=== PATIENT | female | born 1975 | race Caucasian/White ===

== ENCOUNTER → 2020-06-25 14:45 | Outpatient (BNVA) | payer MEDICARE, MEDICAID, SELFPAY | PROVIDERS: PCP Internal Medicine; Visit Provider Surgery Vascular Surgery | DX: I83.12 Varicose veins of left lower extremity with inflammation (principal) | CPT/HCPCS: 99203 ==

== ENCOUNTER 2020-07-19 03:40 | Emergency (ER) | payer MEDICARE, MEDICAID, SELFPAY ==
--- NOTE | 2020-07-19 03:43 | ED_ITS ---
HPI - Psych General Chief Complaint: Anxiety Stated Complaint: anxiety Time Seen by Provider: 07/19/20 03:42 Source: patient and EMS Mode of arrival: EMS Limitations: no limitations History of Present Illness MD complaint: anxiety Onset (ago): hour(s) (few) Duration: constant History of same: Yes Relieving factors: none Exacerbating factors: none Context: significant life stressor Associated psychiatric symptoms: none Associated symptoms: insomnia Treatments prior to arrival: other (took her venlafaxine) Related Data Home Medications Medication Instructions Recorded Confirmed buspirone 15 mg tablet mg PO 06/25/20 diclofenac sodium 75 mg mg PO 06/25/20 tablet,delayed release divalproex 500 mg tablet,delayed mg PO 06/25/20 release Allergies Allergy/AdvReac Type Severity Reaction Status Date / Time aspirin [Aspirin] Allergy Severe RASH Verified 07/19/20 03:48 codeine [CODEINE] Allergy Severe ANAPHYLAXIS Verified 07/19/20 03:48 mayonnaise [MAYONNAISE] Allergy Mild UPSET Verified 07/19/20 03:48 STOMACH, RASH morphine [Morphine] Allergy Mild AGITATION/A Verified 07/19/20 03:48 NXIETY Penicillins Allergy Mild RASH Verified 07/19/20 03:48 cheese Allergy Unknown RASH Verified 07/19/20 03:48 latex [LATEX] Allergy Unknown RASH Verified 07/19/20 03:48 acetaminophen [From Tylenol] AdvReac Mild HEADACHES Verified 07/19/20 03:48 BUTTER FLAVOR Allergy Mild RASH, Uncoded 06/06/20 14:58 UPSET STOMACH Chocolate Allergy Mild UPSET Uncoded 06/06/20 14:58 STOMACH, RASH SPICY FOOD Allergy Mild UPSET Uncoded 06/06/20 14:58 STOMACH, RASH Review of Systems Review of Systems: Constitutional : No Fever, No Chills ENT/Mouth : No Ear Pain, No Nasal Congestion, No sore throat Eyes: No Eye Pain, No Swelling, No Redness Cardiovascular : No Chest Pain, No SOB Respiratory : No Cough, No Sputum, No Dyspnea Gastrointestinal : No Nausea, No Vomiting, No Diarrhea, No Hematochezia, No Melena Genitourinary : No Dysuria, No Urinary Frequency, No Hematuria Musculoskeletal : No Myalgias Skin : No Skin Lesions, No rash Neuro : No Weakness, No Numbness, No Paresthesias, No Dizziness, No Headache Psych : positive Anxiety, positive Depression, no SI/HI Heme/Lymph: No Lymphadenopathy All other systems reviewed and are negative [facility] Past Medical History Medical History Anxiety Asthma Chronic migraine Depression Epilepsy Family History Family History Father Hypertension Stroke CVD (cardiovascular disease) Mother CVD (cardiovascular disease) Hypertension Brother No problems noted. Sister No problems noted. Son No problems noted. Daughter No problems noted. Daughter No problems noted. Social History Social History Smoking Status: Never smoker Physical Exam Vital Signs: Vital Signs: Vital Signs Temp Pulse Resp BP Pulse Ox 07/19/20 03:45 98.4 F 107 H 18 148/74 H 97 Body Mass Index 24.0 Appearance: Alert. Oriented X3. Anxious, mild acute distress. Eyes: Pupils equal, round and reactive to light. ENT: Pharynx normal. Neck: Normal inspection. Neck supple. CVS: Normal heart rate and rhythm. Pulses normal. Respiratory: No respiratory distress. Breath sounds normal. Abdomen: Soft and nontender. Skin: Skin warm and dry. Normal skin color. Normal skin turgor. Extremities: No lower extremity edema. No calf ttp Neuro: Oriented X 3. No motor deficit. No sensory deficit. Intermittent shaking both legs Course Course Course Narrative: patient feels better after IV medications stable for DC MDM - Psych MDM Narrative Medical decision making narrative: 45 yo female with hx of anxiety and seizures (compliant with depakote) comes in with panic attack at this time for anxiety will give IV ativan and observe, no other complaints, dispo per improvement Restraints Face to Face Assessment: Face to Face Assessment: Current Situation: After assessment of the patient, a review of the pertinent medical record and a discussion with nursing staff, I feel the patient requires a restrain intervention. Reaction To: [] Medical Condition: [] Behavioral State: [] Continued Need: [] Discharge Plan Discharge Clinical Impression: Anxiety Patient Disposition: Home, Self-Care Instructions: Anxiety (ED) Additional Instructions: return to ED for any worsening symptoms or concerns, please follow up with your doctor if not better Stand Alone Forms: Work/School Release
[2020-07-19 03:45] VITALS: BP 140/90; BP 148/74; PULSE 107; PULSE 150; RESP 18; TEMP 36.9; O2SAT 97; O2SAT 98; BMI 24.0
[2020-07-19] MEDS: LORazepam 2 MG/ML VIAL 1 MG IVPUSH (03:52)
--- NOTE | 2020-07-19 04:58 | PC.NURSE ---
pt very anxious when she arrived. pt has multiple dental extractions 5 days ago. after receiving 1 mg ativan, pt was able to fall asleep. no witnessed seizure activity.
[2020-07-19 05:38] VITALS: BP 101/66; PULSE 88; RESP 19; O2SAT 100
== END 2020-07-19 07:06 | disposition home or self-care (01) ==
LOC: HO.ED 04:08
PROVIDERS: Emergency Provider Emergency Medicine; PCP Internal Medicine
DX: F41.1 Generalized anxiety disorder (principal); F43.0 Acute stress reaction; G47.00 Insomnia, unspecified; Z79.899 Other long term (current) drug therapy
CPT/HCPCS: 96374; 99283; 99284; J2060

== ENCOUNTER 2020-07-29 01:36 | Emergency (ER) | payer MEDICARE, MEDICAID, SELFPAY ==
[2020-07-29 01:48] VITALS: BP 139/83; PULSE 104; RESP 20; TEMP 37.1; O2SAT 100; BMI 24.5
[2020-07-29 02:14] VITALS: BP 139/83; PULSE 107; RESP 20; TEMP 36.9; O2SAT 100
--- NOTE | 2020-07-29 02:25 | ED_ITS ---
HPI - Psych General Chief Complaint: Psychiatric Symptoms Stated Complaint: ANXIETY Time Seen by Provider: 07/29/20 02:16 Source: patient Mode of arrival: EMS Limitations: no limitations History of Present Illness HPI Narrative: Patient states she has seizures secondary to anxiety. EMS states that she had a panic attack. Patient has been a week without her buspar. Patient denies suicidal or homicidal ideations MD complaint: anxiety Onset (ago): week(s) Duration: constant Related Data Home Medications Medication Instructions Recorded Confirmed buspirone 15 mg tablet 15 mg PO DAILY 06/25/20 07/29/20 diclofenac sodium 75 mg 75 mg PO DAILY 06/25/20 07/29/20 tablet,delayed release divalproex 500 mg tablet,delayed 500 mg PO BID 06/25/20 07/29/20 release Allergies Allergy/AdvReac Type Severity Reaction Status Date / Time aspirin [Aspirin] Allergy Severe RASH Verified 07/19/20 03:48 codeine [CODEINE] Allergy Severe ANAPHYLAXIS Verified 07/19/20 03:48 mayonnaise [MAYONNAISE] Allergy Mild UPSET Verified 07/19/20 03:48 STOMACH, RASH morphine [Morphine] Allergy Mild AGITATION/A Verified 07/19/20 03:48 NXIETY Penicillins Allergy Mild RASH Verified 07/19/20 03:48 cheese Allergy Unknown RASH Verified 07/19/20 03:48 latex [LATEX] Allergy Unknown RASH Verified 07/19/20 03:48 acetaminophen [From Tylenol] AdvReac Mild HEADACHES Verified 07/19/20 03:48 BUTTER FLAVOR Allergy Mild RASH, Uncoded 06/06/20 14:58 UPSET STOMACH Chocolate Allergy Mild UPSET Uncoded 06/06/20 14:58 STOMACH, RASH SPICY FOOD Allergy Mild UPSET Uncoded 06/06/20 14:58 STOMACH, RASH Review of Systems Constitutional: Constitutional: Reports no additional constitutional complaints Eyes: Eyes: Reports no additional eye complaints ENT: Denies dizziness Cardiovascular: Cardiovascular: Reports no additional cardiovascular complaints Respiratory: Respiratory: Reports as per HPI Gastrointestinal: Gastrointestinal: Reports no additional gastrointestinal complaints Genitourinary: Genitourinary: Reports no additional female genitourinary complaints Musculoskeletal: Musculoskeletal: Reports no additional musculoskeletal complaints Integumentary/Breasts: Skin/Breast: Denies rash Neurologic: Reports system reviewed and no additional complaints, except as documented, Denies dizziness and Denies Sensory deficit (Neuro) Psychiatric: Psychiatric: Denies anxiety [facility] Past Medical History Medical History Anxiety Asthma Chronic migraine Depression Epilepsy Family History Family History Father Hypertension Stroke CVD (cardiovascular disease) Mother CVD (cardiovascular disease) Hypertension Brother No problems noted. Sister No problems noted. Son No problems noted. Daughter No problems noted. Daughter No problems noted. Social History Social History Smoking Status: Never smoker Advance Directives: No Advance Directives Information Provided: Yes Physical Exam Vital Signs: Vital Signs: Last Vital Signs Temp 98.4 F 07/29/20 02:14 Pulse 107 H 07/29/20 02:14 Resp 20 07/29/20 02:14 BP 139/83 07/29/20 02:14 Pulse Ox 100 07/29/20 02:14 Body Mass Index 24.5 Const: Other: tearful General: healthy appearing Nutritional Appearance: average body habitus Orientation/consciousness: oriented to person and patien t oriented x3 Limitations: no limitations HENMT: Head: Yes normal to inspection Ears: external ears normal General nose exam: Normal external nose present Mouth: Normal oral and palatal mucosa present and oropharynx normal Throat: Yes posterior oropharynx normal Eyes: General: appearance normal, both eyes and all related structures Neck: Other: supple Neck: Yes normal visual inspection Chest: Chest palpation & inspection: normal inspection of the chest Resp: Auscultation: clear to auscultation bilaterally Cardio: Jugular venous distension: no JVD Rate: regular rate Rhythm: regular rhythm Heart sounds: S1 normal heart sound present and S2 normal heart sound present GI: Inspection: Yes normal to inspection Palpation (GI): Soft to palpation, nontender and No hepatosplenomegaly present Auscultation: normal bowel sounds : General: Yes no CVA tenderness Back/Spine/Pelvis: Back: no CVA tenderness Skin: General skin exam: no rashes or lesions noted Neuro: General: oriented to person and patient oriented x3 Cranial nerves: Yes CN's II-XII intact bilaterally Motor exam (neuro): 5/5 motor strength present throughout Sensory Exam: No Sensory deficit (Neuro) Extrem: General: Yes normal to inspection Psych: Appearance: grossly normal Course Course Course Narrative: resting comfortably will dc home MDM - Psych MDM Narrative Medical decision making narrative: Patient having panic attack and benzodiazepine withdrawal, will dc home Restraints Face to Face Assessment: Face to Face Assessment: Current Situation: After assessment of the patient, a review of the pertinent medical record and a discussion with nursing staff, I feel the patient requires a restrain intervention. Reaction To: [] Medical Condition: [] Behavioral State: [] Continued Need: [] Lab Data Result diagrams: 07/29/20 02:39 07/29/20 02:39 Labs: Lab Results 07/29/20 07/29/20 07/29/20 Range/Units 02:39 02:39 02:39 WBC 10.6 (4.8-10.8) X10*3/uL RBC 5.12 (4.20-5.50) X10*6/uL Hgb 14.1 (12.0-16.0) g/dl Hct 44.3 (37-47) % MCV 86.5 (80-98) fL MCH 27.5 (27.0-33.0) pg MCHC 31.8 (31.0-35.0) g/dl RDW 13.6 (11.0-16.0) % Plt Count 168 (160-400) X10*3/uL MPV 13.9 H (9.4-12.3) fL Absolute Nucleated RBC 0.000 (0.0-0.012) X10*3/uL Nucleated RBC % (auto) 0.0 (0.0-0.2) /100WBC Sodium (135-145) mmol/L Potassium (3.3-5.1) mmol/l Chloride (96-108) mmol/L Carbon Dioxide (22-29) mmol/L Anion Gap (12-20) BUN (9-16) mg/dL Creatinine (0.5-1.4) mg/dL Estim Creat Clear Calc Estimated GFR Random Glucose (60-115) mg/dL Calcium (8.4-10.2) mg/dL Urine Opiates Screen Not Detected (Not Detect) Ur Barbiturates Screen Not Detected (Not Detect) Valproic Acid < 2.0 L (50.0-100.0) mcg/mL Ur Phencyclidine Scrn Not Detected (Not Detect) Ur Amphetamines Screen Not Detected (Not Detect) U Benzodiazepines Scrn Not Detected (Not Detect) Urine Cocaine Screen Not Detected (Not Detect) U Marijuana (THC) Screen Not Detected (Not Detect) 07/29/20 Range/Units 02:39 WBC (4.8-10.8) X10*3/uL RBC (4.20-5.50) X10*6/uL Hgb (12.0-16.0) g/dl Hct (37-47) % MCV (80-98) fL MCH (27.0-33.0) pg MCHC (31.0-35.0) g/dl RDW (11.0-16.0) % Plt Count (160-400) X10*3/uL MPV (9.4-12.3) fL Absolute Nucleated RBC (0.0-0.012) X10*3/uL Nucleated RBC % (auto) (0.0-0.2) /100WBC Sodium 140 (135-145) mmol/L Potassium 4.0 (3.3-5.1) mmol/l Chloride 108 (96-108) mmol/L Carbon Dioxide 24 (22-29) mmol/L Anion Gap 12 (12-20) BUN 6 L (9-16) mg/dL Creatinine 0.87 (0.5-1.4) mg/dL Estim Creat Clear Calc 68.1 Estimated GFR > 60 Random Glucose 97 (60-115) mg/dL Calcium 9.3 (8.4-10.2) mg/dL Urine Opiates Screen (Not Detect) Ur Barbiturates Screen (Not Detect) Valproic Acid (50.0-100.0) mcg/mL Ur Phencyclidine Scrn (Not Detect) Ur Amphetamines Screen (Not Detect) U Benzodiazepines Scrn (Not Detect) Urine Cocaine Screen (Not Detect) U Marijuana (THC) Screen (Not Detect) Discharge Plan Discharge Clinical Impression: Acute anxiety Patient Disposition: Home, Self-Care Instructions: Anxiety (ED) Referrals: Physician,Unknown [Primary Care Provider] - 2 days (Call your doctor in 2 days)
[2020-07-29] MEDS: LORazepam 1 MG TABLET 2 MG PO (02:29)
[2020-07-29] MEDS: busPIRone HCl 10 MG TABLET PO (02:34)
[2020-07-29] MEDS: busPIRone HCl 5 MG TABLET PO (02:34)
--- NOTE | 2020-07-29 02:38 | PC.NURSE ---
Patient anxious received Ativan 2 mg as ordered, provider saw the patient also ordered Buspar 15 mg/administered as ordered, patient compliant with lab draw, no crises order, plan to d/c patient in the morning. Will continue to monitor.
[2020-07-29 02:48] LABS: Hemoglobin 14.1 g/dl (12.0-16.0); PLT ABN DIST 1; WBC ABN SCTR FOR CBC 1
[2020-07-29 02:50] LABS: Hematocrit 44.3 % (37-47); Mean Corpuscular HGB Conc 31.8 g/dl (31.0-35.0); Mean Corpuscular Hemoglobin 27.5 pg (27.0-33.0); Mean Corpuscular Volume 86.5 fL (80-98); Mean Platelet Volume 13.9 fL (9.4-12.3); Platelet Count 168 X10*3/uL (160-400); Red Blood Count 5.12 X10*6/uL (4.20-5.50); Red Cell Distribution Width 13.6 % (11.0-16.0)
[2020-07-29 02:54] LABS: White Blood Count 10.6 X10*3/uL (4.8-10.8)
[2020-07-29 03:02] LABS: Amphetamine Screen Urine Not Detected (Not Detect); Barbiturates, Urine Not Detected (Not Detect); Benzodiazepines Screen Urine Not Detected (Not Detect); Cannabinoid Screen Urine Not Detected (Not Detect); Cocaine Screen Urine Not Detected (Not Detect); Opiate Screen Urine Not Detected (Not Detect); Phencyclidine Screen Urine Not Detected (Not Detect)
[2020-07-29 03:11] LABS: Anion Gap 12 (12-20); Blood Urea Nitrogen 6 mg/dL (9-16); Calcium 9.3 mg/dL (8.4-10.2); Carbon Dioxide 24 mmol/L (22-29); Chloride 108 mmol/L (96-108); Creatinine Clr Calc Pharmacy 68.1; Estimated Glomerular Filt Rate > 60; Glucose Random 97 mg/dL (60-115); Sodium 140 mmol/L (135-145)
[2020-07-29 03:42] LABS: Valproate < 2.0 mcg/mL (50.0-100.0)
--- NOTE | 2020-07-29 04:54 | PC.NURSE ---
Patient in bed appears sleeping comfortably, no distress observed/reported, respiration +/=/non-labored bilaterally, will continue to monitor.
--- NOTE | 2020-07-29 04:59 | PC.NURSE ---
At the time admission patient reported she is compliant with depokote, patient depakote level is 2, provider notified/no new order.
[2020-07-29 06:21] VITALS: RESP 17
[2020-07-29 06:36] VITALS: BP 117/65; PULSE 95; RESP 17; TEMP 36.3; O2SAT 100
== END 2020-07-29 06:40 | disposition home or self-care (01) ==
PROVIDERS: Physician Assistant; Emergency Provider Emergency Medicine
DX: F41.1 Generalized anxiety disorder (principal); F43.0 Acute stress reaction; Z79.899 Other long term (current) drug therapy
CPT/HCPCS: 36415; 80048; 80164; 80307; 85027; 99283

== ENCOUNTER 2020-07-30 22:01 | Emergency (ER) | payer MEDICARE, MEDICAID, SELFPAY ==
[2020-07-30 22:09] VITALS: BP 135/86; BP 148/86; PULSE 105; PULSE 109; RESP 16; TEMP 36.9; O2SAT 97; O2SAT 99; BMI 25.3
--- NOTE | 2020-07-30 23:06 | ED.SEIZURE ---
HPI - Seizure General Chief Complaint: Seizure Stated Complaint: SEIZURE Time Seen by Provider: 07/30/20 22:52 Source: patient Mode of arrival: ambulatory Limitations: no limitations History of Present Illness HPI Narrative: patient comes to the emergency room complaining of a seizure. Patient states she was walking down the stairs and she had a seizure. 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 Patient is not sure what happened today. Patient states for the last 2 weeks she has been having increased anxiety after a dental surgery were all her upper teeth were taken out. It is unclear if patient had postictal state, states she was confused for a few minutes and then she was back to baseline feeling very anxious MD complaint: other ( seizure versus pseudo-seizure) Seizure History: Yes Place: Home Related Data Home Medications Medication Instructions Recorded Confirmed diclofenac sodium 75 mg 75 mg PO DAILY 06/25/20 07/29/20 tablet,delayed release divalproex 500 mg tablet,delayed 500 mg PO BID 06/25/20 07/29/20 release Previous Rx's Medication Instructions Recorded buspirone 15 mg tablet 15 mg PO DAILY 30 Days #30 tab 07/30/20 venlafaxine 75 mg capsule,extended 75 mg PO DAILY 30 Days #30 cap 07/30/20 release 24 hr Allergies Allergy/AdvReac Type Severity Reaction Status Date / Time aspirin [Aspirin] Allergy Severe RASH Verified 07/19/20 03:48 codeine [CODEINE] Allergy Severe ANAPHYLAXIS Verified 07/19/20 03:48 mayonnaise [MAYONNAISE] Allergy Mild UPSET Verified 07/19/20 03:48 STOMACH, RASH morphine [Morphine] Allergy Mild AGITATION/A Verified 07/19/20 03:48 NXIETY Penicillins Allergy Mild RASH Verified 07/19/20 03:48 cheese Allergy Unknown RASH Verified 07/19/20 03:48 latex [LATEX] Allergy Unknown RASH Verified 07/19/20 03:48 acetaminophen [From Tylenol] AdvReac Mild HEADACHES Verified 07/19/20 03:48 BUTTER FLAVOR Allergy Mild RASH, Uncoded 06/06/20 14:58 UPSET STOMACH Chocolate Allergy Mild UPSET Uncoded 06/06/20 14:58 STOMACH, RASH SPICY FOOD Allergy Mild UPSET Uncoded 06/06/20 14:58 STOMACH, RASH Review of Systems Review of Systems: Constitutional : No Weight loss, No Fever, No Chills, No Night Sweats, No Fatigue, No Malaise ENT/Mouth : No Hearing loss, No Ear Pain, No Nasal Congestion, No Sinus Pain, No Hoarseness, No sore throat, No Rhinorrhea, No Swallowing Difficulty, complaining of gum pain Eyes: No Eye Pain, No Swelling, No Redness, No Foreign Body, No Discharge, No Vision Changes Cardiovascular : No Chest Pain, No SOB, No Dyspnea on Exertion, No Orthopnea, No Edema, No Palpitations Respiratory : No Cough, No Sputum, No Wheezing, No Smoke Exposure, No Dyspnea Gastrointestinal : No Nausea, No Vomiting, No Diarrhea, No Constipation, No abdominal Pain, No Hematochezia, No Melena Genitourinary : no irregular bleeding, No Dysuria, No Urinary Frequency, No Hematuria, No Urinary Incontinence, No Urgency, No Flank Pain, No Urinary Flow Changes, No Hesitancy Musculoskeletal : No joint pain, No Myalgias, No Joint Swelling Skin : No Skin Lesions, No rash Neuro : No Weakness, No Numbness, No Paresthesias, No Loss of Consciousness, No Dizziness, No Headache, complaining of seizure versus pseudo-seizure Psych : complaining of anxiety, No Depression, No SI/HI/AH/VH, No Social Issues, Heme/Lymph: No Bruising, No Bleeding,No Lymphadenopathy Endocrine : No Polyuria, No Polydipsia, No Temperature Intolerance PMFSH Past Medical History Medical History Anxiety Asthma Chronic migraine Depression Epilepsy Family History Family History Father Hypertension Stroke CVD (cardiovascular disease) Mother CVD (cardiovascular disease) Hypertension Brother No problems noted. Sister No problems noted. Son No problems noted. Daughter No problems noted. Daughter No problems noted. Social History Social History Alcohol intake: never Smoking Status: Never smoker Smoked in Last 30 Days: No Use of substances other than those prescribed or required for medical reasons: No Advance Directives: No Advance Directives Information Provided: Yes Physical Exam Vital Signs: Vital Signs: Last Vital Signs Temp 98.5 F 07/30/20 22:09 Pulse 109 H 07/30/20 22:09 Resp 16 07/30/20 22:09 BP 148/86 H 07/30/20 22:09 Pulse Ox 97 07/30/20 22:09 Body Mass Index 25.3 Appearance: Alert. Oriented X3. very anxious, crying Eyes: Pupils equal, round and reactive to light. ENT: Pharynx normal. patient has no teeth in the upper part of her mouth, no signs of infection, no bleeding Neck: Normal inspection. Neck supple. No lymph nodes noted. No crepitus CVS: Normal heart rate and rhythm. Pulses normal. Normal S1 and S2 Respiratory: No respiratory distress. Breath sounds normal. No Wheezing. No rales Abdomen: Soft and nontender. No rigidity. No distention. good BS x4 Skin: Skin warm and dry. Normal skin color. Normal skin turgor. Extremities: No lower extremity edema. No lower extremity edema. No Lacerations. No Rash Neuro: Oriented X 3. No motor deficit. No sensory deficit. Moving all extermities. No slurred speech. Course Course Course Narrative: patient's white blood cell count is elevated likely secondary to the Oral surgery she has had. Patient's lactic acid within normal limits, patient is not febrile, not tachycardic, sepsis is not suspected at this time. patient received 2 mg of Ativan, she was extremely anxious, did well after the 2 mg. No seizure-like activity seen in the emergency room. Patient instructed to follow-up with her neurologist. Patient states she has enough of her Depakote at home. She will draft roller picker her anxiety medication tomorrow at her pharmacy MDM - Seizure MDM Narrative Medical decision making narrative: I discussed the labs with the patient, patient instructed to follow-up with her primary care physician and with her neurologist. At this time, it is unclear if patient is having seizures versus pseudoseizures. However, patient does have increased anxiety. Lab Data Result diagrams: 07/30/20 23:31 07/30/20 23:31 Labs: Lab Results 07/30/20 07/30/20 07/30/20 Range/Units 23:31 23:31 23:31 WBC 17.0 H (4.8-10.8) X10*3/uL RBC 4.85 (4.20-5.50) X10*6/uL Hgb 13.4 (12.0-16.0) g/dl Hct 41.1 (37-47) % MCV 84.7 (80-98) fL MCH 27.6 (27.0-33.0) pg MCHC 32.6 (31.0-35.0) g/dl RDW 13.6 (11.0-16.0) % Plt Count 198 (160-400) X10*3/uL MPV Not Reportable Immature Gran % (Auto) 0.3 (0.0-0.4) % Neut % (Auto) 81.9 H (45-73) % Lymph % (Auto) 11.7 L (20-40) % [place] % (Auto) 5.5 (2-11) % Eos % (Auto) 0.1 (0-4) % Baso % (Auto) 0.5 (0-2) % Lymph # (Auto) 2.0 (1.2-4.9) X10*3/uL [place] # (Auto) 0.9 (0.1-1.2) X10*3/uL Eos # (Auto) 0.0 (0.0-0.4) X10*3/uL Baso # (Auto) 0.1 (0.0-0.2) X10*3/uL Abs Immat Gran (auto) 0.05 H (0.00-0.03) X10*3/uL Absolute Neuts (auto) 13.9 H (2.0-8.3) X10*3/uL Absolute Nucleated RBC 0.000 (0.0-0.012) X10*3/uL Nucleated RBC % (auto) 0.0 (0.0-0.2) /100WBC Sodium 139 (135-145) mmol/L Potassium 3.9 (3.3-5.1) mmol/l Chloride 106 (96-108) mmol/L Carbon Dioxide 23 (22-29) mmol/L Anion Gap 14 (12-20) BUN 10 D (9-16) mg/dL Creatinine 0.85 (0.5-1.4) mg/dL Estim Creat Clear Calc 70.7 Estimated GFR > 60 Random Glucose 90 (60-115) mg/dL Lactic Acid 1.7 (0.5-2.0) mmol/L Calcium 9.1 (8.4-10.2) mg/dL Total Bilirubin 0.4 (0.0-1.0) mg/dL Direct Bilirubin < 0.2 (0.0-0.5) mg/dL AST 19 (5-31) U/L ALT 12 (0-31) U/L Alkaline Phosphatase 79 (39-117) U/L Total Protein 7.7 (6.5-8.0) g/dL Albumin 4.4 (3.5-5.0) g/dL Urine Color Urine Appearance Urine pH (5.0-8.0) Ur Specific [place] (1.005-1.025) Urine Protein (NEG-TRACE) MG/DL Urine Glucose (UA) (NEG) MG/DL Urine Ketones (NEG) MG/DL Urine Blood (NEG) Urine Nitrite (NEG) Ur Leukocyte Esterase (NEG) Urine RBC (0) /HPF Urine WBC (0-4) /HPF Ur Squamous Epith Cells /LPF Urine Bacteria /LPF 07/30/20 Range/Units 23:31 WBC (4.8-10.8) X10*3/uL RBC (4.20-5.50) X10*6/uL Hgb (12.0-16.0) g/dl Hct (37-47) % MCV (80-98) fL MCH (27.0-33.0) pg MCHC (31.0-35.0) g/dl RDW (11.0-16.0) % Plt Count (160-400) X10*3/uL MPV Immature Gran % (Auto) (0.0-0.4) % Neut % (Auto) (45-73) % Lymph % (Auto) (20-40) % [place] % (Auto) (2-11) % Eos % (Auto) (0-4) % Baso % (Auto) (0-2) % Lymph # (Auto) (1.2-4.9) X10*3/uL [place] # (Auto) (0.1-1.2) X10*3/uL Eos # (Auto) (0.0-0.4) X10*3/uL Baso # (Auto) (0.0-0.2) X10*3/uL Abs Immat Gran (auto) (0.00-0.03) X10*3/uL Absolute Neuts (auto) (2.0-8.3) X10*3/uL Absolute Nucleated RBC (0.0-0.012) X10*3/uL Nucleated RBC % (auto) (0.0-0.2) /100WBC Sodium (135-145) mmol/L Potassium (3.3-5.1) mmol/l Chloride (96-108) mmol/L Carbon Dioxide (22-29) mmol/L Anion Gap (12-20) BUN (9-16) mg/dL Creatinine (0.5-1.4) mg/dL Estim Creat Clear Calc Estimated GFR Random Glucose (60-115) mg/dL Lactic Acid (0.5-2.0) mmol/L Calcium (8.4-10.2) mg/dL Total Bilirubin (0.0-1.0) mg/dL Direct Bilirubin (0.0-0.5) mg/dL AST (5-31) U/L ALT (0-31) U/L Alkaline Phosphatase (39-117) U/L Total Protein (6.5-8.0) g/dL Albumin (3.5-5.0) g/dL Urine Color STRAW Urine Appearance CLEAR Urine pH 7.0 (5.0-8.0) Ur Specific [place] 1.010 (1.005-1.025) Urine Protein NEG (NEG-TRACE) MG/DL Urine Glucose (UA) NEG (NEG) MG/DL Urine Ketones NEG (NEG) MG/DL Urine Blood 1+ H (NEG) Urine Nitrite NEG (NEG) Ur Leukocyte Esterase NEG (NEG) Urine RBC 0-2 (0) /HPF Urine WBC 0-2 (0-4) /HPF Ur Squamous Epith Cells 2+ /LPF Urine Bacteria NONE /LPF Discharge Plan Discharge Clinical Impression: Seizure Patient Disposition: Home, Self-Care Instructions: Epilepsy (ED) Additional Instructions: please follow-up with your neurologist, please call tomorrow to schedule an appointment. Please make sure to draft roller picker your medication tomorrow at the pharmacy. Please follow-up with your primary care physician tomorrow. If you have any worsening or new symptoms, please return to the emergency room or call 911 Prescriptions: No Action venlafaxine 75 mg capsule,extended release 24hr 75 mg PO DAILY 30 Days Qty: 30 RF: 1 buspirone 15 mg tablet 15 mg PO DAILY 30 Days Qty: 30 RF: 1 divalproex 500 mg tablet,delayed release (DR/EC) 500 mg PO BID RF: 0 diclofenac sodium 75 mg tablet,delayed release (DR/EC) 75 mg PO DAILY RF: 0
[2020-07-30 23:41] LABS: Basophils Percent Auto 0.5 % (0-2); Eosinophils Percent Auto 0.1 % (0-4); Imm Gran Abs Auto 0.05 X10*3/uL (0.00-0.03); Imm Gran Pct Auto 0.3 % (0.0-0.4); PLT ABN DIST 1; Red Blood Count 4.85 X10*6/uL (4.20-5.50); SCAN SMEAR FLAG 1; WBC ABN SCTR 1; WBC ABN SCTR FOR CBC 1
[2020-07-30] MEDS: LORazepam 2 MG/ML VIAL IVPUSH (23:42)
[2020-07-30] MEDS: 0.9 % Sodium Chloride 1,000 ML 999 ML IVCONT (23:42)
[2020-07-30 23:43] LABS: Basophils Absolute Auto 0.1 X10*3/uL (0.0-0.2); Hematocrit 41.1 % (37-47); Hemoglobin 13.4 g/dl (12.0-16.0); Lymphocytes Percent Auto 11.7 % (20-40); Mean Corpuscular HGB Conc 32.6 g/dl (31.0-35.0); Mean Corpuscular Hemoglobin 27.6 pg (27.0-33.0); Mean Corpuscular Volume 84.7 fL (80-98); Monocytes Absolute Auto 0.9 X10*3/uL (0.1-1.2); Monocytes Percent Auto 5.5 % (2-11); Neutrophils Absolute Auto 13.9 X10*3/uL (2.0-8.3); Neutrophils Percent Auto 81.9 % (45-73); Platelet Count 198 X10*3/uL (160-400); Red Cell Distribution Width 13.6 % (11.0-16.0)
[2020-07-30 23:44] LABS: MANUAL DIFF FLAG NO
--- NOTE | 2020-07-30 23:47 | PC.NURSE ---
Patient requested to use bathroom. This RN offered to assist/ambulate patient to the bathroom, however, patient refused. Patient states my brain hurts and my legs shake and I get dizzy. It's hot. Pt appears anxious. Pt refused ambulation at this time, offered and used bedpan. Pt able to provide urine specimen. Labs drawn and sent for analysis. Awaiting results. Medicated as ordered with Normal Saline 0.9% 1 liter, and Ativan 2mg IV. Will continue to monitor.
[2020-07-30 23:51] LABS: Glucose Urine UA NEG (NEG); Leukocyte Esterase Urine NEG (NEG); Nitrite Urine NEG (NEG); Urine Blood 1+ (NEG); Urine Ketones NEG (NEG); Urine Protein NEG (NEG-TRACE)
[2020-07-30 23:53] LABS: Appearance Urine CLEAR; Color Urine STRAW
[2020-07-31 00:08] LABS: Lactic Acid 1.7 mmol/L (0.5-2.0)
[2020-07-31 00:09] LABS: RBC Urine 0-2 /HPF (0); Squamous Epithelial Cell Urine 2+ /LPF; WBC Urine 0-2 /HPF (0-4)
[2020-07-31 00:14] LABS: Alanine Aminotransferase 12 U/L (0-31); Albumin Level 4.4 g/dL (3.5-5.0); Alkaline Phosphatase 79 U/L (39-117); Anion Gap 14 (12-20); Aspartate Amino Transferase 19 U/L (5-31); Bilirubin Direct < 0.2 mg/dL (0.0-0.5); Bilirubin Total 0.4 mg/dL (0.0-1.0); Blood Urea Nitrogen 10 mg/dL (9-16); Calcium 9.1 mg/dL (8.4-10.2); Carbon Dioxide 23 mmol/L (22-29); Chloride 106 mmol/L (96-108); Creatinine Clr Calc Pharmacy 70.7; Estimated Glomerular Filt Rate > 60; Glucose Random 90 mg/dL (60-115); Potassium 3.9 mmol/l (3.3-5.1); Sodium 139 mmol/L (135-145); Total Protein 7.7 g/dL (6.5-8.0)
[2020-07-31 01:49] VITALS: BP 136/76; PULSE 103; RESP 20; O2SAT 97
== END 2020-07-31 01:45 | disposition home or self-care (01) ==
PROVIDERS: Emergency Provider Emergency Medicine; PCP Internal Medicine
DX: R56.9 Unspecified convulsions (principal); I10 Essential (primary) hypertension; Z79.899 Other long term (current) drug therapy
CPT/HCPCS: 36415; 80048; 80076; 81001; 83605; 85025; 96361; 96374; 99284; J2060

== ENCOUNTER 2020-08-20 10:36 | Outpatient (REF) | payer MEDICARE, MEDICAID, SELFPAY ==
--- NOTE | 2020-08-20 10:38 | CT_ITS ---
EXAMINATION: CT HEAD WITHOUT CONTRAST CLINICAL INFORMATION: Seizure disorder. Anxiety. COMPARISON: Previous head CT September 2008 TECHNIQUE: Contiguous axial imaging was performed from the skull base to vertex without intravenous administration of contrast. This CT examination was performed using dose optimization techniques as appropriate, variously including the following: *Automated exposure control *Adjustment of mA and/or kV according to patient size (this includes techniques or standardized protocols for targeted exams where dose is matched to indication/reason for exam; i.e. extremities or head) *Use of iterative reconstruction technique DLP: 634 mGy-cm FINDINGS: There is no evidence of acute intracranial hemorrhage or territorial infarction. No abnormal mass effect or midline shift is seen. Hoffman to white matter differentiation is well preserved. No extra-axial fluid collections are identified. The ventricles are normal in size. There is no abnormal attenuation within the brain parenchyma. The osseous structures and soft tissues are normal. The mastoid air cells and visualized portions of the paranasal sinuses are well aerated. CT/CT head/brain wo con IMPRESSION: Unremarkable exam.
== END 2020-08-20 10:37 | disposition home or self-care (01) ==
LOC: HO.CT 10:36
PROVIDERS: PCP Internal Medicine; Visit Provider Psychiatry & Neurology Neurology
DX: G40.909 Epilepsy, unspecified, not intractable, without status epilepticus (principal)
CPT/HCPCS: 70450

== ENCOUNTER 2020-10-19 23:56 | Emergency (ER) | payer OTHER, SELFPAY ==
[2020-10-20 00:08] VITALS: BP 132/78; PULSE 98; RESP 18; TEMP 37.1; O2SAT 98; BMI 23.6
--- NOTE | 2020-10-20 00:22 | ED_ITS ---
HPI - Anxiety General Chief Complaint: Anxiety Stated Complaint: Anxiety Time Seen by Provider: 10/20/20 00:09 Source: patient and EMS Mode of arrival: EMS Limitations: no limitations History of Present Illness HPI narrative: 45-year-old female with past medical history of anxiety with panic, asthma migraines depression and epilepsy presents with anxiety and panic. Patient states that she has been feeling anxiety for most of the day, took her Depakote and lorazepam as directed with poor effect, she admits to taking a 2nd dose of Ativan 3 hours ago with poor effect. She does have multiple allergies and states that when she goes to panic attacks that she usually has a seizure. She does not describe any chest pain or pressure, palpitations, shortness breath, abdominal pain, abdominal distention, dysuria, hematuria, fevers and chills. She does not report any physical assault, sexual assault, or any precipitating factors to this anxiety panic attack. MD complaint: anxiety Onset (ago): hour(s) Symptoms: extremity numbness/tingling Severity: severe Quality: constant Place: home History of similar episodes: Yes Provoking factors: none known Relieving factors: nothing Exacerbating factors: thinking about event Associated symptoms: denies other symptoms Related Data Home Medications Medication Instructions Recorded Confirmed diclofenac sodium 75 mg 75 mg PO DAILY 06/25/20 07/29/20 tablet,delayed release divalproex 500 mg tablet,delayed 500 mg PO BID 06/25/20 07/29/20 release Previous Rx's Medication Instructions Recorded buspirone 15 mg tablet 15 mg PO DAILY 30 Days #30 tab 07/30/20 venlafaxine 75 mg capsule,extended 75 mg PO DAILY 30 Days #30 cap 07/30/20 release 24 hr Allergies Allergy/AdvReac Type Severity Reaction Status Date / Time aspirin [Aspirin] Allergy Severe RASH Verified 07/19/20 03:48 codeine [CODEINE] Allergy Severe ANAPHYLAXIS Verified 07/19/20 03:48 mayonnaise [MAYONNAISE] Allergy Mild UPSET Verified 07/19/20 03:48 STOMACH, RASH morphine [Morphine] Allergy Mild AGITATION/A Verified 07/19/20 03:48 NXIETY Penicillins Allergy Mild RASH Verified 07/19/20 03:48 cheese Allergy Unknown RASH Verified 07/19/20 03:48 latex [LATEX] Allergy Unknown RASH Verified 07/19/20 03:48 shrimp Allergy Shortness Verified 10/20/20 00:17 of Breath acetaminophen [From Tylenol] AdvReac Mild HEADACHES Verified 07/19/20 03:48 BUTTER FLAVOR Allergy Mild RASH, Uncoded 06/06/20 14:58 UPSET STOMACH Chocolate Allergy Mild UPSET Uncoded 06/06/20 14:58 STOMACH, RASH SPICY FOOD Allergy Mild UPSET Uncoded 06/06/20 14:58 STOMACH, RASH Review of Systems Review of Systems: Constitutional: No Fever, No Chills ENT/Mouth: No Ear Pain, No Nasal Congestion, No sore throat Eyes: No Eye Pain, No Swelling, No Redness Cardiovascular: No Chest Pain, No SOB Respiratory: No Cough, No Sputum, No Dyspnea Gastrointestinal: No Nausea, No Vomiting, No Diarrhea, No Hematochezia, No Melena Genitourinary: No Dysuria, No Urinary Frequency, No Hematuria Musculoskeletal: No Myalgias Skin: No Skin Lesions, No rash Neuro: No Weakness, No Numbness, No Paresthesias, No Dizziness, No Headache Psych: positive Anxiety, no Depression, no SI/HI Heme/Lymph: No Lymphadenopathy Endocrine: No Polyuria, No Polydipsia Yes all other systems are reviewed and are negative [facility] Past Medical History Attestation statement: The following information was validated with the patient. Source: old records reviewed Medical History Anxiety Asthma Chronic migraine Depression Epilepsy Family History Family History Father Hypertension Stroke CVD (cardiovascular disease) Mother CVD (cardiovascular disease) Hypertension Brother No problems noted. Sister No problems noted. Son No problems noted. Daughter No problems noted. Daughter No problems noted. Social History Social History Alcohol intake: never Smoking Status: Never smoker Advance Directives: No Physical Exam Vital Signs: Vital Signs: Last Vital Signs Temp 97.8 F 10/20/20 01:00 Pulse 88 10/20/20 01:00 Resp 16 10/20/20 01:00 BP 117/78 10/20/20 01:00 Pulse Ox 100 10/20/20 01:00 Body Mass Index 23.6 Appearance: Alert. Oriented X3. No acute distress. Eyes: Pupils equal, round and reactive to light. ENT: Pharynx normal. Neck: Normal inspection. Neck supple. CVS: Normal heart rate and rhythm. Pulses normal. Respiratory: No respiratory distress. Breath sounds normal. Abdomen: Soft and nontender. Skin: Skin warm and dry. Normal skin color. Normal skin turgor. Extremities: No lower extremity edema. Neuro: No motor deficit. No sensory deficit. Course Course Course Narrative: 45-year-old female with past medical history of anxiety with panic, asthma migraines depression and epilepsy presents with anxiety and panic. Patient states that she has been feeling anxiety for most of the day, took her Depakote and lorazepam as directed with poor effect, she admits to taking a 2nd dose of Ativan 3 hours ago with poor effect. She does have multiple allergies and states that when she goes to panic attacks that she usually has a seizure. Plan of care is for Valium 5 mg p.o. and watchful waiting. Patient stated that she had headache, will treat with Fioricet for migraine. Patient states that she feels stable enough to go home, call out to her for ride. Patient verbalized understanding of and agrees to plan of care dis charge home. MDM - Anxiety Differential Diagnosis Differential diagnosis: Likely hyperventilation, panic disorder and acute anxiety Medical Records Attestation: I reviewed the patient's medical records. Discharge Plan Discharge Clinical Impression: Acute anxiety, Hyperventilation, Panic disorder Migraine Qualifiers: Migraine type: unspecified Status migrainosus presence: without status migrainosus Intractability: intractable Qualified Code(s): G43.919 - Migraine, unspecified, intractable, without status migrainosus Patient Disposition: Home, Self-Care Instructions: Migraine Headache (ED), Panic Disorder (ED), Anxiety (ED), Panic Attack (ED) Additional Instructions: You were evaluated for anxiety and panic attack. Please follow-up with your primary care physician and or whoever prescribes your medications. You may consider medication adjustment. Thank you for choosing this emergency department for evaluation. Please follow-up with primary care physician as needed. Return to the emergency department for any new, concerning, or worsening symptoms. Prescriptions: No Action venlafaxine 75 mg capsule,extended release 24hr 75 mg PO DAILY 30 Days Qty: 30 RF: 1 buspirone 15 mg tablet 15 mg PO DAILY 30 Days Qty: 30 RF: 1 divalproex 500 mg tablet,delayed release (DR/EC) 500 mg PO BID RF: 0 diclofenac sodium 75 mg tablet,delayed release (DR/EC) 75 mg PO DAILY RF: 0
[2020-10-20] MEDS: diazePAM 5 MG TABLET PO (00:24)
[2020-10-20 01:00] VITALS: BP 117/78; PULSE 88; RESP 16; TEMP 36.6; O2SAT 100
[2020-10-20] MEDS: Butalb/Acetamin/Caff 50/325/40 TABLET 1 TAB PO (01:18)
== END 2020-10-20 01:32 | disposition home or self-care (01) ==
PROVIDERS: Emergency Provider Internal Medicine; PCP Internal Medicine
DX: G43.919 Migraine, unspecified, intractable, without status migrainosus (principal); R20.0 Anesthesia of skin; F41.1 Generalized anxiety disorder; F43.0 Acute stress reaction; R06.4 Hyperventilation; Z79.899 Other long term (current) drug therapy
CPT/HCPCS: 99283

== ENCOUNTER 2020-11-18 14:02 | Emergency (ER) | payer OTHER, SELFPAY ==
--- NOTE | ~2020-11-18 | CT_ITS ---
EXAMINATION: CT ABDOMEN AND PELVIS WITHOUT CONTRAST CLINICAL INFORMATION: Right flank pain. Hematuria. Urinary retention COMPARISON: CT scan abdomen pelvis 10/06/2017 TECHNIQUE: Multidetector volumetric imaging was performed from the superior aspect of the liver through the pubic symphysis. Sagittal and coronal reformatted images were obtained on the technologist's workstation. This CT examination was performed using dose optimization techniques as appropriate, variously including the following: *Automated exposure control *Adjustment of mA and/or kV according to patient size (this includes techniques or standardized protocols for targeted exams where dose is matched to indication/reason for exam; i.e. extremities or head) *Use of iterative reconstruction technique DLP: 273 mGy-cm FINDINGS: LUNG BASES: The visualized lung bases are unremarkable. LIVER, GALLBLADDER, AND BILIARY TREE: The liver is normal in size, shape, and attenuation. No focal hepatic lesion or biliary ductal dilatation is present. Status post cholecystectomy. PANCREAS: Unremarkable. SPLEEN: Unremarkable. ADRENAL GLANDS: Unremarkable. KIDNEYS AND URETERS: There are several less than 1 mm size stones in the lower pole the right kidney. Axial image [id number] sequence 4. In the midpole left kidney there is a 1 mm stone axial image [id number] There are no ureteral calculi. There is no hydronephrosis. (There is a calcified phlebolith in the lower left pelvis, image [id number]) BLADDER: Unremarkable. GASTROINTESTINAL TRACT: No acute abnormality. No significant diverticula. There is no bowel wall thickening /edema. There is no bowel obstruction. There is a large volume of stool throughout the colon. The appendix is normal . The small bowel loops are unremarkable. The stomach is normal. There is no hiatal hernia. ABDOMINAL WALL: No significant hernia is appreciated. LYMPH NODES: Normal. VASCULAR: Unremarkable. PELVIC VISCERA: Unremarkable. OSSEOUS STRUCTURES: Unremarkable. CT/CT abdomen pelvis wo con IMPRESSION: 1. There are a few tiny stones in both the right and left kidneys. No ureteral calculi or hydronephrosis. The bladder is unremarkable. 2. There is a large volume of stool in the colon. No acute abnormality of the bowel. The appendix is normal.
[2020-11-18 15:57] VITALS: BP 124/73; PULSE 91; RESP 18; TEMP 36.8; O2SAT 99; BMI 23.6
[2020-11-18 16:38] LABS: Hemoglobin 13.6 g/dl (12.0-16.0); Imm Gran Abs Auto 0.05 X10*3/uL (0.00-0.03); Imm Gran Pct Auto 0.3 % (0.0-0.4); SCAN SMEAR FLAG 1
[2020-11-18 16:39] LABS: Basophils Absolute Auto 0.1 X10*3/uL (0.0-0.2); Basophils Percent Auto 0.5 % (0-2); Eosinophils Percent Auto 0.1 % (0-4); Hematocrit 41.8 % (37-47); Lymphocytes Absolute Auto 2.7 X10*3/uL (1.2-4.9); Lymphocytes Percent Auto 18.6 % (20-40); Mean Corpuscular HGB Conc 32.5 g/dl (31.0-35.0); Mean Corpuscular Hemoglobin 28.9 pg (27.0-33.0); Mean Corpuscular Volume 88.7 fL (80-98); Mean Platelet Volume 13.8 fL (9.4-12.3); Monocytes Absolute Auto 1.1 X10*3/uL (0.1-1.2); Monocytes Percent Auto 7.6 % (2-11); Neutrophils Absolute Auto 10.5 X10*3/uL (2.0-8.3); Neutrophils Percent Auto 72.9 % (45-73); Platelet Count 169 X10*3/uL (160-400); Red Blood Count 4.71 X10*6/uL (4.20-5.50); Red Cell Distribution Width 14.3 % (11.0-16.0); White Blood Count 14.4 X10*3/uL (4.8-10.8)
[2020-11-18 16:40] LABS: Appearance Urine HAZY; Color Urine STRAW; Glucose Urine UA NEG (NEG); Leukocyte Esterase Urine 2+ (NEG); Nitrite Urine NEG (NEG); PH 7.5 (5.0-8.0); UACC Culture Trigger YES; Urine Blood 3+ (NEG); Urine Ketones NEG (NEG); Urine Protein NEG (NEG-TRACE)
[2020-11-18 16:42] LABS: PLT ABN DIST 1
[2020-11-18 16:43] LABS: MANUAL DIFF FLAG NO
[2020-11-18 16:54] LABS: Alanine Aminotransferase 14 U/L (0-31); Albumin Level 4.4 g/dL (3.5-5.0); Alkaline Phosphatase 79 U/L (39-117); Anion Gap 11 (12-20); Aspartate Amino Transferase 19 U/L (5-31); Bilirubin Total 0.4 mg/dL (0.0-1.0); Blood Urea Nitrogen 10 mg/dL (9-16); Calcium 8.9 mg/dL (8.4-10.2); Carbon Dioxide 29 mmol/L (22-29); Chloride 104 mmol/L (96-108); Creatinine Clr Calc Pharmacy 61.5; Estimated Glomerular Filt Rate > 60; Glucose Random 72 mg/dL (60-115); Potassium 3.9 mmol/L (3.3-5.1); Sodium 140 mmol/L (135-145); Total Protein 7.9 g/dL (6.5-8.0)
[2020-11-18 17:15] LABS: Bacteria Urine 1+ /LPF; RBC Urine TNTC /HPF (0); Squamous Epithelial Cell Urine 2+ /LPF; WBC Urine 30-49 /HPF (0-4)
--- NOTE | 2020-11-18 18:26 | ED.FEMALEGU ---
HPI - Female Genitourinary General Chief complaint: Urogenital-Female Stated complaint: blood in urine Source: patient Mode of arrival: ambulatory Limitations: no limitations History of Present Illness HPI Narrative: 45-year-old female with past medical history of multiple allergies, anxiety, asthma, chronic migraines, depression, epilepsy and varicose veins presents with 4 days of right flank pain, hematuria, dysuria and hesitancy. She feels like the urine is ?stuck? in her bladder and will not come out. She has had chills for the past couple of days but did not take a temperature. She denies past history of kidney stones, chest pain or pressure, palpitations, shortness of breath, abdominal distention, vaginal discharge, edema, weakness, and dizziness. MD elicited complaint: dysuria and flank pain Onset (ago): day(s) (4) Location of symptoms: suprapubic, low back and flank Severity: moderate Severity scale (1-10): 8 Quality of pain: burning Consistency: constant Vaginal discharge: none Vaginal bleeding: none Urinary symptoms: Dysuria, Urgency, Frequency, Hematuria, Difficulty Urinating and Flank Pain Exacerbating factors: urination Relieving factors: none Associated symptoms: chills and back pain Treatment prior to arrival: none Sexual activity: Yes Patient : No Possible : other (Tubal ligation) Related Data : 3 Para: 3 Total number of abortions (spontaneous and elective): 0 Home Medications Medication Instructions Recorded Confirmed diclofenac sodium 75 mg 75 mg PO DAILY 06/25/20 07/29/20 tablet,delayed release divalproex 500 mg tablet,delayed 500 mg PO BID 06/25/20 07/29/20 release Previous Rx's Medication Instructions Recorded buspirone 15 mg tablet 15 mg PO DAILY 30 Days #30 tab 11/11/20 venlafaxine 75 mg capsule,extended 75 mg PO DAILY 30 Days #30 cap 11/11/20 release 24 hr nitrofurantoin monohyd/m-cryst 100 mg PO Q12H 7 Days #14 cap 11/18/20 [Macrobid] prednisone 20 mg PO DAILY 5 Days #5 tab 11/18/20 tamsulosin [Flomax] 0.4 mg PO DAILY 14 Days #14 cap 11/18/20 Allergies Allergy/AdvReac Type Severity Reaction Status Date / Time aspirin [Aspirin] Allergy Severe RASH Verified 11/18/20 15:57 codeine [CODEINE] Allergy Severe ANAPHYLAXIS Verified 11/18/20 15:57 mayonnaise [MAYONNAISE] Allergy Mild UPSET Verified 11/18/20 15:57 STOMACH, RASH morphine [Morphine] Allergy Mild AGITATION/A Verified 11/18/20 15:57 NXIETY Penicillins Allergy Mild RASH Verified 11/18/20 15:57 cheese Allergy Unknown RASH Verified 11/18/20 15:57 latex [LATEX] Allergy Unknown RASH Verified 11/18/20 15:57 shrimp Allergy Shortness Verified 11/18/20 15:57 of Breath acetaminophen [From Tylenol] AdvReac Mild HEADACHES Verified 11/18/20 15:57 BUTTER FLAVOR Allergy Mild RASH, Uncoded 06/06/20 14:58 UPSET STOMACH Chocolate Allergy Mild UPSET Uncoded 06/06/20 14:58 STOMACH, RASH SPICY FOOD Allergy Mild UPSET Uncoded 06/06/20 14:58 STOMACH, RASH Review of Systems Review of Systems: Constitutional: No Fever, positive Chills ENT/Mouth: No sore throat Eyes: No Eye Pain, No Swelling, No Redness Cardiovascular: No Chest Pain, No SOB Respiratory: No Cough, No Sputum, No Wheezing Gastrointestinal: No Nausea, no Vomiting, No Diarrhea, positive abdominal pain Genitourinary: positive Dysuria, positive urinary frequency, positive Hematuria, positive Flank Pain, positive hesitancy Musculoskeletal: No joint pain, No Myalgias Skin: No Skin Lesions, No rash Neuro: No Weakness, No Numbness, No Headache Psych: No Anxiety/Panic, No Depression Heme/Lymph: No Bruising, No Lymphadenopathy Endocrine: No Polyuria, No Polydipsia Yes all other systems are reviewed and are negative [facility] Past Medical History Medical History Anxiety Asthma Chronic migraine Depression Epilepsy Surgical History History of tubal ligation : 3 Para: 3 Total number of abortions (spontaneous and elective): 0 Family History Family History Father Hypertension Stroke CVD (cardiovascular disease) Mother CVD (cardiovascular disease) Hypertension Brother No problems noted. Sister No problems noted. Son No problems noted. Daughter No problems noted. Daughter No problems noted. Social History Social History Alcohol intake: never Smoking Status: Never smoker Use of substances other than those prescribed or required for medical reasons: No Advance Directives: No Advance Directives Information Provided: Yes Physical Exam Vital Signs: Vital Signs: Last Vital Signs Temp 97.8 F 11/18/20 19:27 Pulse 83 11/18/20 20:00 Resp 15 11/18/20 20:00 BP 105/64 11/18/20 20:00 Pulse Ox 100 11/18/20 20:00 Body Mass Index 23.6 Appearance: Alert. Oriented X3. Moderate distress and anxiety. Afebrile Eyes: Pupils equal, round and reactive to light. EOMI, sclera nonicteric ENT: Pharynx normal. Moist mucous membranes Neck: Normal inspection. Neck supple. No JVD CVS: Normal heart rate and rhythm. Pulses normal. Respiratory: No respiratory distress. Lung sounds clear to auscultation all lobes Abdomen: Soft and tender to palpation to the right lower quadrant, bilateral CVA tenderness. Skin: Skin warm and dry. Normal skin color. Normal skin turgor. Extremities: No lower extremity edema. Neuro: No motor deficit. No sensory deficit. Cranial nerves 2-12 intact, gait well balanced well coordinated Course Course Course Narrative: 45-year-old female with past medical history of multiple allergies, anxiety, asthma, chronic migraines, depression, epilepsy and varicose veins presents with 4 days of right flank pain, hematuria, dysuria and hesitancy. Urinalysis is positive for UTI and heme, physical presentation is consistent with possible kidney stone. Plan of care is for CT scan of the abdomen. Will order lactic and cultures as she has been ill for several days, IV ceftriaxone and fluids ordered. CT scan shows bilateral renal stones without obstruction and constipation. Will give kidney stone treatment with prednisone, Flomax, and have follow-up with PCP as needed. She does have a history of kidney stones in the past. Macrobid for UTI. 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 Google translate utilized for discharge instructions. Patient verbalized understanding of and agrees plan of care discharge home. MDM - Female Genitourinary MDM Narrative Medical decision making narrative: Renal stones, pyelonephritis Differential Diagnosis Differential diagnosis: Likely urinary tract infection and cystitis Medical Records Attestation: I reviewed the patient's medical records. Lab Data Attestation: I reviewed the patient's lab results. Result diagrams: 11/18/20 16:12 11/18/20 16:12 Labs: Lab Results 11/18/20 11/18/20 11/18/20 Range/Units 16:12 16:12 16:12 WBC 14.4 H (4.8-10.8) X10*3/uL RBC 4.71 (4.20-5.50) X10*6/uL Hgb 13.6 (12.0-16.0) g/dl Hct 41.8 (37-47) % MCV 88.7 (80-98) fL MCH 28.9 (27.0-33.0) pg MCHC 32.5 (31.0-35.0) g/dl RDW 14.3 (11.0-16.0) % Plt Count 169 (160-400) X10*3/uL MPV 13.8 H (9.4-12.3) fL Immature Gran % (Auto) 0.3 (0.0-0.4) % Neut % (Auto) 72.9 (45-73) % Lymph % (Auto) 18.6 L (20-40) % [place] % (Auto) 7.6 (2-11) % Eos % (Auto) 0.1 (0-4) % Baso % (Auto) 0.5 (0-2) % Lymph # (Auto) 2.7 (1.2-4.9) X10*3/uL [place] # (Auto) 1.1 (0.1-1.2) X10*3/uL Eos # (Auto) 0.0 (0.0-0.4) X10*3/uL Baso # (Auto) 0.1 (0.0-0.2) X10*3/uL Abs Immat Gran (auto) 0.05 H (0.00-0.03) X10*3/uL Absolute Neuts (auto) 10.5 H (2.0-8.3) X10*3/uL Absolute Nucleated RBC 0.000 (0.0-0.012) X10*3/uL Nucleated RBC % (auto) 0.0 (0.0-0.2) /100WBC Hold Blue Top SEE NOTE Sodium (135-145) mmol/L Potassium (3.3-5.1) mmol/L Chloride (96-108) mmol/L Carbon Dioxide (22-29) mmol/L Anion Gap (12-20) BUN (9-16) mg/dL Creatinine (0.5-1.4) mg/dL Estim Creat Clear Calc Estimated GFR Random Glucose (60-115) mg/dL Lactic Acid (0.5-2.0) mmol/L Calcium (8.4-10.2) mg/dL Total Bilirubin (0.0-1.0) mg/dL AST (5-31) U/L ALT (0-31) U/L Alkaline Phosphatase (39-117) U/L Total Protein (6.5-8.0) g/dL Albumin (3.5-5.0) g/dL Urine Color STRAW Urine Appearance HAZY Urine pH 7.5 (5.0-8.0) Ur Specific [place] 1.010 (1.005-1.025) Urine Protein NEG (NEG-TRACE) MG/DL Urine Glucose (UA) NEG (NEG) MG/DL Urine Ketones NEG (NEG) MG/DL Urine Blood 3+ H (NEG) Urine Nitrite NEG (NEG) Ur Leukocyte Esterase 2+ H (NEG) Urine RBC TNTC H (0) /HPF Urine WBC 30-49 H (0-4) /HPF Ur Squamous Epith Cells 2+ /LPF Urine Bacteria 1+ /LPF 11/18/20 11/18/20 Range/Units 16:12 19:01 WBC (4.8-10.8) X10*3/uL RBC (4.20-5.50) X10*6/uL Hgb (12.0-16.0) g/dl Hct (37-47) % MCV (80-98) fL MCH (27.0-33.0) pg MCHC (31.0-35.0) g/dl RDW (11.0-16.0) % Plt Count (160-400) X10*3/uL MPV (9.4-12.3) fL Immature Gran % (Auto) (0.0-0.4) % Neut % (Auto) (45-73) % Lymph % (Auto) (20-40) % [place] % (Auto) (2-11) % Eos % (Auto) (0-4) % Baso % (Auto) (0-2) % Lymph # (Auto) (1.2-4.9) X10*3/uL [place] # (Auto) (0.1-1.2) X10*3/uL Eos # (Auto) (0.0-0.4) X10*3/uL Baso # (Auto) (0.0-0.2) X10*3/uL Abs Immat Gran (auto) (0.00-0.03) X10*3/uL Absolute Neuts (auto) (2.0-8.3) X10*3/uL Absolute Nucleated RBC (0.0-0.012) X10*3/uL Nucleated RBC % (auto) (0.0-0.2) /100WBC Hold Blue Top Sodium 140 (135-145) mmol/L Potassium 3.9 (3.3-5.1) mmol/L Chloride 104 (96-108) mmol/L Carbon Dioxide 29 (22-29) mmol/L Anion Gap 11 L (12-20) BUN 10 (9-16) mg/dL Creatinine 0.88 (0.5-1.4) mg/dL Estim Creat Clear Calc 61.5 Estimated GFR > 60 Random Glucose 72 (60-115) mg/dL Lactic Acid 0.9 (0.5-2.0) mmol/L Calcium 8.9 (8.4-10.2) mg/dL Total Bilirubin 0.4 (0.0-1.0) mg/dL AST 19 (5-31) U/L ALT 14 (0-31) U/L Alkaline Phosphatase 79 (39-117) U/L Total Protein 7.9 (6.5-8.0) g/dL Albumin 4.4 (3.5-5.0) g/dL Urine Color Urine Appearance Urine pH (5.0-8.0) Ur Specific [place] (1.005-1.025) Urine Protein (NEG-TRACE) MG/DL Urine Glucose (UA) (NEG) MG/DL Urine Ketones (NEG) MG/DL Urine Blood (NEG) Urine Nitrite (NEG) Ur Leukocyte Esterase (NEG) Urine RBC (0) /HPF Urine WBC (0-4) /HPF Ur Squamous Epith Cells /LPF Urine Bacteria /LPF Imaging Data CT scan - abdomen: Attestation: I personally reviewed and interpreted this imaging study as follows: Radiologist's impression: EXAMINATION: CT ABDOMEN AND PELVIS WITHOUT CONTRAST CLINICAL INFORMATION: Right flank pain. Hematuria. Urinary retention COMPARISON: CT scan abdomen pelvis 10/06/2017 TECHNIQUE: Multidetector volumetric imaging was performed from the superior aspect of the liver through the pubic symphysis. Sagittal and coronal reformatted images were obtained on the technologist's workstation. This CT examination was performed using dose optimization techniques as appropriate, variously including the following: *Automated exposure control *Adjustment of mA and/or kV according to patient size (this includes techniques or standardized protocols for targeted exams where dose is matched to indication/reason for exam; i.e. extremities or head) *Use of iterative reconstruction technique DLP: 273 mGy-cm FINDINGS: LUNG BASES: The visualized lung bases are unremarkable. LIVER, GALLBLADDER, AND BILIARY TREE: The liver is normal in size, shape, and attenuation. No focal hepatic lesion or biliary ductal dilatation is present. Status post cholecystectomy. PANCREAS: Unremarkable. SPLEEN: Unremarkable. ADRENAL GLANDS: Unremarkable. KIDNEYS AND URETERS: There are several less than 1 mm size stones in the lower pole the right kidney. Axial image [id number] sequence 4. In the midpole left kidney there is a 1 mm stone axial image [id number] There are no ureteral calculi. There is no hydronephrosis. (There is a calcified phlebolith in the lower left pelvis, image [id number]) BLADDER: Unremarkable. GASTROINTESTINAL TRACT: No acute abnormality. No significant diverticula. There is no bowel wall thickening /edema. There is no bowel obstruction. There is a large volume of stool throughout the colon. The appendix is normal . The small bowel loops are unremarkable. The stomach is normal. There is no hiatal hernia. ABDOMINAL WALL: No significant hernia is appreciated. LYMPH NODES: Normal. VASCULAR: Unremarkable. PELVIC VISCERA: Unremarkable. OSSEOUS STRUCTURES: Unremarkable. CT/CT abdomen pelvis wo con IMPRESSION: 1. There are a few tiny stones in both the right and left kidneys. No ureteral calculi or hydronephrosis. The bladder is unremarkable. 2. There is a large volume of stool in the colon. No acute abnormality of the bowel. The appendix is normal. Discharge Plan Discharge Clinical Impression: Urinary tract infection, Bilateral kidney stones Patient Disposition: Home, Self-Care Instructions: Kidney Stones (ED), Urinary Tract Infection in Women (ED) Additional Instructions: Te evaluaron para detectar dolor en el flanco derecho y s?ntomas urinarios. La tomograf?a computarizada del abdomen muestra c?lculos renales bilaterales sin obstrucci?n ni lesi?n renal. La miclisis es positiva para la UTI. Por favor, tome el antibi?magnolia Macrobid dos veces al d?a elan 7 d?as seg?n las instrucciones. Eun muchos l?quidos. Por favor, tome Flomax y prednisona para el manejo de c?lculos renales. Usted puede considerar el seguimiento con Urolog?a si el dolor persiste. [place] por elegir nila departamento de emergencias para banegas evaluaci?n. Por favor, brijesh un seguimiento con el m?dico de atenci?n primaria seg?n sea necesario. Regrese al servicio de emergencias para cualquier s?ntoma nuevo, preocupante o que empeore. You were evaluated for right flank pain and urinary symptoms. CT scan of the abdomen shows bilateral kidney stones without obstruction or kidney injury. Urinalysis is positive for UTI. Please take Macrobid antibiotic twice a day for 7 days as directed. Drink plenty of fluids. Please take Flomax and prednisone for kidney stone management. You may consider following up with Urology if pain persists. Thank you for choosing this emergency department for evaluation. Please follow-up with primary care physician as needed. Return to the emergency department for any new, concerning, or worsening symptoms. Prescriptions: New prednisone 20 mg tablet 20 mg PO DAILY 5 Days Qty: 5 RF: 0 tamsulosin [Flomax] 0.4 mg capsule 0.4 mg PO DAILY 14 Days Qty: 14 RF: 0 nitrofurantoin monohyd/m-cryst [Macrobid] 100 mg capsule 100 mg PO Q12H 7 Days Qty: 14 RF: 0 No Action buspirone 15 mg tablet 15 mg PO DAILY 30 Days Qty: 30 RF: 1 venlafaxine 75 mg capsule,extended release 24hr 75 mg PO DAILY 30 Days Qty: 30 RF: 1 divalproex 500 mg tablet,delayed release (DR/EC) 500 mg PO BID RF: 0 diclofenac sodium 75 mg tablet,delayed release (DR/EC) 75 mg PO DAILY RF: 0 Interventions: ED Discharge Assessment Last Done: 11/18/20 21:48 Discharge Date/Time: 11/18/20 21:48
[2020-11-18 19:22] LABS: Lactic Acid 0.9 mmol/L (0.5-2.0)
[2020-11-18] MEDS: diphenhydrAMINE HCL 50 MG/ML VIAL 25 MG IVPUSH (19:24)
[2020-11-18] MEDS: 0.9 % Sodium Chloride 1,000 ML 999 ML IVCONT (19:25)
[2020-11-18] MEDS: cefTRIAXone sodium 1 GM in 0.9 % Sodium Chloride 50 ML IV (19:26)
[2020-11-18 19:27] VITALS: BP 112/71; PULSE 85; RESP 16; TEMP 36.6; O2SAT 100
[2020-11-18 20:00] VITALS: BP 105/64; PULSE 83; RESP 15; O2SAT 100
[2020-11-18] MEDS: Divalproex Sodium 500 MG TABLET.DR PO (20:12)
[2020-11-18] MEDS: LORazepam 0.5 MG TABLET PO (20:12)
[2020-11-18] MEDS: predniSONE 20 MG TABLET PO (21:05)
[2020-11-18] MEDS: Tamsulosin HCL 0.4 MG CAPSULE PO (21:05)
== END 2020-11-18 21:48 | disposition home or self-care (01) ==
PROVIDERS: Nurse Practitioner Family; Emergency Provider Emergency Medicine; PCP Internal Medicine
DX: N20.0 Calculus of kidney (principal); N39.0 Urinary tract infection, site not specified; J45.909 Unspecified asthma, uncomplicated; Z90.49 Acquired absence of other specified parts of digestive tract
CPT/HCPCS: 36415; 74176; 80053; 81001; 81003; 83605; 85025; 87040; 87086; 96361; 96365; 96374; 99284; J0696; J1200

== ENCOUNTER 2021-06-15 23:08 | Emergency (ER) | payer OTHER, SELFPAY ==
[2021-06-15 23:21] VITALS: BP 116/80; PULSE 83; RESP 18; TEMP 37; O2SAT 99; BMI 24.5
--- NOTE | 2021-06-15 23:59 | ED_ITS ---
HPI - Abdominal Pain General Chief Complaint: Abdominal Pain Stated Complaint: Abd pain Time Seen by Provider: 06/15/21 23:59 Source: patient Mode of arrival: ambulatory Limitations: no limitations History of Present Illness HPI narrative: Patient history of nonobstructive kidney stone complaining of pain bilateral flank and bilateral lower abdomen it is since early today no nausea no vomiting pain get worse when she moves history of constipation last bowel movement was 2 days ago no fever no chills no diarrhea no abdominal bloating this no hematuria no blood in the stool no dysuria no frequency Related Data Home Medications Medication Instructions Recorded Confirmed divalproex 500 mg tablet,delayed 500 mg PO BID 06/25/20 01/21/21 release lorazepam 0.5 mg tablet 0.5 mg PO TID PRN 01/01/21 01/21/21 Previous Rx's Medication Instructions Recorded tamsulosin 0.4 mg capsule (Flomax) 0.4 mg PO DAILY 14 Days #14 cap 11/18/20 albuterol sulfate 90 mcg/actuation 2 puff INHALATION Q6H PRN 30 Days 01/01/21 aerosol inhaler #8.5 g buspirone 15 mg tablet 15 mg PO DAILY 30 Days #30 tab 04/25/21 venlafaxine 75 mg capsule,extended 75 mg PO DAILY 30 Days #30 cap 04/25/21 release 24 hr cyclobenzaprine 10 mg tablet 10 mg PO Q8H #20 tab 06/16/21 ibuprofen 600 mg tablet 600 mg PO Q6H PRN #20 tab 06/16/21 Allergies Allergy/AdvReac Type Severity Reaction Status Date / Time aspirin [Aspirin] Allergy Severe RASH Verified 01/21/21 11:52 codeine [CODEINE] Allergy Severe ANAPHYLAXIS Verified 01/21/21 11:52 mayonnaise [MAYONNAISE] Allergy Mild UPSET Verified 01/21/21 11:52 STOMACH, RASH morphine [Morphine] Allergy Mild AGITATION/A Verified 01/21/21 11:52 NXIETY Penicillins Allergy Mild RASH Verified 01/21/21 11:52 cheese Allergy Unknown RASH Verified 01/21/21 11:52 latex [LATEX] Allergy Unknown RASH Verified 01/21/21 11:52 shrimp Allergy Shortness Verified 01/21/21 11:52 of Breath acetaminophen [From Tylenol] AdvReac Mild HEADACHES Verified 01/21/21 11:52 BUTTER FLAVOR Allergy Mild RASH, Uncoded 01/21/21 11:52 UPSET STOMACH Chocolate Allergy Mild UPSET Uncoded 01/21/21 11:52 STOMACH, RASH SPICY FOOD Allergy Mild UPSET Uncoded 01/21/21 11:52 STOMACH, RASH Review of Systems Review of Systems Yes all other systems are reviewed and are negative Physical Exam Vital Signs: Vital Signs: Last Vital Signs Temp 98.6 F 06/15/21 23:21 Pulse 83 06/15/21 23:21 Resp 18 06/15/21 23:21 BP 116/80 06/15/21 23:21 Pulse Ox 99 06/15/21 23:21 Body Mass Index 24.5 Appearance: Alert. Oriented X3. No acute distress. Eyes: No pallor or icterus ENT: Pharynx normal. Oral Mucosa moist Neck: Normal inspection. Neck supple. CVS: Normal heart rate and rhythm. Pulses normal. Respiratory: No respiratory distress. Equal air entry bilateral, no wheezing/rales/rhonchi Abdomen: Soft , mild diffuse tenderness in lower abdomen no rebound or guarding Bowel sounds are present, no mass palpable, no CVA tenderness, musculartenderness bilateral lower back Skin: Skin warm and dry. Normal skin color. Normal skin turgor. Extremities: No lower extremity edema. No calf tenderness Neuro: Oriented X 3. MDM - Abdominal Pain MDM Narrative Medical decision making narrative: Patient pain likely musculoskeletal no signs of infection no signs of acute abdomen discharge patient home on ibuprofen and Flexeril Lab Data Attestation: I reviewed the patient's lab results. Labs: Lab Results 06/16/21 06/16/21 Range/Units 00:02 00:02 Urine Color YELLOW Urine Appearance CLEAR Urine pH 5.5 (5.0-8.0) Ur Specific [place] 1.015 (1.005-1.025) Urine Protein NEG (NEG-TRACE) MG/DL Urine Glucose (UA) NEG (NEG) MG/DL Urine Ketones NEG (NEG) MG/DL Urine Blood TRACE (NEG) Urine Nitrite NEG (NEG) Ur Leukocyte Esterase NEG (NEG) Urine RBC 0-2 (0) /HPF Urine WBC 0-2 (0-4) /HPF Ur Squamous Epith Cells 3+ /LPF Urine Bacteria TRACE /LPF Urine Mucus TRACE /LPF Urine Test NEGATIVE (NEGATIVE) Discharge Plan Discharge Clinical Impression: Back pain Qualifiers: Back pain location: low back pain Chronicity: acute Back pain laterality: bilateral Sciatica presence: without sciatica Qualified Code(s): M54.5 - Low back pain Abdominal pain Qualifiers: Abdominal location: generalized Qualified Code(s): R10.84 - Generalized abdominal pain Patient Disposition: Home, Self-Care Instructions: Abdominal Pain (ED), Back Pain (ED) Additional Instructions: Drink plenty of fluids Pain medication as advised Report to the ER if vomiting/ increased pain Prescriptions: New cyclobenzaprine 10 mg tablet 10 mg PO Q8H Qty: 20 RF: 0 ibuprofen 600 mg tablet 600 mg PO Q6H PRN (Reason: pain) Qty: 20 RF: 0 No Action buspirone 15 mg tablet 15 mg PO DAILY 30 Days Qty: 30 RF: 1 venlafaxine 75 mg capsule,extended release 24hr 75 mg PO DAILY 30 Days Qty: 30 RF: 1 tamsulosin [Flomax] 0.4 mg capsule 0.4 mg PO DAILY 14 Days Qty: 14 RF: 0 lorazepam 0.5 mg tablet 0.5 mg PO TID PRNRF: 0 albuterol sulfate 90 mcg/actuation HFA aerosol inhaler 2 puff inhalation Q6H PRN (Reason: shortness of breath or wheezing) 30 Days Qty: 8.5 RF: 3 divalproex 500 mg tablet,delayed release (DR/EC) 500 mg PO BID RF: 0 Interventions: ED Discharge Assessment Last Done: 06/16/21 00:28 Discharge Date/Time: 06/16/21 00:29 [facility] Past Medical History Medical History Anxiety Asthma Chronic migraine Depression Encounter for Medicare annual wellness exam Epilepsy Nephrolithiasis Surgical History History of tubal ligation Family History Family History Father Hypertension Stroke CVD (cardiovascular disease) Mother CVD (cardiovascular disease) Hypertension Brother No problems noted. Sister No problems noted. Son No problems noted. Daughter No problems noted. Daughter No problems noted. Social History Social History Alcohol intake: never Advance Directives: No Patient : No
[2021-06-16 00:07] LABS: Appearance Urine CLEAR; Color Urine YELLOW; Glucose Urine UA NEG (NEG); Leukocyte Esterase Urine NEG (NEG); Nitrite Urine NEG (NEG); PH 5.5 (5.0-8.0); Specific Gravity - Urine 1.015 (1.005-1.025); UACC Culture Trigger NO; Urine Blood TRACE (NEG); Urine Ketones NEG (NEG); Urine Protein NEG (NEG-TRACE)
[2021-06-16 00:09] LABS: UPreg QC Valid YES; Urine Pregnancy NEGATIVE (NEGATIVE)
[2021-06-16 00:13] LABS: Bacteria Urine TRACE /LPF; Mucus Urine TRACE /LPF; RBC Urine 0-2 /HPF (0); Squamous Epithelial Cell Urine 3+ /LPF; WBC Urine 0-2 /HPF (0-4)
[2021-06-16] MEDS: Ibuprofen 600 MG TABLET PO (00:28)
[2021-06-16] MEDS: Cyclobenzaprine HCl 10 MG TABLET PO (00:28)
== END 2021-06-16 00:29 | disposition home or self-care (01) ==
PROVIDERS: Emergency Provider Internal Medicine; PCP Internal Medicine
DX: R10.32 Left lower quadrant pain (principal); R10.31 Right lower quadrant pain; M54.5 Low back pain; G40.909 Epilepsy, unspecified, not intractable, without status epilepticus; F41.9 Anxiety disorder, unspecified; Z87.442 Personal history of urinary calculi; Z79.899 Other long term (current) drug therapy
CPT/HCPCS: 81001; 81025; 99283; 99284

== ENCOUNTER 2021-07-08 08:44 | Outpatient (REF) | payer OTHER, SELFPAY ==
[2021-07-08 10:29] LABS: Valproate 162.2 mcg/mL (50.0-100.0)
== END 2021-07-08 08:45 | disposition home or self-care (01) ==
LOC: HO.LAB 08:44
PROVIDERS: PCP Internal Medicine; Visit Provider Psychiatry & Neurology Neurology
DX: G40.909 Epilepsy, unspecified, not intractable, without status epilepticus (principal)
CPT/HCPCS: 36415; 80164

== ENCOUNTER 2021-08-31 06:46 | Emergency (ER) | payer OTHER, SELFPAY ==
[2021-08-31 07:15] VITALS: BP 109/72; PULSE 98; RESP 18; TEMP 36.9; O2SAT 97; BMI 24.5
[2021-08-31 07:35] LABS: Appearance Urine CLOUDY; Color Urine BROWN; Glucose Urine UA NEG (NEG); Leukocyte Esterase Urine 2+ (NEG); Nitrite Urine POS (NEG); PH 5.5 (5.0-8.0); Specific Gravity - Urine >= 1.030 (1.005-1.025); UACC Culture Trigger YES; Urine Blood 3+ (NEG); Urine Ketones 5 MG/DL (NEG); Urine Protein 2+ MG/DL (NEG-TRACE)
[2021-08-31 07:39] LABS: UPreg QC Valid YES; Urine Pregnancy NEGATIVE (NEGATIVE)
[2021-08-31 07:46] LABS: RBC Urine TNTC /HPF (0); WBC Urine 50-75 /HPF (0-4)
[2021-08-31 07:47] LABS: Bacteria Urine TRACE /LPF; Squamous Epithelial Cell Urine 1+ /LPF
[2021-08-31 07:48] LABS: Mucus Urine 1+ /LPF
[2021-08-31 07:49] LABS: Renal Epithelial Cells Urine TRACE /LPF
--- NOTE | 2021-08-31 08:10 | ED_ITS ---
HPI - Female Genitourinary General Chief complaint: Urogenital-Female Stated complaint: BLOOD IN URINE LOWER ABD PAIN Time Seen by Provider: 08/31/21 08:02 Source: patient Mode of arrival: ambulatory Limitations: no limitations History of Present Illness HPI Narrative: 46-year-old female presents to the ER with acute onset of dysuria, urinary frequency and hematuria the started at 04:00 today. She has a history of urinary tract infection in the past and feels this is similar. She has never had blood in her urine before though. She has no fevers, chills, vomiting, back pain. She has some suprapubic pain, but her biggest complaint is dysuria at the end of her urinary stream. She denies chance of . No vaginal discharge or bleeding. MD elicited complaint: dysuria and UTI Pertinent past history: recurrent UTIs Onset (ago): hour(s) (4) Location of symptoms: suprapubic Severity: moderate Female Urogenital Radiation: Suprapubic Quality of pain: burning Consistency: intermittent Vaginal discharge: none Vaginal bleeding: none Urinary symptoms: Dysuria, Frequency and Hematuria Exacerbating factors: urination and palpation Relieving factors: none Associated symptoms: denies other symptoms Treatment prior to arrival: none Sexual activity: No Patient : No Related Data Home Medications Medication Instructions Recorded Confirmed divalproex 500 mg tablet,delayed 500 mg PO BID 06/25/20 06/19/21 release lorazepam 0.5 mg tablet 0.5 mg PO TID PRN 01/01/21 06/19/21 cyclobenzaprine 10 mg tablet 10 mg PO BEDTIME 06/19/21 06/19/21 ibuprofen 600 mg tablet 600 mg PO Q8H PRN 06/19/21 06/19/21 Previous Rx's Medication Instructions Recorded albuterol sulfate 90 mcg/actuation 2 puff INHALATION Q6H PRN 30 Days 01/01/21 aerosol inhaler #8.5 g buspirone 15 mg tablet 15 mg PO DAILY 30 Days #30 tab 04/25/21 venlafaxine 75 mg capsule,extended 75 mg PO DAILY 30 Days #30 cap 04/25/21 release 24 hr cyclobenzaprine 10 mg tablet 10 mg PO Q8H #20 tab 06/16/21 ibuprofen 600 mg tablet 600 mg PO Q6H PRN #20 tab 06/16/21 levofloxacin 250 mg tablet 250 mg PO DAILY #5 tab 08/31/21 phenazopyridine 100 mg tablet 100 mg PO TID PRN #6 tab 08/31/21 (Pyridium) Allergies Allergy/AdvReac Type Severity Reaction Status Date / Time aspirin [Aspirin] Allergy Severe RASH Verified 06/19/21 09:53 codeine [CODEINE] Allergy Severe ANAPHYLAXIS Verified 06/19/21 09:53 mayonnaise [MAYONNAISE] Allergy Mild UPSET Verified 06/19/21 09:53 STOMACH, RASH morphine [Morphine] Allergy Mild AGITATION/A Verified 06/19/21 09:53 NXIETY Penicillins Allergy Mild RASH Verified 06/19/21 09:53 cheese Allergy Unknown RASH Verified 06/19/21 09:53 latex [LATEX] Allergy Unknown RASH Verified 06/19/21 09:53 shrimp Allergy Shortness Verified 06/19/21 09:53 of Breath acetaminophen [From Tylenol] AdvReac Mild HEADACHES Verified 06/19/21 09:53 BUTTER FLAVOR Allergy Mild RASH, Uncoded 06/19/21 09:53 UPSET STOMACH Chocolate Allergy Mild UPSET Uncoded 06/19/21 09:53 STOMACH, RASH SPICY FOOD Allergy Mild UPSET Uncoded 06/19/21 09:53 STOMACH, RASH Review of Systems Review of Systems: Constitutional: No Fever, No Chills ENT/Mouth: No sore throat Cardiovascular: No Chest Pain, No SOB Respiratory: No Cough, No Sputum Gastrointestinal: No Nausea, No Vomiting, No Diarrhea, No abdominal Pain Genitourinary: + Dysuria, + Urinary Frequency, + Hematuria Musculoskeletal: No joint pain, No Myalgias Skin: No Skin Lesions, No rash Neuro: No Dizziness, No Headache Heme/Lymph: No Lymphadenopathy Endocrine: No Polyuria, No Polydipsia [facility] Past Medical History Medical History (Updated 08/31/21 @ 09:09 by IFEANYI Umanzor) Anxiety Asthma Chronic migraine Depression Encounter for Medicare annual wellness exam Epilepsy Nephrolithiasis Pelvic pain in female Surgical History History of tubal ligation Family History Family History Father Hypertension Stroke CVD (cardiovascular disease) Mother CVD (cardiovascular disease) Hypertension Brother No problems noted. Sister No problems noted. Son No problems noted. Daughter No problems noted. Daughter No problems noted. Social History Social History Housing: Apartment Alcohol intake: never Patient Tobacco Use Status: Never used Tobacco e-Cigarette/Vaping Use: Never Used Second Hand Smoke Exposure: No Use of substances other than those prescribed or required for medical reasons: No Advance Directives: No Advance Directives Information Provided: Yes service: No Current occupational status: disabled Physical Exam Vital Signs: Vital Signs: Last Vital Signs Temp 98.4 F 08/31/21 07:15 Pulse 98 08/31/21 07:15 Resp 18 08/31/21 07:15 BP 109/72 08/31/21 07:15 Pulse Ox 97 08/31/21 07:15 BMI result Body Mass Index 24.5 Appearance: Alert. Oriented X3. No acute distress. Eyes: Pupils equal, round and reactive to light. ENT: Pharynx normal. Neck: Normal inspection. Neck supple. CVS: Normal heart rate and rhythm. Pulses normal. Respiratory: No respiratory distress. Breath sounds normal. Abdomen: Soft with mild suprapubic tenderness, no rebound or guarding. +BS x4. Pelvic deferred Skin: Skin warm and dry. Normal skin color. Normal skin turgor. No rashes. Extremities: No lower Grossly normal, nonfocal Course Course Course Narrative: 46-year-old female presents to the ER with urinary frequency, urinary hesitancy. dysuria and hematuria to the start of 04:00 today. Vital signs are normal on arrival. She has no CVA tenderness. Her urinalysis is positive for infection with hematuria. Will start on p.o. Levaquin and Pyridium for her symptoms. Reports hx UTIs.Upon review urine cx from November 2020 with 10- 50K mixed bacterial [place]. Encouraged increase her p.o. fluid intake follow-up with her doctor as needed. Stable for discharge home. MDM - Female Genitourinary Lab Data Labs: Lab Results 08/31/21 08/31/21 Range/Units 07:25 07:25 Urine Color BROWN Urine Appearance CLOUDY Urine pH 5.5 (5.0-8.0) Ur Specific [place] >= 1.030 H (1.005-1.025) Urine Protein 2+ H (NEG-TRACE) MG/DL Urine Glucose (UA) NEG (NEG) MG/DL Urine Ketones 5 (NEG) MG/DL Urine Blood 3+ H (NEG) Urine Nitrite POS H (NEG) Ur Leukocyte Esterase 2+ H (NEG) Urine RBC TNTC H (0) /HPF Urine WBC 50-75 H (0-4) /HPF Ur Squamous Epith Cells 1+ /LPF Ur Renal Epithelial Cell TRACE /LPF Urine Bacteria TRACE /LPF Urine Mucus 1+ /LPF Urine Test NEGATIVE (NEGATIVE) Critical Care Time Critical Care Time Critical Care Time: No Discharge Plan Discharge Clinical Impression: Urinary tract infection Patient Disposition: Home, Self-Care Instructions: Urinary Tract Infection in Women (ED) Additional Instructions: Your urine test showed infection Take the prescribed antibiotic as directed - start tomorrow as you were given 1st dose today in the ER Take pyridium as needed for bladder pain - this will turn your urine orange color and it is a normal side effect Increase your fluid intake, drink plenty of water If you develop new or worsening symptoms call 911 or come back to the ER for further evaluation. Prescriptions: New levofloxacin 250 mg tablet 250 mg PO DAILY Qty: 5 RF: 0 phenazopyridine [Pyridium] 100 mg tablet 100 mg PO TID PRN (Reason: pain) Qty: 6 RF: 0 No Action buspirone 15 mg tablet 15 mg PO DAILY 30 Days Qty: 30 RF: 1 venlafaxine 75 mg capsule,extended release 24hr 75 mg PO DAILY 30 Days Qty: 30 RF: 1 cyclobenzaprine 10 mg tablet 10 mg PO Q8H Qty: 20 RF: 0 ibuprofen 600 mg tablet 600 mg PO Q6H PRN (Reason: pain) Qty: 20 RF: 0 lorazepam 0.5 mg tablet 0.5 mg PO TID PRNRF: 0 albuterol sulfate 90 mcg/actuation HFA aerosol inhaler 2 puff inhalation Q6H PRN (Reason: shortness of breath or wheezing) 30 Days Qty: 8.5 RF: 3 cyclobenzaprine 10 mg tablet 10 mg PO BEDTIME RF: 0 ibuprofen 600 mg tablet 600 mg PO Q8H PRNRF: 0 divalproex 500 mg tablet,delayed release (DR/EC) 500 mg PO BID RF: 0 Interventions: ED Discharge Assessment Last Done: 12/12/21 08:22 Discharge Date/Time: 08/31/21 08:22
[2021-08-31] MEDS: levoFLOXacin 500 MG TABLET PO (08:20)
[2021-08-31] MEDS: Phenazopyridine HCL 100 MG TABLET PO (08:20)
== END 2021-08-31 08:22 | disposition home or self-care (01) ==
PROVIDERS: Emergency Provider Emergency Medicine; PCP Internal Medicine
DX: N39.0 Urinary tract infection, site not specified (principal); R31.9 Hematuria, unspecified; Z87.440 Personal history of urinary (tract) infections
CPT/HCPCS: 81001; 81025; 87086; 87088; 87186; 99283; 99284

== ENCOUNTER 2021-11-16 17:56 | Emergency (ER) | payer OTHER, SELFPAY ==
[2021-11-16 18:07] VITALS: BP 116/77; PULSE 91; RESP 18; TEMP 36.6; O2SAT 100; BMI 24.7
[2021-11-16 18:17] LABS: Appearance Urine CLOUDY; Color Urine RED; Glucose Urine UA NEG (NEG); Leukocyte Esterase Urine 2+ (NEG); Nitrite Urine POS (NEG); PH 5.5 (5.0-8.0); Specific Gravity - Urine >= 1.030 (1.005-1.025); UACC Culture Trigger YES; Urine Blood 3+ (NEG); Urine Ketones 15 MG/DL (NEG); Urine Protein 3+ MG/DL (NEG-TRACE)
[2021-11-16 18:23] LABS: Squamous Epithelial Cell Urine TRACE /LPF
[2021-11-16 18:25] LABS: Bacteria Urine 1+ /LPF; RBC Urine TNTC /HPF (0)
[2021-11-16 18:26] LABS: WBC Urine TNTC /HPF (0-4)
--- NOTE | 2021-11-16 18:47 | ED_ITS ---
HPI - Female Genitourinary General Chief complaint: Urogenital-Female Stated complaint: blood in urine Time Seen by Provider: 11/16/21 18:32 Source: patient Mode of arrival: ambulatory History of Present Illness HPI Narrative: 46-year-old female with a PMHx asthma, anxiety, depression, epilepsy, recurrent UTIs, renal stones, presenting to the ED complaining of dysuria, urinary frequency, and gross hematuria x a few days. Admits symptoms feel similar to prior UTIs in the past. Reports suprapubic pressure. Denies fever, chills, nausea, vomiting, abdominal pain, flank pain MD elicited complaint: dysuria and UTI Related Data Home Medications Medication Instructions Recorded Confirmed divalproex 500 mg tablet,delayed 500 mg PO BID 06/25/20 06/19/21 release lorazepam 0.5 mg tablet 0.5 mg PO TID PRN 01/01/21 06/19/21 cyclobenzaprine 10 mg tablet 10 mg PO BEDTIME 06/19/21 06/19/21 ibuprofen 600 mg tablet 600 mg PO Q8H PRN 06/19/21 06/19/21 Previous Rx's Medication Instructions Recorded albuterol sulfate 90 mcg/actuation 2 puff INHALATION Q6H PRN 30 Days 01/01/21 aerosol inhaler #8.5 g buspirone 15 mg tablet 15 mg PO DAILY 30 Days #30 tab 04/25/21 venlafaxine 75 mg capsule,extended 75 mg PO DAILY 30 Days #30 cap 04/25/21 release 24 hr cyclobenzaprine 10 mg tablet 10 mg PO Q8H #20 tab 06/16/21 ibuprofen 600 mg tablet 600 mg PO Q6H PRN #20 tab 06/16/21 levofloxacin 250 mg tablet 250 mg PO DAILY #5 tab 08/31/21 phenazopyridine 100 mg tablet 100 mg PO TID PRN #6 tab 08/31/21 (Pyridium) cefuroxime axetil 250 mg tablet 250 mg PO BID 7 Days #14 tab 11/16/21 phenazopyridine 200 mg tablet 200 mg PO TID PRN #6 tab 11/16/21 (Pyridium) Allergies Allergy/AdvReac Type Severity Reaction Status Date / Time aspirin [Aspirin] Allergy Severe RASH Verified 11/16/21 18:07 codeine [CODEINE] Allergy Severe ANAPHYLAXIS Verified 11/16/21 18:07 mayonnaise [MAYONNAISE] Allergy Mild UPSET Verified 11/16/21 18:07 STOMACH, RASH morphine [Morphine] Allergy Mild AGITATION/A Verified 11/16/21 18:07 NXIETY Penicillins Allergy Mild RASH Verified 11/16/21 18:07 cheese Allergy Unknown RASH Verified 11/16/21 18:07 latex [LATEX] Allergy Unknown RASH Verified 11/16/21 18:07 shrimp Allergy Shortness Verified 11/16/21 18:07 of Breath acetaminophen [From Tylenol] AdvReac Mild HEADACHES Verified 11/16/21 18:07 BUTTER FLAVOR Allergy Mild RASH, Uncoded 06/19/21 09:53 UPSET STOMACH Chocolate Allergy Mild UPSET Uncoded 06/19/21 09:53 STOMACH, RASH SPICY FOOD Allergy Mild UPSET Uncoded 06/19/21 09:53 STOMACH, RASH Review of Systems Review of Systems: Constitutional: No Fever, No Chills, No Fatigue, No Malaise ENT/Mouth: No Ear Pain, No Nasal Congestion, No sore throat, No Rhinorrhea Eyes: No Eye Pain, No Swelling, No Redness Cardiovascular: No Chest Pain, No SOB, No Edema, No Palpitations Respiratory: No Cough, No Sputum, No Dyspnea Gastrointestinal: No Nausea, No Vomiting, No Diarrhea, No Constipation, No Abdominal pain Genitourinary: + Dysuria, + Urinary Frequency, + Hematuria, No Urinary Incontinence, No Urgency, No Flank Pain, No Urinary Flow Changes, No Hesitancy Musculoskeletal: No joint pain, No Myalgias, No Joint Swelling Skin: No Skin Lesions, No rash Neuro: No Weakness, No Headache Yes all other systems are reviewed and are negative [facility] Past Medical History Attestation statement: The following information was validated with the patient. Medical History Anxiety Asthma Chronic migraine Depression Encounter for Medicare annual wellness exam Epilepsy Nephrolithiasis Pelvic pain in female UTI (urinary tract infection) Surgical History History of tubal ligation Family History Family History Father Hypertension Stroke CVD (cardiovascular disease) Mother CVD (cardiovascular disease) Hypertension Brother No problems noted. Sister No problems noted. Son No problems noted. Daughter No problems noted. Daughter No problems noted. Social History Social History Housing: Apartment Alcohol intake: never Patient Tobacco Use Status: Never used Tobacco e-Cigarette/Vaping Use: Never Used Second Hand Smoke Exposure: No Advance Directives: No Advance Directives Information Provided: No Patient : No service: No Current occupational status: disabled Physical Exam Vital Signs: Vital Signs: Last Vital Signs Temp 97.8 F 11/16/21 18:07 Pulse 91 11/16/21 18:07 Resp 18 11/16/21 18:07 BP 116/77 11/16/21 18:07 Pulse Ox 100 11/16/21 18:07 BMI result Body Mass Index 24.7 Const: General: cooperative, healthy appearing, no acute distress, well developed, alert, awake and Physically active Orientation/consciousness: patient oriented x3 Limitations: no limitations HENMT: Head: Yes normal to inspection Ears: hearing grossly normal bilaterally General nose exam: Normal external nose present Face and sinus: Yes normal facial exam Eyes: General: appearance normal, both eyes and all related structures EOM: EOMs intact bilaterally Neck: Neck: Yes normal visual inspection and Yes no meningeal signs Resp: Effort & Inspection: normal respiratory effort Auscultation: clear to auscultation bilaterally Cardio: Rate: regular rate Heart sounds: S1 normal heart sound present and S2 normal heart sound present GI: Inspection: Yes normal to inspection Palpation (GI): Soft to palpation, nontender, no guarding and not rigid : General: Yes no CVA tenderness Back/Spine/Pelvis: Back: no CVA tenderness Skin: Rashes: no rashes Wounds: no wounds Neuro: General: patient oriented x3 and no meningeal signs Gait exam (Neuro): Normal gait present Extrem: General: Yes normal to inspection Course Course Course Narrative: -UA with blood, nitrite positive, leuk esterase positive, TNTC wbc's consistent with UTI. Patient given 1st dose of Ceftin and pyridium in the ED MDM - Female Genitourinary MDM Narrative Medical decision making narrative: 46-year-old female with a PMHx asthma, anxiety, depression, epilepsy, recurrent UTIs, renal stones, presenting to the ED complaining of dysuria, urinary frequency, and gross hematuria x a few days. On exam vital signs stable, NAD/nontoxic appearing, abdomen soft-nontender, no CVAT. Concern for UTI. Unlikely renal stone or pyelo without CVAT Plan: UA Medical Records Attestation: I reviewed the patient's medical records. Lab Data Attestation: I reviewed the patient's lab results. Labs: Lab Results 11/16/21 Range/Units 18:10 Urine Color RED A Urine Appearance CLOUDY Urine pH 5.5 (5.0-8.0) Ur Specific [place] >= 1.030 H (1.005-1.025) Urine Protein 3+ H (NEG-TRACE) MG/DL Urine Glucose (UA) NEG (NEG) MG/DL Urine Ketones 15 (NEG) MG/DL Urine Blood 3+ H (NEG) Urine Nitrite POS H (NEG) Ur Leukocyte Esterase 2+ H (NEG) Urine RBC TNTC H (0) /HPF Urine WBC TNTC H (0-4) /HPF Ur Squamous Epith Cells TRACE /LPF Urine Bacteria 1+ /LPF Discharge Plan Discharge Clinical Impression: UTI (urinary tract infection) Patient Disposition: Home, Self-Care Instructions: Urinary Tract Infection in Women (DC) Additional Instructions: You have a urinary tract infection Please take prescribed Ceftin which is an antibiotic In addition pyridium will help with bladder pain, this will discolored urine. Make sure drinking plenty of fluids. Please follow-up with Urology If her symptoms persist or worsen, if you develops fever, nausea/vomiting, or back pain please return to the emergency department Prescriptions: New cefuroxime axetil 250 mg tablet 250 mg PO BID 7 Days Qty: 14 0RF phenazopyridine [Pyridium] 200 mg tablet 200 mg PO TID PRN (Reason: pain) Qty: 6 0RF No Action buspirone 15 mg tablet 15 mg PO DAILY 30 Days Qty: 30 1RF venlafaxine 75 mg capsule,extended release 24hr 75 mg PO DAILY 30 Days Qty: 30 1RF cyclobenzaprine 10 mg tablet 10 mg PO Q8H Qty: 20 0RF ibuprofen 600 mg tablet 600 mg PO Q6H PRN (Reason: pain) Qty: 20 0RF levofloxacin 250 mg tablet 250 mg PO DAILY Qty: 5 0RF phenazopyridine [Pyridium] 100 mg tablet 100 mg PO TID PRN (Reason: pain) Qty: 6 0RF lorazepam 0.5 mg tablet 0.5 mg PO TID PRN0RF albuterol sulfate 90 mcg/actuation HFA aerosol inhaler 2 puff inhalation Q6H PRN (Reason: shortness of breath or wheezing) 30 Days Qty: 8.5 3RF cyclobenzaprine 10 mg tablet 10 mg PO BEDTIME 0RF ibuprofen 600 mg tablet 600 mg PO Q8H PRN0RF divalproex 500 mg tablet,delayed release (DR/EC) 500 mg PO BID 0RF Referrals: Holden Burger MD [Physician] - 2 days
[2021-11-16] MEDS: Phenazopyridine HCL 200 MG TABLET PO (18:56)
== END 2021-11-16 19:06 | disposition home or self-care (01) ==
PROVIDERS: Emergency Provider Internal Medicine; PCP Internal Medicine
DX: N39.0 Urinary tract infection, site not specified (principal); R31.9 Hematuria, unspecified; R30.0 Dysuria; R35.0 Frequency of micturition; R31.0 Gross hematuria; Z79.899 Other long term (current) drug therapy
CPT/HCPCS: 81001; 87086; 99284

== ENCOUNTER 2022-01-29 10:57 | Emergency (ER) | payer OTHER, SELFPAY ==
[2022-01-29] VITALS (8 sets, daily range): BP systolic 107–131; BP diastolic 52–80; PULSE 75–88; RESP 16–25; TEMP 36.8–37.1; O2SAT 100; BMI 24.1
--- NOTE | 2022-01-29 | ECG_ITS ---
Test Reason : CHEST PAIN Blood Pressure : / mmHG Vent. Rate : 086 BPM Atrial Rate : 086 BPM P-R Int : 122 ms QRS Dur : 074 ms QT Int : 356 ms P-R-T Axes : 048 028 017 degrees QTc Int : 426 ms Normal sinus rhythm Normal ECG When compared to the previous EKG of No significant changes seen Referred By: Generic ED Physician Electronically Signed By:CATHLEEN JIMENES MD
--- NOTE | ~2022-01-29 | XR_ITS ---
EXAMINATION: XR CHEST CLINICAL INFORMATION: Chest pain, shortness of breath. COMPARISON: 08/16/2019 chest radiograph. TECHNIQUE: Frontal view of the chest was obtained. FINDINGS: No significant abnormality is noted involving the heart, lungs, mediastinum, bony thorax or soft tissues. XR/XR chest 1V IMPRESSION: No acute cardiopulmonary process.
--- NOTE | ~2022-01-29 | US_ITS ---
EXAMINATION: US RETROPERITONEAL LIMITED (RENAL ONLY) CLINICAL INFORMATION: Flank pain with a history of stones. COMPARISON: CT dated 11/18/2020 TECHNIQUE: Real-time imaging by the house manager FINDINGS: The right kidney is 9.6 x 4.1 x 5.1 cm. There is no hydronephrosis. Numerous echogenic foci. Largest measuring 8 mm in the mid to lower pole. This may represent a nonobstructing calculus The left kidney is 9.3 x 4.9 x 4.8 cm. Again multiple small echogenic foci. Largest 4 mm in the mid pole may represent a nonobstructing calculus. No hydronephrosis US/US renal BI IMPRESSION: No evidence for hydronephrosis. Echogenic foci may well represent nonobstructing calculi
[2022-01-29 12:33] LABS: Appearance Urine CLEAR; Color Urine YELLOW; Glucose Urine UA NEG (NEG); Leukocyte Esterase Urine NEG (NEG); Nitrite Urine NEG (NEG); Specific Gravity - Urine 1.015 (1.005-1.025); Urine Blood NEG (NEG); Urine Ketones NEG (NEG); Urine Protein NEG (NEG-TRACE)
[2022-01-29 12:47] LABS: Basophils Percent Auto 0.5 % (0-2); Mean Corpuscular HGB Conc 32.7 g/dl (31.0-35.0); Mean Corpuscular Hemoglobin 28.3 pg (27.0-33.0); Red Cell Distribution Width 13.6 % (11.0-16.0); SCAN SMEAR FLAG 1
[2022-01-29 12:49] LABS: Eosinophils Percent Auto 0.3 % (0-4); Hematocrit 40.7 % (37.0-47.0); Hemoglobin 13.3 g/dl (12.0-16.0); Imm Gran Abs Auto 0.02 X10*3/uL (0.00-0.03); Imm Gran Pct Auto 0.3 % (0.0-0.4); Lymphocytes Absolute Auto 2.7 X10*3/uL (1.2-4.9); Lymphocytes Percent Auto 36.1 % (20-40); MANUAL DIFF FLAG SCAN; Mean Corpuscular Volume 86.6 fL (80.0-98.0); Monocytes Absolute Auto 0.6 X10*3/uL (0.1-1.2); Monocytes Percent Auto 8.3 % (2-11); Neutrophils Absolute Auto 4.1 x10*3/uL (2.0-8.3); Neutrophils Percent Auto 54.5 % (45-73); Platelet Count 143 X10*3/uL (160-400); White Blood Count 7.5 X10*3/uL (4.8-10.8)
[2022-01-29 12:54] LABS: PLT ABN DIST 1
[2022-01-29 13:08] LABS: Alanine Aminotransferase 13 U/L (0-31); Albumin Level 4.1 g/dL (3.5-5.0); Alkaline Phosphatase 60 U/L (39-117); Anion Gap 11 (12-20); Aspartate Amino Transferase 16 U/L (5-31); Bilirubin Direct < 0.2 mg/dL (0.0-0.5); Bilirubin Total 0.3 mg/dL (0.0-1.0); Blood Urea Nitrogen 9 mg/dL (9-16); Calcium 9.3 mg/dL (8.4-10.2); Carbon Dioxide 25 mmol/L (22-29); Chloride 107 mmol/L (96-108); Creatinine Clr Calc Pharmacy 76.6; Estimated Glomerular Filt Rate > 60; Glucose Random 71 mg/dL (60-115); Sodium 139 mmol/L (135-145); Total Protein 7.4 g/dL (6.5-8.0)
[2022-01-29 13:11] LABS: Troponin-I High Sensitivity < 3.5 ng/L (<3.5-17.0)
[2022-01-29 13:12] LABS: SLIDE REVIEW VERIFIED
--- NOTE | 2022-01-29 16:58 | ED_ITS ---
HPI - General Adult General Chief complaint: Arrhythmia/Palpitations Stated complaint: chest pain x2 days Time Seen by Provider: 01/29/22 16:48 Source: patient Mode of arrival: ambulatory History of Present Illness HPI narrative: 46-year-old female with a PMHx asthma, anxiety, depression, epilepsy, recurrent UTIs, renal stones, presenting to the ED complaining of?intermittent chest pain, shortness of breath, and palpitations since yesterday. Admits to lightheadedness. Reports symptoms exacerbated by her anxiety. Also reports suprapubic abdominal pain and left flank pain x1 week. Denies nausea, vomiting, diarrhea, fever, chills, cough, dysuria /hematuria, vaginal bleeding or discharge Onset (ago): day(s) Related Data Home Medications Medication Instructions Recorded Confirmed divalproex 500 mg tablet,delayed 500 mg PO BID 06/25/20 06/19/21 release lorazepam 0.5 mg tablet 0.5 mg PO TID PRN 01/01/21 06/19/21 cyclobenzaprine 10 mg tablet 10 mg PO BEDTIME 06/19/21 06/19/21 ibuprofen 600 mg tablet 600 mg PO Q8H PRN 06/19/21 06/19/21 Previous Rx's Medication Instructions Recorded albuterol sulfate 90 mcg/actuation 2 puff INHALATION Q6H PRN 30 Days 01/01/21 aerosol inhaler #8.5 g buspirone 15 mg tablet 15 mg PO DAILY 30 Days #30 tab 04/25/21 venlafaxine 75 mg capsule,extended 75 mg PO DAILY 30 Days #30 cap 04/25/21 release 24 hr cyclobenzaprine 10 mg tablet 10 mg PO Q8H #20 tab 06/16/21 ibuprofen 600 mg tablet 600 mg PO Q6H PRN #20 tab 06/16/21 levofloxacin 250 mg tablet 250 mg PO DAILY #5 tab 08/31/21 phenazopyridine 100 mg tablet 100 mg PO TID PRN #6 tab 08/31/21 (Pyridium) cefuroxime axetil 250 mg tablet 250 mg PO BID 7 Days #14 tab 11/16/21 phenazopyridine 200 mg tablet 200 mg PO TID PRN #6 tab 11/16/21 (Pyridium) meclizine 25 mg tablet 25 mg PO TID PRN #14 tab 01/29/22 Allergies Allergy/AdvReac Type Severity Reaction Status Date / Time aspirin [Aspirin] Allergy Severe RASH Verified 11/16/21 18:07 codeine [CODEINE] Allergy Severe ANAPHYLAXIS Verified 11/16/21 18:07 mayonnaise [MAYONNAISE] Allergy Mild UPSET Verified 11/16/21 18:07 STOMACH, RASH morphine [Morphine] Allergy Mild AGITATION/A Verified 11/16/21 18:07 NXIETY Penicillins Allergy Mild RASH Verified 11/16/21 18:07 cheese Allergy Unknown RASH Verified 11/16/21 18:07 latex [LATEX] Allergy Unknown RASH Verified 11/16/21 18:07 shrimp Allergy Shortness Verified 11/16/21 18:07 of Breath acetaminophen [From Tylenol] AdvReac Mild HEADACHES Verified 11/16/21 18:07 BUTTER FLAVOR Allergy Mild RASH, Uncoded 06/19/21 09:53 UPSET STOMACH Chocolate Allergy Mild UPSET Uncoded 06/19/21 09:53 STOMACH, RASH SPICY FOOD Allergy Mild UPSET Uncoded 06/19/21 09:53 STOMACH, RASH Review of Systems Review of Systems: Constitutional: No Fever, No Chills, No Fatigue, No Malaise ENT/Mouth: No Ear Pain, No Nasal Congestion,No sore throat, No Rhinorrhea, No Swallowing Difficulty Eyes: No Eye Pain, No Swelling, No Redness Cardiovascular: + Chest Pain, + SOB, No Dyspnea on Exertion, No Orthopnea, No Edema, + Palpitations Respiratory: No Cough, No Sputum, No Dyspnea Gastrointestinal: No Nausea, No Vomiting, No Diarrhea, No Constipation, + Abdominal pain Genitourinary: No Dysuria, No Urinary Frequency, No Hematuria, + Flank Pain, No Urinary Flow Changes, No Hesitancy Musculoskeletal: No joint pain, No Myalgias, No Joint Swelling Skin: No Skin Lesions, No rash Neuro: No Weakness, No Loss of Consciousness, + lightheadedness, No Headache Yes all other systems are reviewed and are negative [facility] Past Medical History Attestation statement: The following information was validated with the patient. Medical History Anxiety Asthma Chronic migraine Depression Encounter for Medicare annual wellness exam Epilepsy Nephrolithiasis Pelvic pain in female UTI (urinary tract infection) Surgical History History of tubal ligation Family History Family History Father Hypertension Stroke CVD (cardiovascular disease) Mother CVD (cardiovascular disease) Hypertension Brother No problems noted. Sister No problems noted. Son No problems noted. Daughter No problems noted. Daughter No problems noted. Social History Social History Housing: Apartment Alcohol intake: never Patient Tobacco Use Status: Never used Tobacco e-Cigarette/Vaping Use: Never Used Second Hand Smoke Exposure: No Use of substances other than those prescribed or required for medical reasons: No Advance Directives: No Advance Directives Information Provided: No service: No Current occupational status: disabled Physical Exam ED Vital Signs: Vital Signs - 24 hr 01/29/22 12:08 01/29/22 16:36 01/29/22 17:32 Temperature 98.3 F 98.7 F Pulse Rate 80 85 79 Respiratory Rate 18 16 Blood Pressure 107/52 L 111/72 113/71 Pulse Oximetry 100 100 01/29/22 17:34 01/29/22 17:35 01/29/22 18:00 Temperature Pulse Rate 80 88 76 Respiratory Rate 25 H Blood Pressure 119/74 131/80 109/73 Pulse Oximetry 100 BMI result Body Mass Index 24.1 Const General: cooperative, healthy appearing, no acute distress and anxious Orientation/consciousness: patient oriented x3 Limitations: no limitations HENMT Head: Yes normal to inspection and Yes atraumatic Ears: hearing grossly normal bilaterally General nose exam: Normal external nose present Face and sinus: Yes normal facial exam Eyes General: appearance normal, both eyes and all related structures EOM: EOMs intact bilaterally Neck Neck: Yes normal visual inspection and Yes no meningeal signs Resp Effort & Inspection: normal respiratory effort and no respiratory distress Auscultation: clear to auscultation bilaterally, no rales, no rhonchi and no w heezes Cardio Rate: regular rate Heart sounds: S1 normal heart sound present and S2 normal heart sound present GI Inspection: Yes normal to inspection Palpation (GI): Soft to palpation, nontender, no guarding and not rigid General: Yes no CVA tenderness Back/Spine/Pelvis Back: no CVA tenderness Skin Rashes: no rashes Wounds: no wounds Neuro General: patient oriented x3, tone normal and no meningeal signs Gait exam (Neuro): Normal gait present Extrem General: Yes normal to inspection Course Course Course Narrative: -1704-- no leukocytosis. Labs otherwise unremarkable. Troponin negative - UA negative XR chest 1V IMPRESSION: No acute cardiopulmonary process. ? - TSH WNL. Orthostatic vital signs WNL 2107--US renal BI IMPRESSION: No evidence for hydronephrosis. Echogenic foci may well represent nonobstructing calculi >> results discussed with patient including worrisome signs and symptoms and strict return precautions in needed close follow-up with PCP. She verbalized understanding and feel safe for discharge - patient requesting meclizine for discharge Medical Decision Making MDM Narrative Medical decision making narrative: 46-year-old female with a PMHx asthma, anxiety, depression, epilepsy, recurrent UTIs, renal stones, presenting to the ED complaining of?intermittent chest pain, shortness of breath, and palpitations since yesterday. Admits to lightheadedness. Also reports suprapubic abdominal pain and left flank pain x1 week. on exam vital signs stable, NAD, anxious, lungs CTA, abdomen soft /nontender, no CVA tenderness. Concern for anxiety vs metabolic abnormalities vs UTI /pyelo or renal stone. Symptoms atypical for ACS or PE. Low concern for pneumonia/viral illness. Unlikely appendicitis/ diverticulitis or ovarian torsion without tenderness on exam plan: Labs, UA, CXR, renal ultrasound, re-evaluate Medical Records Medical records reviewed: Yes I reviewed the patient's medical records. Lab Data Lab results reviewed: Yes I reviewed the patient's lab results. Result diagrams: 01/29/22 12:37 01/29/22 12:37 Labs: Lab Results 01/29/22 01/29/22 01/29/22 Range/Units 12:16 12:37 12:37 WBC 7.5 (4.8-10.8) X10*3/uL RBC 4.70 (4.20-5.50) X10*6/uL Hgb 13.3 (12.0-16.0) g/dl Hct 40.7 (37.0-47.0) % MCV 86.6 (80.0-98.0) fL MCH 28.3 (27.0-33.0) pg MCHC 32.7 (31.0-35.0) g/dl RDW 13.6 (11.0-16.0) % Plt Count 143 L (160-400) X10*3/uL MPV Not Reportable Immature Gran % (Auto) 0.3 (0.0-0.4) % Neut % (Auto) 54.5 (45-73) % Lymph % (Auto) 36.1 (20-40) % [place] % (Auto) 8.3 (2-11) % Eos % (Auto) 0.3 (0-4) % Baso % (Auto) 0.5 (0-2) % Lymph # (Auto) 2.7 (1.2-4.9) X10*3/uL [place] # (Auto) 0.6 (0.1-1.2) X10*3/uL Eos # (Auto) 0.0 (0.0-0.4) X10*3/uL Baso # (Auto) 0.0 (0.0-0.2) X10*3/uL Abs Immat Gran (auto) 0.02 (0.00-0.03) X10*3/uL Absolute Neuts (auto) 4.1 (2.0-8.3) x10*3/uL Absolute Nucleated RBC 0.000 (0.0-0.012) X10*3/uL Nucleated RBC % (auto) 0.0 (0.0-0.2) /100WBC Smear Tech's Comments VERIFIED Sodium 139 (135-145) mmol/L Potassium 4.0 (3.3-5.1) mmol/L Chloride 107 (96-108) mmol/L Carbon Dioxide 25 (22-29) mmol/L Anion Gap 11 L (12-20) BUN 9 (9-16) mg/dL Creatinine 0.76 (0.5-1.4) mg/dL Estim Creat Clear Calc 76.6 Estimated GFR > 60 Random Glucose 71 (60-115) mg/dL Calcium 9.3 (8.4-10.2) mg/dL Magnesium 2.2 (1.6-2.6) mg/dL Total Bilirubin 0.3 (0.0-1.0) mg/dL Direct Bilirubin < 0.2 (0.0-0.5) mg/dL AST 16 (5-31) U/L ALT 13 (0-31) U/L Alkaline Phosphatase 60 D (39-117) U/L Troponin I High Sens (<3.5-17.0) ng/L Total Protein 7.4 (6.5-8.0) g/dL Albumin 4.1 (3.5-5.0) g/dL Lipase 25 (8-78) U/L TSH 1.28 (0.32-4.0) uIU/mL Urine Color YELLOW Urine Appearance CLEAR Urine pH 8.0 (5.0-8.0) Ur Specific [place] 1.015 (1.005-1.025) Urine Protein NEG (NEG-TRACE) MG/DL Urine Glucose (UA) NEG (NEG) MG/DL Urine Ketones NEG (NEG) MG/DL Urine Blood NEG (NEG) Urine Nitrite NEG (NEG) Ur Leukocyte Esterase NEG (NEG) 01/29/22 Range/Units 12:37 WBC (4.8-10.8) X10*3/uL RBC (4.20-5.50) X10*6/uL Hgb (12.0-16.0) g/dl Hct (37.0-47.0) % MCV (80.0-98.0) fL MCH (27.0-33.0) pg MCHC (31.0-35.0) g/dl RDW (11.0-16.0) % Plt Count (160-400) X10*3/uL MPV Immature Gran % (Auto) (0.0-0.4) % Neut % (Auto) (45-73) % Lymph % (Auto) (20-40) % [place]ove % (Auto) (2-11) % Eos % (Auto) (0-4) % Baso % (Auto) (0-2) % Lymph # (Auto) (1.2-4.9) X10*3/uL [place] # (Auto) (0.1-1.2) X10*3/uL Eos # (Auto) (0.0-0.4) X10*3/uL Baso # (Auto) (0.0-0.2) X10*3/uL Abs Immat Gran (auto) (0.00-0.03) X10*3/uL Absolute Neuts (auto) (2.0-8.3) x10*3/uL Absolute Nucleated RBC (0.0-0.012) X10*3/uL Nucleated RBC % (auto) (0.0-0.2) /100WBC Smear Tech's Comments Sodium (135-145) mmol/L Potassium (3.3-5.1) mmol/L Chloride (96-108) mmol/L Carbon Dioxide (22-29) mmol/L Anion Gap (12-20) BUN (9-16) mg/dL Creatinine (0.5-1.4) mg/dL Estim Creat Clear Calc Estimated GFR Random Glucose (60-115) mg/dL Calcium (8.4-10.2) mg/dL Magnesium (1.6-2.6) mg/dL Total Bilirubin (0.0-1.0) mg/dL Direct Bilirubin (0.0-0.5) mg/dL AST (5-31) U/L ALT (0-31) U/L Alkaline Phosphatase (39-117) U/L Troponin I High Sens < 3.5 (<3.5-17.0) ng/L Total Protein (6.5-8.0) g/dL Albumin (3.5-5.0) g/dL Lipase (8-78) U/L TSH (0.32-4.0) uIU/mL Urine Color Urine Appearance Urine pH (5.0-8.0) Ur Specific [place] (1.005-1.025) Urine Protein (NEG-TRACE) MG/DL Urine Glucose (UA) (NEG) MG/DL Urine Ketones (NEG) MG/DL Urine Blood (NEG) Urine Nitrite (NEG) Ur Leukocyte Esterase (NEG) ECG Data Attestation: I personally reviewed and interpreted this ECG as follows: Interpretation: EKG normal sinus rhythm at a rate of 86. Pr interval 122. QTC 426. No STEMI Discharge Plan Discharge Clinical Impression: Atypical chest pain, Palpitations Abdominal pain Qualifiers: Abdominal location: lower abdomen, unspecified Qualified Code(s): R10.30 - Lower abdominal pain, unspecified Patient Disposition: Home, Self-Care Instructions: Chest Pain (ED), Heart Palpitations (DC), Abdominal Pain (ED) Additional Instructions: your blood work and ultrasound and chest x-ray were reassuring today in the emergency department. Please follow-up with your doctor. If symptoms persist or worsen become more constant, you fever or shortness of breath please return to the emergency department Prescriptions: New meclizine 25 mg tablet 25 mg PO TID PRN (Reason: dizziness) Qty: 14 0RF No Action buspirone 15 mg tablet 15 mg PO DAILY 30 Days Qty: 30 1RF venlafaxine 75 mg capsule,extended release 24hr 75 mg PO DAILY 30 Days Qty: 30 1RF cefuroxime axetil 250 mg tablet 250 mg PO BID 7 Days Qty: 14 0RF phenazopyridine [Pyridium] 200 mg tablet 200 mg PO TID PRN (Reason: pain) Qty: 6 0RF cyclobenzaprine 10 mg tablet 10 mg PO Q8H Qty: 20 0RF ibuprofen 600 mg tablet 600 mg PO Q6H PRN (Reason: pain) Qty: 20 0RF levofloxacin 250 mg tablet 250 mg PO DAILY Qty: 5 0RF phenazopyridine [Pyridium] 100 mg tablet 100 mg PO TID PRN (Reason: pain) Qty: 6 0RF lorazepam 0.5 mg tablet 0.5 mg PO TID PRN0RF albuterol sulfate 90 mcg/actuation HFA aerosol inhaler 2 puff inhalation Q6H PRN (Reason: shortness of breath or wheezing) 30 Days Qty: 8.5 3RF cyclobenzaprine 10 mg tablet 10 mg PO BEDTIME 0RF ibuprofen 600 mg tablet 600 mg PO Q8H PRN0RF divalproex 500 mg tablet,delayed release (DR/EC) 500 mg PO BID 0RF Referrals: Kwame Sutton MD [Primary Care Provider] - 3 days
[2022-01-29 17:12] LABS: Lipase 25 U/L (8-78); Magnesium 2.2 mg/dL (1.6-2.6)
--- NOTE | 2022-01-29 17:25 | PC.NURSE ---
pt a&ox3, vss, c/o sternal chest and left flank pain, hx of kidney stones, seizure hx. pt had panic attack yesterday followed by a seizure. pt has been having increased dizziness for 3-4d w headache. pt reports that she has been gardening outside over the past few days and that the sunlight sometimes triggers seizures. tech to complete orthostat vitals.
[2022-01-29 17:32] LABS: TSH reflex Free T4 1.28 uIU/mL (0.32-4.0)
[2022-01-29] MEDS: hydrOXYzine HCL 25 MG TABLET PO (19:18)
[2022-01-29] MEDS: Ketorolac Tromethamine 15 MG/ML VIAL IVPUSH (19:18)
--- NOTE | 2022-01-29 19:18 | PC.NURSE ---
20G IV placed right AC, medicated per provider order.
== END 2022-01-29 21:34 | disposition home or self-care (01) ==
PROVIDERS: Physician Assistant; Emergency Provider Emergency Medicine; PCP Internal Medicine
DX: R07.89 Other chest pain (principal); R00.2 Palpitations; R10.30 Lower abdominal pain, unspecified; J45.909 Unspecified asthma, uncomplicated; G40.909 Epilepsy, unspecified, not intractable, without status epilepticus
CPT/HCPCS: 36415; 71045; 76775; 80048; 80076; 81003; 83690; 83735; 84443; 84484; 85025; 93005; 96374; 99285; J1885

== ENCOUNTER 2022-02-10 15:50 | Outpatient (REF) | payer OTHER, SELFPAY ==
[2022-02-10 16:44] LABS: Alanine Aminotransferase 13 U/L (0-31); Albumin Level 4.2 g/dL (3.5-5.0); Alkaline Phosphatase 69 U/L (39-117); Aspartate Amino Transferase 17 U/L (5-31); Bilirubin Direct < 0.2 mg/dL (0.0-0.5); Bilirubin Total < 0.2 mg/dL (0.0-1.0); Total Protein 7.7 g/dL (6.5-8.0)
[2022-02-10 16:47] LABS: Valproate 45.3 mcg/mL (50.0-100.0)
== END 2022-02-10 15:51 | disposition home or self-care (01) ==
LOC: HO.LAB 15:50
PROVIDERS: PCP Internal Medicine; Visit Provider Psychiatry & Neurology Neurology
DX: G40.909 Epilepsy, unspecified, not intractable, without status epilepticus (principal); Z79.899 Other long term (current) drug therapy
CPT/HCPCS: 36415; 80076; 80164

== ENCOUNTER 2022-03-12 13:29 | Emergency (ER) | payer OTHER, SELFPAY ==
--- NOTE | ~2022-03-12 | CT_ITS ---
EXAMINATION: CT ABDOMEN AND PELVIS WITHOUT CONTRAST CLINICAL INFORMATION: CVA tenderness, hematuria COMPARISON: 11/18/2020 TECHNIQUE: Multidetector volumetric imaging was performed from the superior aspect of the liver through the pubic symphysis. Sagittal and coronal reformatted images were obtained on the technologist's workstation. This CT examination was performed using dose optimization techniques as appropriate, variously including the following: *Automated exposure control *Adjustment of mA and/or kV according to patient size (this includes techniques or standardized protocols for targeted exams where dose is matched to indication/reason for exam; i.e. extremities or head) *Use of iterative reconstruction technique DLP: 377 mGy-cm FINDINGS: LUNG BASES: Calcified granuloma at the left lung base. LIVER, GALLBLADDER, AND BILIARY TREE: The liver is normal in size, shape, and attenuation. No focal hepatic lesion or biliary ductal dilatation is present. Status post cholecystectomy PANCREAS: Region the pancreas is poorly defined due to unopacified adjacent bowel. No free fluid in the region SPLEEN: Unremarkable. ADRENAL GLANDS: Unremarkable. KIDNEYS AND URETERS: Small 1 to 2 mm nonobstructing calculus lower pole right kidney. There is no hydronephrosis. BLADDER: Mildly thick-walled bladder. GASTROINTESTINAL TRACT: Bowel pattern is felt to be nonobstructing. There is contrast in large bowel. Partially visualized appendix is within normal limits. Rounded high density rim structure within a small bowel loop in the left abdomen may be ingested. Nonobstructive bowel pattern. ABDOMINAL WALL: No significant hernia is appreciated. LYMPH NODES: Normal. VASCULAR: Unremarkable. PELVIC VISCERA: Unremarkable. OSSEOUS STRUCTURES: Unremarkable. CT/CT abdomen pelvis wo con IMPRESSION: Small 1 to 2 mm nonobstructing calculus mid to lower pole right kidney. There is no hydronephrosis. Mildly thick-walled bladder. Cystitis cannot be excluded. The bowel pattern is nonobstructing. No free fluid. Fleischner guidelines were followed.
[2022-03-12 14:09] VITALS: BP 115/69; PULSE 84; RESP 16; TEMP 36.9; O2SAT 100; BMI 24.1
--- NOTE | 2022-03-12 14:21 | ED_ITS ---
HPI - Female Genitourinary General Chief complaint: Urogenital-Female Stated complaint: blood in urine, dizzy, nausea Time Seen by Provider: 03/12/22 14:21 Source: patient Mode of arrival: ambulatory Limitations: no limitations History of Present Illness HPI Narrative: 47-year-old female with a past medical history of UTIs, presents for 3 days of increasing urinary frequency, hematuria, dysuria. No fevers, no back pain. Patient feels dizzy and nauseous. MD elicited complaint: dysuria and UTI Pertinent past history: recurrent UTIs Onset (ago): day(s) (3) Severity: moderate Female Urogenital Radiation: Non-Radiating Vaginal discharge: none Vaginal bleeding: none Urinary symptoms: Dysuria, Urgency, Frequency and Hematuria Exacerbating factors: none Relieving factors: none Associated symptoms: denies other symptoms Patient : No Related Data Home Medications Medication Instructions Recorded Confirmed divalproex 500 mg tablet,delayed 500 mg PO BID 06/25/20 06/19/21 release lorazepam 0.5 mg tablet 0.5 mg PO TID PRN 01/01/21 06/19/21 cyclobenzaprine 10 mg tablet 10 mg PO BEDTIME 06/19/21 06/19/21 ibuprofen 600 mg tablet 600 mg PO Q8H PRN 06/19/21 06/19/21 Previous Rx's Medication Instructions Recorded albuterol sulfate 90 mcg/actuation 2 puff inhalation Q6H PRN 01/01/21 aerosol inhaler shortness of breath or wheezing 30 days #8.5 grams buspirone 15 mg tablet 15 mg PO DAILY 30 days #30 tabs 04/25/21 venlafaxine 75 mg capsule,extended 75 mg PO DAILY 30 days #30 caps 04/25/21 release 24 hr cyclobenzaprine 10 mg tablet 10 mg PO Q8H #20 tabs 06/16/21 ibuprofen 600 mg tablet 600 mg PO Q6H PRN pain #20 tabs 06/16/21 levofloxacin 250 mg tablet 250 mg PO DAILY #5 tabs 08/31/21 phenazopyridine 100 mg tablet 100 mg PO TID PRN pain 6 doses #6 08/31/21 (Pyridium) tabs cefuroxime axetil 250 mg tablet 250 mg PO BID 7 days #14 tabs 11/16/21 phenazopyridine 200 mg tablet 200 mg PO TID PRN pain 6 doses #6 11/16/21 (Pyridium) tabs meclizine 25 mg tablet 25 mg PO TID PRN dizziness #14 tabs 01/29/22 phenazopyridine 200 mg tablet 200 mg PO TID 6 doses #6 tabs 03/12/22 (Pyridium) sulfamethoxazole 800 1 tab PO BID 7 days #14 tabs 03/12/22 mg-trimethoprim 160 mg tablet Allergies Allergy/AdvReac Type Severity Reaction Status Date / Time aspirin [Aspirin] Allergy Severe RASH Verified 11/16/21 18:07 codeine [CODEINE] Allergy Severe ANAPHYLAXIS Verified 11/16/21 18:07 mayonnaise [MAYONNAISE] Allergy Mild UPSET Verified 11/16/21 18:07 STOMACH, RASH morphine [Morphine] Allergy Mild AGITATION/A Verified 11/16/21 18:07 NXIETY Penicillins Allergy Mild RASH Verified 11/16/21 18:07 cheese Allergy Unknown RASH Verified 11/16/21 18:07 latex [LATEX] Allergy Unknown RASH Verified 11/16/21 18:07 shrimp Allergy Shortness Verified 11/16/21 18:07 of Breath acetaminophen [From Tylenol] AdvReac Mild HEADACHES Verified 11/16/21 18:07 BUTTER FLAVOR Allergy Mild RASH, Uncoded 06/19/21 09:53 UPSET STOMACH Chocolate Allergy Mild UPSET Uncoded 06/19/21 09:53 STOMACH, RASH SPICY FOOD Allergy Mild UPSET Uncoded 06/19/21 09:53 STOMACH, RASH Review of Systems Constitutional: Constitutional: Denies body ache(s), Denies chills, Denies fatigue, Denies fever(s), Denies malaise and Denies weakness Eyes: Eyes: Denies diplopia Cardiovascular: Cardiovascular: Denies chest pain, Denies syncope, Denies leg edema, Denies lightheadedness, Denies Loss of Consciousness, Denies palpitations and Denies dyspnea Respiratory: Respiratory: Denies chest congestion, Denies cough and Denies dyspnea Gastrointestinal: Gastrointestinal: Denies abdominal pain, Denies hematochezia, Denies constipation, Denies diarrhea, Reports nausea and Denies vomiting Genitourinary: Genitourinary: Reports hematuria, Denies genital pruritis, Reports dysuria, Denies pelvic pain, Reports urinary urgency and Denies vaginal discharge Musculoskeletal: Musculoskeletal: Reports no additional musculoskeletal complaints Neurologic: Denies confusion, Denies syncope and Denies weakness Psychiatric: Psychiatric: Denies anxiety, Denies confusion and Denies depression Endocrine: Endocrine: Denies fatigue and Denies palpitations PMFSH Past Medical History Medical History Chronic migraine UTI (urinary tract infection) Surgical History History of tubal ligation Family History Family History Father Hypertension Stroke CVD (cardiovascular disease) Mother CVD (cardiovascular disease) Hypertension Brother No problems noted. Sister No problems noted. Son No problems noted. Daughter No problems noted. Daughter No problems noted. Social History Social History Housing: Apartment Alcohol intake: never Patient Tobacco Use Status: Never used Tobacco e-Cigarette/Vaping Use: Never Used Second Hand Smoke Exposure: No Advance Directives: No Advance Directives Information Provided: No Patient : No service: No Current occupational status: disabled Physical Exam Vital Signs: Vital Signs: Last Vital Signs Temp 98.5 F 03/12/22 14:09 Pulse 84 03/12/22 14:09 Resp 16 03/12/22 14:09 BP 115/69 03/12/22 14:09 Pulse Ox 100 03/12/22 14:09 O2 Del Method 03/12/22 14:09 BMI result Body Mass Index 24.1 Const: General: No confusion Nutritional Appearance: well nourished Orientation/consciousness: No confusion Limitations: no limitations Eyes: Conjunctivae: conjunctivae normal Pupils: Equal, round and reactive pupils present EOM: EOMs intact bilaterally Neck: Neck: Yes full ROM, Yes no lymphadenopathy and Yes supple Resp: Effort & Inspection: normal respiratory effort and able to speak in complete sentences Auscultation: clear to auscultation bilaterally, no crackles, no rales, no rhonchi and no wheezes Cardio: Rate: regular rate Rhythm: regular rhythm Heart sounds: S1 normal heart sound present and S2 normal heart sound present GI: Inspection: Yes normal to inspection Palpation (GI): Soft to palpation, nontender, no guarding and not rigid Percussion: Yes normal to percussion Auscultation: normal bowel sounds : General: Yes CVA tenderness Back/Spine/Pelvis: Back: CVA tenderness Skin: General skin exam: no rashes or lesions noted Neuro: General: No confusion Cranial nerves: Yes Equal, round and reactive pupils present Extrem: General: Yes normal to inspection and Yes full ROM Psych: Appearance: grossly normal Affect: normal affect Attitude: cooperative Thought process: Normal thought process present Course Course Course Narrative: 49-year-old female with a past medical history of UTIs, presents with 3 days of dysuria, hematuria, urinary frequency. On exam, patient has stable vitals, is afebrile, has a benign abdominal exam, has right CVA tenderness Given patient's CVA tenderness, and blood in urine, will CT for pyelonephritis and kidney stones. Reevaluation(s) Reevaluation #1: Patient's labs are remarkable for white blood cell count of 12.8, UTI shows blood, +2 leukocyte esterase, 30-49 white blood cells in urine CT shows no hydronephrosis, nonobstructing kidney stone Patient's last urine culture grew out Klebsiella that was resistant to ampicillin, resistant to Macrobid, susceptible to ceftriaxone. However, last time patient had a UTI she was prescribed Ceftin, states she had side effects of nausea and vomiting. Last urine culture shows also susceptibility to Bactrim, will prescribe Bactrim. As patient has no perinephric fat stranding, no hydronephrosis, I want to avoid fluoroquinolones CT/CT abdomen pelvis wo con IMPRESSION: Small 1 to 2 mm nonobstructing calculus mid to lower pole right kidney. There is no hydronephrosis. ? Mildly thick-walled bladder. Cystitis cannot be excluded. ? The bowel pattern is nonobstructing. No free fluid.? MDM - Female Genitourinary Lab Data Result diagrams: 03/12/22 15:03 03/12/22 15:03 Labs: Lab Results 03/12/22 03/12/22 03/12/22 Range/Units 14:17 14:17 15:03 WBC 12.8 H (4.8-10.8) X10*3/uL RBC 4.90 (4.20-5.50) X10*6/uL Hgb 14.0 (12.0-16.0) g/dl Hct 42.5 (37.0-47.0) % MCV 86.7 (80.0-98.0) fL MCH 28.6 (27.0-33.0) pg MCHC 32.9 (31.0-35.0) g/dl RDW 13.8 (11.0-16.0) % Plt Count 190 D (160-400) X10*3/uL MPV 14.2 H (9.4-12.3) fL Immature Gran % (Auto) 0.3 (0.0-0.4) % Neut % (Auto) 74.6 H (45-73) % Lymph % (Auto) 18.0 L (20-40) % [place] % (Auto) 6.6 (2-11) % Eos % (Auto) 0.2 (0-4) % Baso % (Auto) 0.3 (0-2) % Lymph # (Auto) 2.3 (1.2-4.9) X10*3/uL [place] # (Auto) 0.9 (0.1-1.2) X10*3/uL Eos # (Auto) 0.0 (0.0-0.4) X10*3/uL Baso # (Auto) 0.0 (0.0-0.2) X10*3/uL Abs Immat Gran (auto) 0.04 H (0.00-0.03) X10*3/uL Absolute Neuts (auto) 9.5 H (2.0-8.3) x10*3/uL Absolute Nucleated RBC 0.000 (0.0-0.012) X10*3/uL Nucleated RBC % (auto) 0.0 (0.0-0.2) /100WBC Sodium (135-145) mmol/L Potassium (3.3-5.1) mmol/L Chloride (96-108) mmol/L Carbon Dioxide (22-29) mmol/L Anion Gap (12-20) BUN (9-16) mg/dL Creatinine (0.5-1.4) mg/dL Estim Creat Clear Calc Estimated GFR Random Glucose (60-115) mg/dL Calcium (8.4-10.2) mg/dL Total Bilirubin (0.0-1.0) mg/dL AST (5-31) U/L ALT (0-31) U/L Alkaline Phosphatase (39-117) U/L Total Protein (6.5-8.0) g/dL Albumin (3.5-5.0) g/dL Urine Color STRAW Urine Appearance HAZY Urine pH 5.5 (5.0-8.0) Ur Specific [place] <= 1.005 (1.005-1.025) Urine Protein NEG (NEG-TRACE) MG/DL Urine Glucose (UA) NEG (NEG) MG/DL Urine Ketones NEG (NEG) MG/DL Urine Blood 3+ H (NEG) Urine Nitrite NEG (NEG) Ur Leukocyte Esterase 2+ H (NEG) Urine RBC 5-9 H (0) /HPF Urine WBC 30-49 H (0-4) /HPF Ur Squamous Epith Cells TRACE /LPF Urine Bacteria TRACE /LPF Urine Test NEGATIVE (NEGATIVE) 03/12/22 Range/Units 15:03 WBC (4.8-10.8) X10*3/uL RBC (4.20-5.50) X10*6/uL Hgb (12.0-16.0) g/dl Hct (37.0-47.0) % MCV (80.0-98.0) fL MCH (27.0-33.0) pg MCHC (31.0-35.0) g/dl RDW (11.0-16.0) % Plt Count (160-400) X10*3/uL MPV (9.4-12.3) fL Immature Gran % (Auto) (0.0-0.4) % Neut % (Auto) (45-73) % Lymph % (Auto) (20-40) % [place] % (Auto) (2-11) % Eos % (Auto) (0-4) % Baso % (Auto) (0-2) % Lymph # (Auto) (1.2-4.9) X10*3/uL [place] # (Auto) (0.1-1.2) X10*3/uL Eos # (Auto) (0.0-0.4) X10*3/uL Baso # (Auto) (0.0-0.2) X10*3/uL Abs Immat Gran (auto) (0.00-0.03) X10*3/uL Absolute Neuts (auto) (2.0-8.3) x10*3/uL Absolute Nucleated RBC (0.0-0.012) X10*3/uL Nucleated RBC % (auto) (0.0-0.2) /100WBC Sodium 139 (135-145) mmol/L Potassium 4.1 (3.3-5.1) mmol/L Chloride 106 (96-108) mmol/L Carbon Dioxide 27 (22-29) mmol/L Anion Gap 10 L (12-20) BUN 9 (9-16) mg/dL Creatinine 0.81 (0.5-1.4) mg/dL Estim Creat Clear Calc 71.1 Estimated GFR > 60 Random Glucose 77 (60-115) mg/dL Calcium 8.9 (8.4-10.2) mg/dL Total Bilirubin 0.4 (0.0-1.0) mg/dL AST 16 (5-31) U/L ALT 11 (0-31) U/L Alkaline Phosphatase 65 (39-117) U/L Total Protein 7.6 (6.5-8.0) g/dL Albumin 4.2 (3.5-5.0) g/dL Urine Color Urine Appearance Urine pH (5.0-8.0) Ur Specific [place] (1.005-1.025) Urine Protein (NEG-TRACE) MG/DL Urine Glucose (UA) (NEG) MG/DL Urine Ketones (NEG) MG/DL Urine Blood (NEG) Urine Nitrite (NEG) Ur Leukocyte Esterase (NEG) Urine RBC (0) /HPF Urine WBC (0-4) /HPF Ur Squamous Epith Cells /LPF Urine Bacteria /LPF Urine Test (NEGATIVE) Discharge Plan Discharge Clinical Impression: UTI (urinary tract infection) Patient Disposition: Home, Self-Care Instructions: Urinary Tract Infection in Women (ED) Additional Instructions: Your CT scan did not show a kidney infection. You do have stones in her kidne ys, but they are not moving and should not be causing you pain. As we discussed, we will try Bactrim as your antibiotic, your last urine culture was susceptible to Bactrim. I have also prescribed Pyridium for pain for 2 days You must drink a lot of fluids, 2-3 L of water a day. If you have worsening pain, fevers, please return to emergency room Prescriptions: New sulfamethoxazole-trimethoprim 800-160 mg tablet 1 tab PO BID 7 Days Qty: 14 0RF phenazopyridine [Pyridium] 200 mg tablet 200 mg PO TID Qty: 6 0RF No Action buspirone 15 mg tablet 15 mg PO DAILY 30 Days Qty: 30 1RF venlafaxine 75 mg capsule,extended release 24hr 75 mg PO DAILY 30 Days Qty: 30 1RF cefuroxime axetil 250 mg tablet 250 mg PO BID 7 Days Qty: 14 0RF phenazopyridine [Pyridium] 200 mg tablet 200 mg PO TID PRN (Reason: pain) Qty: 6 0RF cyclobenzaprine 10 mg tablet 10 mg PO Q8H Qty: 20 0RF ibuprofen 600 mg tablet 600 mg PO Q6H PRN (Reason: pain) Qty: 20 0RF levofloxacin 250 mg tablet 250 mg PO DAILY Qty: 5 0RF phenazopyridine [Pyridium] 100 mg tablet 100 mg PO TID PRN (Reason: pain) Qty: 6 0RF meclizine 25 mg tablet 25 mg PO TID PRN (Reason: dizziness) Qty: 14 0RF lorazepam 0.5 mg tablet 0.5 mg PO TID PRN albuterol sulfate 90 mcg/actuation HFA aerosol inhaler 2 puff inhalation Q6H PRN (Reason: shortness of breath or wheezing) 30 Days Qty: 8.5 3RF cyclobenzaprine 10 mg tablet 10 mg PO BEDTIME ibuprofen 600 mg tablet 600 mg PO Q8H PRN divalproex 500 mg tablet,delayed release (DR/EC) 500 mg PO BID Interventions: ED Discharge Assessment Last Done: 03/12/22 16:46 Discharge Date/Time: 03/12/22 16:48
[2022-03-12 14:23] LABS: Appearance Urine HAZY; Color Urine STRAW; Glucose Urine UA NEG (NEG); Leukocyte Esterase Urine 2+ (NEG); Nitrite Urine NEG (NEG); PH 5.5 (5.0-8.0); Specific Gravity - Urine <= 1.005 (1.005-1.025); UACC Culture Trigger YES; Urine Blood 3+ (NEG); Urine Ketones NEG (NEG); Urine Protein NEG (NEG-TRACE)
[2022-03-12 14:31] LABS: Bacteria Urine TRACE /LPF; Squamous Epithelial Cell Urine TRACE /LPF; WBC Urine 30-49 /HPF (0-4)
[2022-03-12 14:45] LABS: UPreg QC Valid YES; Urine Pregnancy NEGATIVE (NEGATIVE)
[2022-03-12 15:12] LABS: MANUAL DIFF FLAG NO
[2022-03-12 15:27] LABS: Basophils Percent Auto 0.3 % (0-2); Eosinophils Percent Auto 0.2 % (0-4); Hematocrit 42.5 % (37.0-47.0); Imm Gran Abs Auto 0.04 X10*3/uL (0.00-0.03); Imm Gran Pct Auto 0.3 % (0.0-0.4); Lymphocytes Absolute Auto 2.3 X10*3/uL (1.2-4.9); Mean Corpuscular HGB Conc 32.9 g/dl (31.0-35.0); Mean Corpuscular Hemoglobin 28.6 pg (27.0-33.0); Mean Corpuscular Volume 86.7 fL (80.0-98.0); Mean Platelet Volume 14.2 fL (9.4-12.3); Monocytes Absolute Auto 0.9 X10*3/uL (0.1-1.2); Monocytes Percent Auto 6.6 % (2-11); Neutrophils Absolute Auto 9.5 x10*3/uL (2.0-8.3); Neutrophils Percent Auto 74.6 % (45-73); Platelet Count 190 X10*3/uL (160-400); Red Cell Distribution Width 13.8 % (11.0-16.0); White Blood Count 12.8 X10*3/uL (4.8-10.8)
[2022-03-12 15:28] LABS: Alanine Aminotransferase 11 U/L (0-31); Albumin Level 4.2 g/dL (3.5-5.0); Alkaline Phosphatase 65 U/L (39-117); Anion Gap 10 (12-20); Aspartate Amino Transferase 16 U/L (5-31); Bilirubin Total 0.4 mg/dL (0.0-1.0); Blood Urea Nitrogen 9 mg/dL (9-16); Calcium 8.9 mg/dL (8.4-10.2); Carbon Dioxide 27 mmol/L (22-29); Chloride 106 mmol/L (96-108); Creatinine Clr Calc Pharmacy 71.1; Estimated Glomerular Filt Rate > 60; Glucose Random 77 mg/dL (60-115); Potassium 4.1 mmol/L (3.3-5.1); Sodium 139 mmol/L (135-145); Total Protein 7.6 g/dL (6.5-8.0)
== END 2022-03-12 16:48 | disposition home or self-care (01) ==
PROVIDERS: Physician Assistant; Emergency Provider Emergency Medicine Emergency Medical Services; PCP Internal Medicine
DX: N39.0 Urinary tract infection, site not specified (principal)
CPT/HCPCS: 74176; 80053; 81001; 81025; 85025; 87086; 99282; 99284

== ENCOUNTER 2022-08-28 15:07 | Emergency (ER) | payer OTHER, SELFPAY ==
[2022-08-28 16:09] VITALS: BP 110/77; PULSE 87; RESP 18; TEMP 36.9; O2SAT 100; BMI 22.6
[2022-08-28 16:51] LABS: Appearance Urine Cloudy; Color Urine Yellow; Glucose Urine UA Negative (Negative); Leukocyte Esterase Urine Large (3+) (Negative); Nitrite Urine Negative (Negative); Specific Gravity - Urine 1.015 (1.005-1.025); UMIC TRIGGER UACC YES; Urine Blood Moderate (2+) (Negative); Urine Ketones Negative (Negative); Urine Protein Trace mg/dL (Neg-Trace)
[2022-08-28 16:56] LABS: Bacteria Urine None Seen (None Seen); Hyaline Casts Urine 0-2 /LPF (0-2); RBC Urine >20 /HPF (0-2); Squamous Epithelial Cell Urine 0-2 /HPF (0-2); UACC Culture Trigger YES; WBC Urine >50 /HPF (0-5)
[2022-08-28 17:27] LABS: Influenza A PCR NEGATIVE (Negative); Influenza B PCR NEGATIVE (Negative); Resp Syncy Virus RNA Qual PCR NEGATIVE (Negative); SARS COV2 PCR INHOUSE NEGATIVE (Negative)
--- NOTE | 2022-08-28 18:14 | ED.FEMALEGU ---
HPI - Female Genitourinary General Chief complaint: Urogenital-Female Stated complaint: Infrequent Urination w/Blood Time Seen by Provider: 08/28/22 18:02 Source: patient Mode of arrival: ambulatory Limitations: no limitations History of Present Illness HPI Narrative: 47-year-old female with the past medical history of recurrent UTIs was presenting to the ER with complaints of suprapubic abdominal pain / pressure with associated urinary frequency/ urgency/retention with hematuria and dysuria for the past 3 days worse today. She reports last time she was given Bactrim and that helped her UTI. She denies any thoughts of STDs. She reports that her daughter tested positive for the flu at home approximately 5 days ago and she had to bring her to her primary care provider's office today again for left eye swelling. Patient reports she felt a little shortness of breath and a slight cough. Otherwise she denies any dizziness, headaches, neck pain /stiffness, fevers, change in vision, nasal congestion /rhinorrhea, sore throat, trouble swallowing or breathing, chest pain or shortness of breath condescending exertion, orthopnea, palpitations paresthesias, rashes, flank pain, abnormal vaginal discharge, black or bloody stools, diarrhea constipation, recent travel, lower extremity edema or calf tenderness or any other symptoms complaints or concerns at this time. MD elicited complaint: dysuria, UTI and difficulty urinating Pertinent past history: recurrent UTIs Onset (ago): day(s) (3) Location of symptoms: suprapubic Severity: moderate Female Urogenital Radiation: Non-Radiating Quality of pain: cramping and aching Consistency: constant Vaginal discharge: none Vaginal bleeding: none Urinary symptoms: Dysuria, Urgency, Frequency, Hematuria and Difficulty Urinating Exacerbating factors: urination Relieving factors: none Associated symptoms: other ( Slight cough/shortness of breath) Treatment prior to arrival: none Sexual activity: Yes Patient : No Related Data Home Medications Medication Instructions Recorded Confirmed divalproex 500 mg tablet,delayed 500 mg PO BID 06/25/20 06/19/21 release lorazepam 0.5 mg tablet 0.5 mg PO TID PRN 01/01/21 06/19/21 cyclobenzaprine 10 mg tablet 10 mg PO BEDTIME 06/19/21 06/19/21 ibuprofen 600 mg tablet 600 mg PO Q8H PRN 06/19/21 06/19/21 Previous Rx's Medication Instructions Recorded albuterol sulfate 90 mcg/actuation 2 puff inhalation Q6H PRN 01/01/21 aerosol inhaler shortness of breath or wheezing 30 days #8.5 grams buspirone 15 mg tablet 15 mg PO DAILY 30 days #30 tabs 04/25/21 venlafaxine 75 mg capsule,extended 75 mg PO DAILY 30 days #30 caps 04/25/21 release 24 hr cyclobenzaprine 10 mg tablet 10 mg PO Q8H #20 tabs 06/16/21 ibuprofen 600 mg tablet 600 mg PO Q6H PRN pain #20 tabs 06/16/21 levofloxacin 250 mg tablet 250 mg PO DAILY #5 tabs 08/31/21 phenazopyridine 100 mg tablet 100 mg PO TID PRN pain 6 doses #6 08/31/21 (Pyridium) tabs cefuroxime axetil 250 mg tablet 250 mg PO BID 7 days #14 tabs 11/16/21 phenazopyridine 200 mg tablet 200 mg PO TID PRN pain 6 doses #6 11/16/21 (Pyridium) tabs meclizine 25 mg tablet 25 mg PO TID PRN dizziness #14 tabs 01/29/22 phenazopyridine 200 mg tablet 200 mg PO TID 6 doses #6 tabs 03/12/22 (Pyridium) sulfamethoxazole 800 1 tab PO BID 7 days #14 tabs 03/12/22 mg-trimethoprim 160 mg tablet phenazopyridine 100 mg tablet 100 mg PO TID PRN pain 6 doses #6 08/28/22 (Pyridium) tabs sulfamethoxazole 800 1 tab PO BID 10 days #20 tabs 08/28/22 mg-trimethoprim 160 mg tablet (Bactrim DS) Allergies Allergy/AdvReac Type Severity Reaction Status Date / Time aspirin [Aspirin] Allergy Severe RASH Verified 11/16/21 18:07 codeine [CODEINE] Allergy Severe ANAPHYLAXIS Verified 11/16/21 18:07 mayonnaise [MAYONNAISE] Allergy Mild UPSET Verified 11/16/21 18:07 STOMACH, RASH morphine [Morphine] Allergy Mild AGITATION/A Verified 11/16/21 18:07 NXIETY Penicillins Allergy Mild RASH Verified 11/16/21 18:07 cheese Allergy Unknown RASH Verified 11/16/21 18:07 latex [LATEX] Allergy Unknown RASH Verified 11/16/21 18:07 shrimp Allergy Shortness Verified 11/16/21 18:07 of Breath acetaminophen [From Tylenol] AdvReac Mild HEADACHES Verified 11/16/21 18:07 BUTTER FLAVOR Allergy Mild RASH, Uncoded 06/19/21 09:53 UPSET STOMACH Chocolate Allergy Mild UPSET Uncoded 06/19/21 09:53 STOMACH, RASH SPICY FOOD Allergy Mild UPSET Uncoded 06/19/21 09:53 STOMACH, RASH Review of Systems Review of Systems: Constitutional : No Weight loss, No Fever, No Chills, No Night Sweats, No Fatigue, No Malaise ENT/Mouth : No Hearing loss, No Ear Pain, No Nasal Congestion, No Sinus Pain, No Hoarseness, No sore throat, No Rhinorrhea, No Swallowing Difficulty Eyes: No Eye Pain, No Swelling, No Redness, No Foreign Body, No Discharge, No Vision Changes Cardiovascular : No Chest Pain, + SOB, No Dyspnea on Exertion, No Orthopnea, No Edema, No Palpitations Respiratory : + Cough, No Sputum, No Wheezing, No Smoke Exposure Gastrointestinal : No Nausea, No Vomiting, No Diarrhea, No Constipation, + suprapubic abdominal Pain, No Hematochezia, No Melena Genitourinary : no irregular bleeding, + Dysuria, + Urinary Frequency, + Hematuria, No Urinary Incontinence, + Urgency, No Flank Pain, No Urinary Flow Changes, No Hesitancy Musculoskeletal : No joint pain, No Myalgias, No Joint Swelling Skin : No Skin Lesions, No rash Neuro : No Weakness, No Numbness, No Paresthesias, No Loss of Consciousness, No Dizziness, No Headache Psych : No Anxiety/Panic, No Depression, No SI/HI/AH/VH, No Social Issues, Heme/Lymph: No Bruising, No Bleeding,No Lymphadenopathy Endocrine : No Polyuria, No Polydipsia, No Temperature Intolerance Yes all other systems are reviewed and are negative [facility] Past Medical History Attestation statement: The following information was validated with the patient. Source: old records reviewed and nursing notes reviewed Medical History Anxiety Asthma Chronic migraine Depression Encounter for Medicare annual wellness exam Epilepsy Nephrolithiasis Pelvic pain in female UTI (urinary tract infection) Surgical History History of tubal ligation Family History Family History Father Hypertension Stroke CVD (cardiovascular disease) Mother CVD (cardiovascular disease) Hypertension Brother No problems noted. Sister No problems noted. Son No problems noted. Daughter No problems noted. Daughter No problems noted. Social History Social History Housing: Apartment Alcohol intake: never Patient Tobacco Use Status: Never used Tobacco e-Cigarette/Vaping Use: Never Used Second Hand Smoke Exposure: No Advance Directives: No Advance Directives Information Provided: No service: No Current occupational status: disabled Physical Exam Vital Signs: Vital Signs: Last Vital Signs Temp 98.4 F 08/28/22 16:09 Pulse 87 08/28/22 16:09 Resp 18 08/28/22 16:09 BP 110/77 08/28/22 16:09 Pulse Ox 100 08/28/22 16:09 O2 Del Method 08/28/22 16:09 BMI result Body Mass Index 22.6 vital signs have been reviewed as normal and appeared to be correct. Blood pressure normal. Heart rate normal. Respiration rate normal. Temperature normal. Oxygen saturation normal. Appearance: Alert. Oriented X3. No acute distress. Head: Normal external exam. Normocephalic. Eyes: PERRLA. EOMI. Conjunctiva and sclera normal. Eyelids normal. ENT: Pharynx normal. Uvula midline. Moist mucous membranes. No trismus noted. No drooling noted. No muffled voice noted. Neck: Normal inspection. Neck supple. FROM. No adenopathy. No meningeal signs. CVS: Normal heart rate and rhythm. Heart sound normal. No murmurs noted. Pulses normal throughout. Respiratory: No respiratory distress. Painless inspiration. Breath sounds normal. No wheezes/rales/rhonchi noted. Chest nontender. No accessory muscle usage noted or decreased air movement noted. Abdomen: Soft and nontender. Nondistended. No guarding. No rigidity. Bowel sounds normal in all 4 quadrants. No distention noted. No organomegaly noted. No visible injury noted. No rebound tenderness. Negative Rovsing sign. Negative obturator's sign. Negative psoas sign. Negative Love sign. Back: No CVA tenderness. Full range of motion noted. Skin: Skin warm and dry. Normal skin color. Normal skin turgor. No rashes/lesions/lacerations noted. Extremities: Extremities exhibit normal range of motion. Extremities nontender. Neuro: Oriented X 3. No motor deficit. No sensory deficit. Reflexes normal. Normal steady gait. CN's II-XII intact bilaterally? Course Course Course Narrative: 47-year-old female with the past medical history of recurrent UTIs was presenting to the ER with complaints of suprapubic abdominal pain / pressure with associated urinary frequency/ urgency/retention with hematuria and dysuria for the past 3 days worse today. She reports last time she was given Bactrim and that helped her UTI. She denies any thoughts of STDs. She reports that her daughter tested positive for the flu at home approximately 5 days ago and she had to bring her to her primary care provider's office today again for left eye swelling. Patient reports she felt a little shortness of breath and a slight cough. patient negative for COVID/RSV/ flu. Patient positive for UTI. Negative for . No additional labs or imaging indicated at this time lungs are clear to auscultation. CV RRR. abdomen is soft and nontender. No CVA tenderness is noted. Will DC home with Bactrim as patient requested it and it appears that has been susceptible to her past bacteria is instructions return if any new or worsening symptoms to follow up with primary care provider. Patient understands agrees with this plan. Medical Decision Making Medical Decision Making Lab Attestation: I reviewed the patient's lab results. Discharge Plan Discharge Clinical Impression: UTI (urinary tract infection) Patient Disposition: Home, Self-Care Instructions: Urinary Tract Infection in Women (ED) Prescriptions: New sulfamethoxazole-trimethoprim [Bactrim DS] 800-160 mg tablet 1 tab PO BID 10 Days Qty: 20 0RF phenazopyridine [Pyridium] 100 mg tablet 100 mg PO TID PRN (Reason: pain) Qty: 6 0RF No Action buspirone 15 mg tablet 15 mg PO DAILY 30 Days Qty: 30 1RF venlafaxine 75 mg capsule,extended release 24hr 75 mg PO DAILY 30 Days Qty: 30 1RF cefuroxime axetil 250 mg tablet 250 mg PO BID 7 Days Qty: 14 0RF phenazopyridine [Pyridium] 200 mg tablet 200 mg PO TID PRN (Reason: pain) Qty: 6 0RF sulfamethoxazole-trimethoprim 800-160 mg tablet 1 tab PO BID 7 Days Qty: 14 0RF phenazopyridine [Pyridium] 200 mg tablet 200 mg PO TID Qty: 6 0RF cyclobenzaprine 10 mg tablet 10 mg PO Q8H Qty: 20 0RF ibuprofen 600 mg tablet 600 mg PO Q6H PRN (Reason: pain) Qty: 20 0RF levofloxacin 250 mg tablet 250 mg PO DAILY Qty: 5 0RF phenazopyridine [Pyridium] 100 mg tablet 100 mg PO TID PRN (Reason: pain) Qty: 6 0RF meclizine 25 mg tablet 25 mg PO TID PRN (Reason: dizziness) Qty: 14 0RF lorazepam 0.5 mg tablet 0.5 mg PO TID PRN albuterol sulfate 90 mcg/actuation HFA aerosol inhaler 2 puff inhalation Q6H PRN (Reason: shortness of breath or wheezing) 30 Days Qty: 8.5 3RF cyclobenzaprine 10 mg tablet 10 mg PO BEDTIME ibuprofen 600 mg tablet 600 mg PO Q8H PRN divalproex 500 mg tablet,delayed release (DR/EC) 500 mg PO BID Referrals: Kwame Sutton MD [Primary Care Provider] - 3 days
[2022-08-28 18:28] LABS: UPreg QC Valid YES; Urine Pregnancy NEGATIVE (NEGATIVE)
[2022-08-28] MEDS: Sulfamethox/Trimeth 800/160 TABLET 1 TAB PO (19:06)
[2022-08-28] MEDS: Phenazopyridine HCL 100 MG TABLET PO (19:06)
== END 2022-08-28 19:10 | disposition home or self-care (01) ==
PROVIDERS: Physician Assistant Medical; Emergency Provider Emergency Medicine; PCP Internal Medicine
DX: R33.9 Retention of urine, unspecified (principal); N39.0 Urinary tract infection, site not specified; R06.02 Shortness of breath; R30.0 Dysuria; Z20.822 Contact with and (suspected) exposure to COVID-19; Z79.899 Other long term (current) drug therapy
CPT/HCPCS: 0241U; 81001; 81025; 87086; 99283

== ENCOUNTER 2022-10-29 08:40 | Outpatient (REF) | payer OTHER, SELFPAY ==
[2022-10-29 08:52] LABS: MANUAL DIFF FLAG NO
[2022-10-29 09:50] LABS: Basophils Absolute Auto 0.1 X10*3/uL (0.0-0.2); Basophils Percent Auto 0.9 % (0-2); Eosinophils Percent Auto 0.6 % (0-4); Hematocrit 41.6 % (37.0-47.0); Hemoglobin 13.5 g/dl (12.0-16.0); Imm Gran Abs Auto 0.01 X10*3/uL (0.00-0.03); Imm Gran Pct Auto 0.2 % (0.0-0.4); Lymphocytes Absolute Auto 2.4 X10*3/uL (1.2-4.9); Lymphocytes Percent Auto 37.7 % (20-40); Mean Corpuscular HGB Conc 32.5 g/dl (31.0-35.0); Mean Corpuscular Volume 86.1 fL (80.0-98.0); Monocytes Absolute Auto 0.6 X10*3/uL (0.1-1.2); Monocytes Percent Auto 9.8 % (2-11); Neutrophils Absolute Auto 3.3 x10*3/uL (2.0-8.3); Neutrophils Percent Auto 50.8 % (45-73); Platelet Count 156 X10*3/uL (160-400); Red Blood Count 4.83 X10*6/uL (4.20-5.50); Red Cell Distribution Width 13.8 % (11.0-16.0); White Blood Count 6.4 X10*3/uL (4.8-10.8)
[2022-10-29 10:30] LABS: Appearance Urine Clear; Color Urine Yellow; Glucose Urine UA Negative (Negative); Leukocyte Esterase Urine Negative (Negative); Nitrite Urine Negative (Negative); PH 6.5 (5.0-9.0); Urine Blood Negative (Negative); Urine Ketones Negative (Negative); Urine Protein Negative (Neg-Trace)
[2022-10-29 10:52] LABS: Valproate 31.7 mcg/mL (50.0-100.0)
[2022-10-29 10:56] LABS: Alanine Aminotransferase 14 U/L (0-31); Albumin Level 4.2 g/dL (3.5-5.0); Alkaline Phosphatase 58 U/L (39-117); Anion Gap 12 (12-20); Aspartate Amino Transferase 17 U/L (5-31); Bilirubin Total 0.6 mg/dL (0.0-1.0); Blood Urea Nitrogen 9 mg/dL (9-16); Carbon Dioxide 24 mmol/L (22-29); Chloride 108 mmol/L (96-108); Cholesterol 188 mg/dL; Estimated Glomerular Filt Rate > 60; Glucose Fasting 80 mg/dL (60-99); HDL Cholesterol 53 mg/dL; LDL Cholesterol Calculated 111 mg/dl; Potassium 4.2 mmol/L (3.3-5.1); Sodium 140 mmol/L (135-145); Total Protein 7.3 g/dL (6.5-8.0); Triglycerides 123 mg/dL
[2022-10-29 11:16] LABS: TSH reflex Free T4 2.57 uIU/mL (0.32-4.0); Vitamin D 25-OH Total 12.1 ng/mL (>30)
== END 2022-10-29 08:41 | disposition home or self-care (01) ==
LOC: HO.LAB 08:40
PROVIDERS: PCP Internal Medicine; Visit Provider Internal Medicine
DX: E55.9 Vitamin D deficiency, unspecified (principal); G40.909 Epilepsy, unspecified, not intractable, without status epilepticus; R30.0 Dysuria; F41.9 Anxiety disorder, unspecified; R07.9 Chest pain, unspecified; E78.00 Pure hypercholesterolemia, unspecified
CPT/HCPCS: 36415; 80053; 80061; 80164; 81003; 82306; 84443; 85025

== ENCOUNTER → 2022-11-05 13:48 | Outpatient (BNVA) | payer OTHER, SELFPAY | PROVIDERS: PCP Internal Medicine; Visit Provider Urology | DX: N20.0 Calculus of kidney (principal); R10.2 Pelvic and perineal pain; N39.0 Urinary tract infection, site not specified | CPT/HCPCS: 51798; 99202 ==

== ENCOUNTER 2022-11-12 10:21 | Outpatient (REF) | payer OTHER, SELFPAY ==
--- NOTE | ~2022-11-12 | MM_ITS ---
EXAMINATION: MM SCREENING DIGITAL BREAST TOMOSYNTHESIS, BILATERAL CLINICAL INFORMATION: Screening. Asymptomatic. The lifetime risk of breast cancer based on the Tyrer-Cuzick Model is 15%. COMPARISON: Mammography: 11/13/2019, 01/30/2008 TECHNIQUE: Digital breast tomosynthesis is performed in both the craniocaudal and mediolateral oblique views along with computer-aided detection (CAD). Synthesized 2D images are generated from the tomosynthesis. Additional right CC view is provided. FINDINGS: The breasts are heterogeneously dense, which may obscure small masses (ACR BI-RADS breast composition Category c). There are no significant masses, abnormal calcifications, or other abnormalities. Parenchymal pattern is similar to prior studies. There is no developing density or architectural abnormality. The axilla and skin contours are unremarkable. No significant changes. MM/MM tomosynthesis screening BI IMPRESSION: No mammographic evidence of malignancy. ASSESSMENT: BI-RADS 1: Negative RECOMMENDATION: Routine annual mammography screening. This patient's information was entered into a reminder system with a target due date for their next mammogram.
== END 2022-11-12 10:22 | disposition home or self-care (01) ==
LOC: HO.MAMMO 10:21
PROVIDERS: PCP Internal Medicine; Visit Provider Internal Medicine
DX: Z12.31 Encounter for screening mammogram for malignant neoplasm of breast (principal)
CPT/HCPCS: 77063; 77067

== ENCOUNTER 2022-11-30 08:36 | Outpatient (REF) | payer OTHER, SELFPAY ==
--- NOTE | ~2022-11-30 | US_ITS ---
EXAMINATION: US ABDOMEN COMPLETE CLINICAL INFORMATION: Lower abdominal pain, unspecified. COMPARISON: CT abdomen and pelvis without contrast 03/12/2022. Ultrasound retroperitoneal limited (renal only) 01/29/2022. Ultrasound abdomen 05/23/2014. TECHNIQUE: Real-time imaging of the abdominal viscera. FINDINGS: PANCREAS: Normal. ABDOMINAL AORTA: The proximal, mid, and distal segments are normal in caliber. INFERIOR VENA CAVA: Visualized portions are normal. LIVER: Normal. The liver is normal in size. The liver contour is normal. Parenchymal echogenicity is normal. No focal hepatic lesion. There is no intrahepatic biliary duct dilatation seen. GALLBLADDER: Cholecystectomy. COMMON BILE DUCT: Normal in caliber measuring 0.5 cm in diameter. RIGHT KIDNEY: Normal. No hydronephrosis. No renal calculi or focal parenchymal lesions. The kidney measures 9.5 cm in maximum dimension. LEFT KIDNEY: Normal. No hydronephrosis. No renal calculi or focal parenchymal lesions. The kidney measures 8.8 cm in maximum dimension. SPLEEN: Normal. The spleen measures 8.9 cm in maximum dimension. FREE FLUID: None. US/US abdomen complete IMPRESSION: Normal abdominal ultrasound.
--- NOTE | ~2022-11-30 | US_ITS ---
EXAMINATION: US PELVIS CLINICAL INFORMATION: Lower abdominal pain. COMPARISON: CT abdomen and pelvis 03/12/2022. Pelvic ultrasound 05/23/2014. TECHNIQUE: Ultrasound of the pelvis is performed using both transabdominal and transvaginal transducers along with Doppler. Transvaginal imaging is performed due to inadequate visualization transabdominally. FINDINGS: Uterus: The uterus is anteverted and measures 9.2 x 5.2 x 5.4 cm. The double wall endometrial thickness is 8 mm. The uterus is smooth in contour and has normal myometrial echogenicity. There is a 2.7 x 2.0 x 2.2 cm right fundal fibroid. Adnexa: Both ovaries are visualized. There is normal color flow to the adnexa. There is no ovarian torsion. There is no pelvic ascites or fluid collection. Right ovary measures 2.3 x 1.9 x 2.0 cm. Volume 4.6 mL. Left ovary measures 3.4 x 2.5 x 2.3 cm. Volume 10.2 mL. Engorged left parametrial veins may reflect congestion. US/US pelvic and transvaginal IMPRESSION: 2.7 cm right fundal fibroid. Engorged left parametrial veins may reflect pelvic congestion.
== END 2022-11-30 08:37 | disposition home or self-care (01) ==
LOC: HO.US 08:36
PROVIDERS: PCP Internal Medicine; Visit Provider Internal Medicine
DX: R10.2 Pelvic and perineal pain (principal); R10.30 Lower abdominal pain, unspecified
CPT/HCPCS: 76700; 76830; 76856

== ENCOUNTER → 2023-01-06 09:11 | Outpatient (BNVA) | payer OTHER, SELFPAY | PROVIDERS: PCP Internal Medicine; Referring Provider Internal Medicine; Visit Provider Internal Medicine Cardiovascular Disease | DX: Z01.810 Encounter for preprocedural cardiovascular examination (principal); R07.89 Other chest pain; R00.2 Palpitations | CPT/HCPCS: 93005; 99202 ==

== ENCOUNTER → 2023-01-28 08:46 | Outpatient (REF) | payer OTHER, SELFPAY ==
--- NOTE | 2023-01-28 08:49 | HM_ITS ---
* Total monitoring time 2 days. * Underlying rhythm is sinus. Average ventricular rate 93/Min. Range 71 to 152/Min. * About 30% the time, sinus tachycardia with heart rate > 100/Min. * Rare supraventricular ectopy. * No sustained arrhythmias. * No significant pauses or AV blocks. * Palpitations in diary correlates with sinus rhythm and sinus tachycardia. MTDD
--- NOTE | 2023-01-28 08:49 | CA_ITS ---
Acquisition Time: 2023-01-28 09:53:08 Total Exercise Time: 00:06:07 Test Indications: Chest Pain, PREOP Medications: Protocol: ADDISON Max HR: 164 BPM 94% of Pred: 174 BPM Max BP: 162/062 mmHG Max Work Load: 7.1 METS Exercise stress test exercise 6 min 7 sec of Addison protocol achieivng 94% MPHR, with mild SOB, no chest discomfort, without arrhythmias, with normotensive response to exercise, without EKG changes during exercise, non-specific ST /T changes in recovery. Test reviewed with Dr. Limon. Referred By: Humphrey Hart Overread By: WILIAN PATTERSON
--- NOTE | 2023-01-28 08:49 | CA_ITS ---
Transthoracic Echocardiogram Patient (Last, First, Middle): Nida Benedict, Gender: Female Date of : 1975 Age: 47 Procedure Date: 01/28/2023 Procedure Type: Transthoracic Echocardiogram Location: OP Height: 154.94 cm Weight: 58.97 kg BSA: 1.57 m2 Heart Rate: 89 bpm BP: 105 / 76 mmHg Angle Shear Set Up Operator: AYAN Referring MD: Humphrey Hart MD Symptoms: R07.89 - Other chest pain Study Quality: Adequate ECG Rhythm: Sinus Conclusions: - The left ventricular systolic function is normal. The calculated ejection fraction is 67% by biplane method. - No obvious valvular pathology seen on this study. Findings Left Ventricle Normal left ventricular cavity size. There is normal left ventricular wall thickness. The left ventricular systolic function is normal. The calculated ejection fraction is 67% by biplane method. There is no evidence of regional wall motion abnormalities. Diastolic function is normal for age. Right Ventricle Normal right ventricular cavity size and systolic function. Atria Both atria are normal in size. Aortic Valve There is a normal trileaflet aortic valve. There is no aortic valve stenosis. There is no aortic valve regurgitation. Mitral Valve The mitral valve appears normal. There is trace mitral valve regurgitation. There is no mitral valve stenosis. Pulmonic Valve The pulmonic valve is likely normal. Tricuspid Valve Normal tricuspid valve structure. There is trace tricuspid valve regurgitation. There is no evidence of pulmonary hypertension. Great Vessels The asc aorta is normal in size. Venous The inferior vena cava is normal in size and collapses greater than 50% with inspiration. Pericardium/Pleural There is no evidence of pericardial effusion. Prior Study Comparison No prior study available for comparison. Recommendations, Care & Conclusions No obvious valvular pathology seen on this study. Measurements 2D Linear Measurements IVSd: 0.76 0.6-0.9/0.6-1.0 cm LVIDd: 3.75 3.9-5.3/4.2-5.9 cm LVIDd Index: 2.39 2.4-3.2/2.2-3.1 cm/m2 LVIDs: 2.36 2.0-3.6 cm LVPWd: 0.99 0.7-1.1 cm LA Diam: 2.80 2.7-3.8/3.0-4.0 cm LAIDs Index: 1.78 1.5-2.3 cm/m2 LV Mass: 118.47 67-162/88-224 g LV Mass Index: 75.46 43-95/49-115 g/m2 LVOT Diam: 1.90 3.0+(-)1.3 cm 2D Systolic Function EF 4C: 65.40 >55% EF 2C: 67.10 >55% EF BiP: 67.20 >55% Mitral Valve MV Pk E: 0.90 MV PK A: 0.47 MV Decel Time: 196.00 E/A: 1.90 E'Lateral: 14.80 E'Medial: 10.90 E/E' Med: 8.30 E/E' Lat: 6.10 PHT: 57.00 MVA PHT: 3.86 Decel Tompkins: 4.62 Aortic Valve AoV Pk Eugenio: 1.52 AoV Mn Eugenio: 0.99 AoV VTI: 0.29 AoV Pk Grad: 9.00 Aov Mn Grad: 4.00 MODESTO Cont.VTI: 2.21 LVOT LVOT Pk Eugenio: 1.25 LVOT Mn Eugenio: 0.85 LVOT VTI: 0.22 LVOT Pk Grad: 6.00 LVOT Mn Grad: 3.00 LVOT Diam: 1.90 LVOT Area: 2.84 Diastolic Function MV Pk E: 0.90 MV Pk A: 0.47 E/A: 1.90 E'Medial: 10.90 E/E' Med: 8.30 E' Laterial: 14.80 E/E' Lat: 6.10 Right Ventricle TAPSE (mm): 25.00 TVS' Eugenio: 11.20 Tricuspid Valve TR Pk Eugenio: 2.12 TR Pk Grad: 18.00 RA Press: 3.00 RVSP: 21.00 Great Vessels Aorta Sinus of Valsalva: 2.60 2.0-3.[address] Ridge: 2.20 1.7-3.4 cm Ao Asc: 2.50 2.1-3.4 cm Updated in Other Vendor System with Status of Final Douglas Limon MD electronically signed on 01/30/2023 11:42:15 AM with status of Final
== END ==
LOC: HO.CARD 08:46
PROVIDERS: PCP Internal Medicine; Visit Provider Internal Medicine Cardiovascular Disease
DX: R07.89 Other chest pain (principal); R00.2 Palpitations
CPT/HCPCS: 93017; 93225; 93306

== ENCOUNTER 2023-02-08 02:23 | Emergency (ER) | payer OTHER, SELFPAY ==
[2023-02-08] MEDS: LORazepam 1 MG TABLET 2 MG PO (02:44)
[2023-02-08 02:46] VITALS: BP 136/70; PULSE 90; RESP 16; O2SAT 99; BMI 24.6
--- NOTE | 2023-02-08 02:47 | ED_ITS ---
HPI - General Adult General Chief complaint: Anxiety Stated complaint: trembling, history of seizures Time Seen by Provider: 02/08/23 02:38 Source: patient Mode of arrival: ambulatory Limitations: no limitations History of Present Illness HPI narrative: Patient comes to the emergency room complaining of feeling very tremulous, and very anxious. Patient states that she takes 0.5 mg of Ativan twice or 3 times a day daily. Patient states that she thought she had a refill for her Ativan but she did not. Patient called her primary care physician and she would not be able to be seen until 2 days from now. Patient complaining of a headache . Denies headache, no chest pain or shortness of breath. Related Data Home Medications Medication Instructions Recorded Confirmed divalproex 500 mg tablet,delayed 500 mg PO BID 06/25/20 01/06/23 release amitriptyline 10 mg tablet 5 mg PO BEDTIME 10/28/22 01/06/23 metoprolol succinate 25 mg 25 mg PO DAILY 10/28/22 01/06/23 tablet,extended release 24 hr lorazepam 0.5 mg tablet 0.5 mg PO BID 01/06/23 01/06/23 Previous Rx's Medication Instructions Recorded albuterol sulfate 90 mcg/actuation 2 puff inhalation Q6H PRN 10/28/22 aerosol inhaler shortness of breath or wheezing 30 days #8.5 grams buspirone 15 mg tablet 15 mg PO DAILY 30 days #30 tabs 10/28/22 meclizine 25 mg tablet 25 mg PO TID PRN dizziness #30 tabs 10/28/22 venlafaxine 75 mg capsule,extended 75 mg PO DAILY 30 days #30 caps 10/28/22 release 24 hr lorazepam 0.5 mg tablet 0.5 mg PO TID PRN anxiety #7 tabs 02/08/23 Allergies Allergy/AdvReac Type Severity Reaction Status Date / Time aspirin [Aspirin] Allergy Severe RASH Verified 01/06/23 09:16 codeine [CODEINE] Allergy Severe ANAPHYLAXIS Verified 01/06/23 09:16 mayonnaise [MAYONNAISE] Allergy Mild UPSET Verified 01/06/23 09:16 STOMACH, RASH morphine [Morphine] Allergy Mild AGITATION/A Verified 01/06/23 09:16 NXIETY Penicillins Allergy Mild RASH Verified 01/06/23 09:16 cheese Allergy Unknown RASH Verified 01/06/23 09:16 latex [LATEX] Allergy Unknown RASH Verified 01/06/23 09:16 shrimp Allergy Shortness Verified 01/06/23 09:16 of Breath acetaminophen [From Tylenol] AdvReac Mild HEADACHES Verified 01/06/23 09:16 BUTTER FLAVOR Allergy Mild RASH, Uncoded 01/06/23 09:16 UPSET STOMACH Chocolate Allergy Mild UPSET Uncoded 01/06/23 09:16 STOMACH, RASH SPICY FOOD Allergy Mild UPSET Uncoded 01/06/23 09:16 STOMACH, RASH Review of Systems Review of Systems: Constitutional : No Weight loss, No Fever, No Chills, No Night Sweats, No Fatigue, No Malaise ENT/Mouth : No Hearing loss, No Ear Pain, No Nasal Congestion, No Sinus Pain, No Hoarseness, No sore throat, No Rhinorrhea, No Swallowing Difficulty Eyes: No Eye Pain, No Swelling, No Redness, No Foreign Body, No Discharge, No Vision Changes Cardiovascular : No Chest Pain, No SOB, No Dyspnea on Exertion, No Orthopnea, No Edema, No Palpitations Respiratory : No Cough, No Sputum, No Wheezing, No Smoke Exposure, No Dyspnea Gastrointestinal : No Nausea, No Vomiting, No Diarrhea, No Constipation, No abdominal Pain, No Hematochezia, No Melena Genitourinary : no irregular bleeding, No Dysuria, No Urinary Frequency, No Hematuria, No Urinary Incontinence, No Urgency, No Flank Pain, No Urinary Flow Changes, No Hesitancy Musculoskeletal : No joint pain, No Myalgias, No Joint Swelling Skin : No Skin Lesions, No rash Neuro : Complaining of feeling tremulous No Weakness, No Numbness, No Paresthesias, No Loss of Consciousness, No Dizziness, playing of the Headache Psych : No Anxiety/Panic, No Depression, No SI/HI/AH/VH, No Social Issues, Heme/Lymph: No Bruising, No Bleeding,No Lymphadenopathy Endocrine : No Polyuria, No Polydipsia, No Temperature Intolerance [facility] Past Medical History Medical History Anxiety Asthma Chronic migraine Depression Encounter for Medicare annual wellness exam Epilepsy Nephrolithiasis Pelvic pain in female UTI (urinary tract infection) Surgical History History of tubal ligation Family History Family History Father Hypertension Stroke CVD (cardiovascular disease) Mother CVD (cardiovascular disease) Hypertension Brother No problems noted. Sister No problems noted. Son No problems noted. Daughter No problems noted. Daughter No problems noted. Social History Social History Housing: Apartment Alcohol intake: never Patient Tobacco Use Status: Never used Tobacco Smoked in Last 30 Days: No e-Cigarette/Vaping Use: Never Used Second Hand Smoke Exposure: No Use of substances other than those prescribed or required for medical reasons: No Advance Directives: No Advance Directives Information Provided: No Patient : No service: No Current occupational status: disabled Cognitive needs: No Hearing needs: No Vision needs: No Physical Exam ED Vital Signs: Vital Signs - 24 hr 02/08/23 02:46 02/08/23 02:49 Pulse Rate 90 90 Respiratory Rate 16 16 Blood Pressure 136/70 136/70 Pulse Oximetry 99 99 Oxygen Delivery Method Room Air Room Air BMI result Body Mass Index 24.6 Const Other: Appearance: Alert. Oriented X3. Anxious. Eyes: Pupils equal, round and reactive to light. ENT: Pharynx normal. Neck: Normal inspection. Neck supple. No lymph nodes noted. No crepitus CVS: Normal heart rate and rhythm. Pulses normal. Normal S1 and S2 Respiratory: No respiratory distress. Breath sounds normal. No Wheezing. No rales Abdomen: Soft and nontender. No rigidity. No distention. Skin: Skin warm and dry. Normal skin color. Normal skin turgor. Extremities: No lower extremity edema. No Lacerations. No Rash Neuro: Oriented X 3. No motor deficit. No sensory deficit. Moving all extremities. No slurred speech. CN 2 through 12 grossly intact Psych: calm, cooperative, anxious Course Course Course Narrative: -basic labs pending Medications Administered Discontinued Medications Generic Name Dose Route Start Last Admin Trade Name Freq PRN Reason Stop Dose Admin Ketorolac Tromethamine 60 mg 02/08/23 02:46 02/08/23 02:52 Ketorolac Tromethamine 60 Mg/2 Ml Vial IM 02/08/23 02:47 60 mg ONCE ONE Administration Lorazepam 2 mg 02/08/23 02:38 02/08/23 02:44 Lorazepam 1 Mg Tablet PO 02/08/23 02:39 2 mg ONCE ONE Administration Medical Decision Making Medical Decision Making MDM Narrative: -patient was given 2 mg p.o. Ativan. -patient's symptoms likely related to benzodiazepine withdrawal. -I reviewed the [place] [facility], seems that patient has been using her lorazepam appropriately Lab Data 02/08/23 02:58 02/08/23 02:58 Labs: Lab Results 02/08/23 02/08/23 02/08/23 Range/Units 02:58 02:58 02:58 WBC 9.7 (4.8-10.8) X10*3/uL RBC 4.72 (4.20-5.50) X10*6/uL Hgb 13.1 (12.0-16.0) g/dl Hct 39.6 (37.0-47.0) % MCV 83.9 (80.0-98.0) fL MCH 27.8 (27.0-33.0) pg MCHC 33.1 (31.0-35.0) g/dl RDW 13.8 (11.0-16.0) % Plt Count 157 L (160-400) X10*3/uL MPV 12.9 H (9.4-12.3) fL Immature Gran % (Auto) 0.3 (0.0-0.4) % Neut % (Auto) 52.6 (45-73) % Lymph % (Auto) 37.5 (20-40) % [place] % (Auto) 8.6 (2-11) % Eos % (Auto) 0.7 (0-4) % Baso % (Auto) 0.3 (0-2) % Lymph # (Auto) 3.6 (1.2-4.9) X10*3/uL [place] # (Auto) 0.8 (0.1-1.2) X10*3/uL Eos # (Auto) 0.1 (0.0-0.4) X10*3/uL Baso # (Auto) 0.0 (0.0-0.2) X10*3/uL Abs Immat Gran (auto) 0.03 (0.00-0.03) X10*3/uL Absolute Neuts (auto) 5.1 (2.0-8.3) x10*3/uL Absolute Nucleated RBC 0.000 (0.0-0.012) X10*3/uL Nucleated RBC % (auto) 0.0 (0.0-0.2) /100WBC Smear Tech's Comments VERIFIED Sodium 141 (135-145) mmol/L Potassium 4.0 (3.3-5.1) mmol/L Chloride 108 (96-108) mmol/L Carbon Dioxide 23 (22-29) mmol/L Anion Gap 14 (12-20) BUN 11 (9-16) mg/dL Creatinine 0.74 (0.5-1.4) mg/dL Estim Creat Clear Calc 78.4 Estimated GFR > 60 Random Glucose 92 (60-115) mg/dL Calcium 9.2 (8.4-10.2) mg/dL Beta HCG, Quant < 2 mIU/mL Discharge Plan Discharge Clinical Impression: Benzodiazepine withdrawal, Anxiety Patient Disposition: Home, Self-Care Instructions: Acute Headache (DC), Tremors (ED) Additional Instructions: Please follow-up with your primary care physician tomorrow. If you have any worsening or new symptoms, please return to the emergency room or call 911 Prescriptions: New lorazepam 0.5 mg tablet 0.5 mg PO TID PRN (Reason: anxiety) Qty: 7 0RF No Action lorazepam 0.5 mg tablet 0.5 mg PO BID buspirone 15 mg tablet 15 mg PO DAILY 30 Days Qty: 30 3RF albuterol sulfate 90 mcg/actuation HFA aerosol inhaler 2 puff inhalation Q6H PRN (Reason: shortness of breath or wheezing) 30 Days Qty: 8.5 3RF meclizine 25 mg tablet 25 mg PO TID PRN (Reason: dizziness) Qty: 30 0RF venlafaxine 75 mg capsule,extended release 24hr 75 mg PO DAILY 30 Days Qty: 30 3RF amitriptyline 10 mg tablet 5 mg PO BEDTIME metoprolol succinate 25 mg tablet extended release 24 hr 25 mg PO DAILY divalproex 500 mg tablet,delayed release (DR/EC) 500 mg PO BID
[2023-02-08 02:49] VITALS: BP 136/70; PULSE 90; RESP 16; O2SAT 99
[2023-02-08] MEDS: Ketorolac Tromethamine 60 MG/2 ML VIAL IM (02:52)
--- NOTE | 2023-02-08 02:55 | PC.NURSE ---
Pt presents to ER with anxiety. Pt ran out of her lorazepam and has developed a headache, shakiness, and tearfulness. Pt is A&Ox4, GCS 15, able to answer questions appropriately. Pt is unable to see her doctor until Wednesday for a medication refill. Pt stated she is on lorazepam, depakote, and buspar for seizures and anxiety. Pt states that when she has a panic attack, she develops seizures. Pt has been medicated per NOV, blood is being drawn at this time. Dr Daugherty has seen the pt.
[2023-02-08 03:08] LABS: Basophils Percent Auto 0.3 % (0-2); Eosinophils Absolute Auto 0.1 X10*3/uL (0.0-0.4); Eosinophils Percent Auto 0.7 % (0-4); Hematocrit 39.6 % (37.0-47.0); Hemoglobin 13.1 g/dl (12.0-16.0); Imm Gran Abs Auto 0.03 X10*3/uL (0.00-0.03); Imm Gran Pct Auto 0.3 % (0.0-0.4); Lymphocytes Absolute Auto 3.6 X10*3/uL (1.2-4.9); Lymphocytes Percent Auto 37.5 % (20-40); MANUAL DIFF FLAG SCAN; Mean Corpuscular HGB Conc 33.1 g/dl (31.0-35.0); Mean Corpuscular Hemoglobin 27.8 pg (27.0-33.0); Mean Corpuscular Volume 83.9 fL (80.0-98.0); Mean Platelet Volume 12.9 fL (9.4-12.3); Monocytes Absolute Auto 0.8 X10*3/uL (0.1-1.2); Monocytes Percent Auto 8.6 % (2-11); Neutrophils Absolute Auto 5.1 x10*3/uL (2.0-8.3); Neutrophils Percent Auto 52.6 % (45-73); Platelet Count 157 X10*3/uL (160-400); Red Blood Count 4.72 X10*6/uL (4.20-5.50); Red Cell Distribution Width 13.8 % (11.0-16.0); SCAN SMEAR FLAG 1; White Blood Count 9.7 X10*3/uL (4.8-10.8)
[2023-02-08 03:09] LABS: PLT ABN DIST 1
[2023-02-08 03:10] LABS: SLIDE REVIEW VERIFIED
[2023-02-08 03:27] LABS: Anion Gap 14 (12-20); Blood Urea Nitrogen 11 mg/dL (9-16); Calcium 9.2 mg/dL (8.4-10.2); Carbon Dioxide 23 mmol/L (22-29); Chloride 108 mmol/L (96-108); Creatinine Clr Calc Pharmacy 78.4; Estimated Glomerular Filt Rate > 60; Glucose Random 92 mg/dL (60-115); Sodium 141 mmol/L (135-145)
[2023-02-08 03:32] LABS: HCG Quantitative < 2 mIU/mL
== END 2023-02-08 04:28 | disposition home or self-care (01) ==
PROVIDERS: Emergency Provider Emergency Medicine; PCP Internal Medicine
DX: F13.930 Sedative, hypnotic or anxiolytic use, unspecified with withdrawal, uncomplicated (principal); F41.9 Anxiety disorder, unspecified; R51.9 Headache, unspecified; Z79.899 Other long term (current) drug therapy
CPT/HCPCS: 36415; 80048; 84702; 85025; 96372; 99284; J1885

== ENCOUNTER → 2023-02-19 13:45 | Outpatient (BNVA) | payer OTHER, SELFPAY | PROVIDERS: PCP Internal Medicine; Referring Provider Internal Medicine; Visit Provider Nurse Practitioner Family | DX: R00.2 Palpitations (principal); R00.0 Tachycardia, unspecified; R07.9 Chest pain, unspecified; F41.9 Anxiety disorder, unspecified | CPT/HCPCS: 99212 ==

== ENCOUNTER 2023-03-16 05:58 | Day surgery (SDC) | payer OTHER, SELFPAY ==
--- NOTE | 2023-03-15 10:54 | HO.ANESPROP2 ---
Documented by User: Katty Oneal NP 03/15/23 10:56 HPI - Anesthesia Eval Consult details Narrative: 48yo F for Cystoscopy Hydrodistention of Bladder Cardiac optimized. s/p tubal PMFSH Active Problems Active Problems: All Active Problems (Updated 03/12/23 @ 11:21 by Megan Cabral, RN) Varicose veins of unspecified lower extremity with both ulcer of thigh and inflammation (Acute) Varicose veins of left lower extremity with inflammation (Acute) Lower abdominal pain (Acute) Suprapubic pain (Acute) Chest pain (Acute) Breast cancer screening by mammogram (Acute) Kidney stones (Acute) Recurrent UTI (Acute) Sinus tachycardia (Acute) Chronic migraine (Acute) Pelvic pain in female (Acute) Encounter for Medicare annual wellness exam (Acute) Depression (Acute) Anxiety (Acute) Epilepsy (Acute) Asthma (Acute) Nephrolithiasis (Acute) Past Medical History Medical History (Updated 03/12/23 @ 11:21 by Megan Cabral, RN) Anxiety Asthma Chronic migraine Depression Encounter for Medicare annual wellness exam Epilepsy Nephrolithiasis Palpitations Pelvic pain in female UTI (urinary tract infection) Family History Family History Father Hypertension Stroke CVD (cardiovascular disease) Mother CVD (cardiovascular disease) Hypertension Brother No problems noted. Sister No problems noted. Son No problems noted. Daughter No problems noted. Daughter No problems noted. Surgical History Surgical History History of tubal ligation Social History Social History Housing: Apartment Alcohol intake: never Patient Tobacco Use Status: Never used Tobacco e-Cigarette/Vaping Use: Never Used Second Hand Smoke Exposure: No service: No Current occupational status: disabled Cognitive needs: No Hearing needs: No Vision needs: No Meds Allergies Allergy/AdvReac Type Severity Reaction Status Date / Time aspirin [Aspirin] Allergy Severe RASH Verified 03/12/23 11:12 codeine [CODEINE] Allergy Severe ANAPHYLAXIS Verified 03/12/23 11:12 mayonnaise [MAYONNAISE] Allergy Mild UPSET Verified 03/12/23 11:12 STOMACH, RASH morphine [Morphine] Allergy Mild AGITATION/A Verified 03/12/23 11:12 NXIETY Penicillins Allergy Mild RASH Verified 03/12/23 11:12 cheese Allergy Unknown RASH Verified 03/12/23 11:12 latex [LATEX] Allergy Unknown RASH Verified 03/12/23 11:12 shrimp Allergy Shortness Verified 03/12/23 11:12 of Breath acetaminophen [From Tylenol] AdvReac Mild HEADACHES Verified 03/12/23 11:12 BUTTER FLAVOR Allergy Mild RASH, Uncoded 03/12/23 11:12 UPSET STOMACH Chocolate Allergy Mild UPSET Uncoded 03/12/23 11:12 STOMACH, RASH SPICY FOOD Allergy Mild UPSET Uncoded 03/12/23 11:12 STOMACH, RASH Home Medications Medication Instructions Recorded Confirmed Last Taken Type divalproex 500 mg tablet,delayed 500 mg PO BID 06/25/20 03/12/23 03/16/23 05:36 History release amitriptyline 10 mg tablet 5 mg PO BEDTIME 10/28/22 03/12/23 Unknown History metoprolol succinate 25 mg 25 mg PO DAILY 10/28/22 03/12/23 Unknown History tablet,extended release 24 hr Exam Exam Date and Time: March 15, 2023 1054 Pertinent Lab Results Pertinent Lab Results: Laboratory Tests 02/08/23 02/08/23 02:58 02:58 WBC 9.7 Hgb 13.1 Hct 39.6 Plt Count 157 L Sodium 141 Potassium 4.0 Chloride 108 Carbon Dioxide 23 BUN 11 Creatinine 0.74 Narrative Narrative: EKG 12/2022 showed normal sinus rhythm with sinus arrhythmia, heart rate 79.? Echocardiogram done 01/28/2023 showing EF 67%, no valve abnormalities no regional wall motion abnormalities.? An exercise stress test done on 01/28/2023 showed exercise 6 minutes achieving 94% MPHR with no chest discomfort and no EKG changes during exercise.? A Holter monitor done on 01/28/2023 for 2 days showed sinus rhythm with average heart rate 93, heart rate range 71-152, 30% of the time heart rate greater than 100, rare ectopy.? Assessment and Plan Assessment Anesthesia Assessment: Chart Reviewed Documented by User: Allyson Tran MD 03/16/23 14:06 [facility] Past Medical History Medical History (Updated 03/12/23 @ 11:21 by Megan Cabral RN) Anxiety Asthma Chronic migraine Depression Encounter for Medicare annual wellness exam Epilepsy Nephrolithiasis Palpitations Pelvic pain in female UTI (urinary tract infection) Family History Family History Father Hypertension Stroke CVD (cardiovascular disease) Mother CVD (cardiovascular disease) Hypertension Brother No problems noted. Sister No problems noted. Son No problems noted. Daughter No problems noted. Daughter No problems noted. Family history of problems with anesthesia: No Surgical History Surgical History History of tubal ligation History of Problems with Anesthesia: No Social History Social History Housing: Apartment Alcohol intake: never Patient Tobacco Use Status: Never used Tobacco e-Cigarette/Vaping Use: Never Used Second Hand Smoke Exposure: No service: No Current occupational status: disabled Cognitive needs: No Hearing needs: No Vision needs: No Meds Allergies Allergy/AdvReac Type Severity Reaction Status Date / Time aspirin [Aspirin] Allergy Severe RASH Verified 03/12/23 11:12 codeine [CODEINE] Allergy Severe ANAPHYLAXIS Verified 03/12/23 11:12 mayonnaise [MAYONNAISE] Allergy Mild UPSET Verified 03/12/23 11:12 STOMACH, RASH morphine [Morphine] Allergy Mild AGITATION/A Verified 03/12/23 11:12 NXIETY Penicillins Allergy Mild RASH Verified 03/12/23 11:12 cheese Allergy Unknown RASH Verified 03/12/23 11:12 latex [LATEX] Allergy Unknown RASH Verified 03/12/23 11:12 shrimp Allergy Shortness Verified 03/12/23 11:12 of Breath acetaminophen [From Tylenol] AdvReac Mild HEADACHES Verified 03/12/23 11:12 BUTTER FLAVOR Allergy Mild RASH, Uncoded 03/12/23 11:12 UPSET STOMACH Chocolate Allergy Mild UPSET Uncoded 03/12/23 11:12 STOMACH, RASH SPICY FOOD Allergy Mild UPSET Uncoded 03/12/23 11:12 STOMACH, RASH Home Medications Medication Instructions Recorded Confirmed Last Taken Type divalproex 500 mg tablet,delayed 500 mg PO BID 06/25/20 03/12/23 03/16/23 05:36 History release amitriptyline 10 mg tablet 5 mg PO BEDTIME 10/28/22 03/12/23 Unknown History metoprolol succinate 25 mg 25 mg PO DAILY 10/28/22 03/12/23 Unknown History tablet,extended release 24 hr Exam Airway Mallampati Class: I TM Dist: >3cm Neck ROM: Full Loose/Missing/Broken Teeth: No Heart: rr Lungs: cta Assessment and Plan Assessment Anesthesia Assessment: Anesthesia Plan Discussed Final Anesthetic Review Family History of Problems with Anesthesia: No History of Problems with Anesthesia: No NPO: Yes ASA Class: II Final Preanesthetic Review: No Changes in Pt Med Stat, Meds/Allgs Chart Reviewed, Consent Obtained/Reviewed and Anes Risks/Benef Reviewed Patient Risk: Low Procedure Risk: Low Anesthetic Plan Anesthetic Plan: GA, MAC: and Agree w/ Assess. and Plan Disposition: Standard PACU
--- NOTE | 2023-03-15 17:35 | MHC.SHP ---
Pre-Procedural Eval Section A Date of Service: 03/16/23 The patient is an INPATIENT: No The History & Physical has been completed within 30 days and I have reviewed it.: No Section B Chief Complaint: Pelvic and perineal pain Details of Present Illness: Nida is a 48 year old female who is here for evaluation due to recurrent UTI's She has been to the ED several times for UTI symptoms, and complains of pelvic pain, lower abdominal area. Review of chart: ED visits--- 08/28/22, 03/12/2022, 01/29/2022, 11/16/2021, 08/31/2021 Urine culture 03/11/2022-no growth Urine culture 08/28/2022 less than 10,000 colonies Urine culture 08/31/[address] [facility] 03/12/2022 reviewed--right kidney few tiny stones 1-2 mm lower pole, mildly thick-walled bladder question cystitis I have discussed further evaluate with cystoscopy hydrodistension. The patient was seen by Cardiology due to atypical chest pain, palpitations and cleared for scheduled procedure. Relevant Family History (Specify if Yes): No Allergies: Allergies Allergy/AdvReac Type Severity Reaction Status Date / Time aspirin [Aspirin] Allergy Severe RASH Verified 03/12/23 11:12 codeine [CODEINE] Allergy Severe ANAPHYLAXIS Verified 03/12/23 11:12 mayonnaise [MAYONNAISE] Allergy Mild UPSET Verified 03/12/23 11:12 STOMACH, RASH morphine [Morphine] Allergy Mild AGITATION/A Verified 03/12/23 11:12 NXIETY Penicillins Allergy Mild RASH Verified 03/12/23 11:12 cheese Allergy Unknown RASH Verified 03/12/23 11:12 latex [LATEX] Allergy Unknown RASH Verified 03/12/23 11:12 shrimp Allergy Shortness Verified 03/12/23 11:12 of Breath acetaminophen [From Tylenol] AdvReac Mild HEADACHES Verified 03/12/23 11:12 BUTTER FLAVOR Allergy Mild RASH, Uncoded 03/12/23 11:12 UPSET STOMACH Chocolate Allergy Mild UPSET Uncoded 03/12/23 11:12 STOMACH, RASH SPICY FOOD Allergy Mild UPSET Uncoded 03/12/23 11:12 STOMACH, RASH Review of Systems Review of Systems Comment: 10 point ROS negative other than stated in HPI Exam Surgical H&P Exam: Normal: HEENT, Normal: Lungs, Normal: Skin and Normal: Neurological and Significant Findings: Heart (palpitations) Plan Diagnosis/Plan: Unchanged I have reviewed the history and physical and performed a pertinent physical examination on my patient. No changes have occurred unless specified. Cystoscopy Hydrodistension, possible bladder biopsy Time Spent With Patient Time: Total time managing care of this patient today ____ minutes.
[2023-03-16] VITALS (7 sets, daily range): BP systolic 100–116; BP diastolic 57–73; PULSE 67–97; RESP 16–18; TEMP 36.4–36.6; O2SAT 97–99; BMI 24.6
[2023-03-16] MEDS: Lactated Ringers 1,000 ML 100 ML IVCONT (06:35)
[2023-03-16] MEDS: Albuterol Sulfate (0.083%) 2.5 MG/3 ML VIAL.NEB INHALE (07:11)
--- NOTE | 2023-03-16 08:04 | W.PM.OPN ---
Operative Note Operative Note Date of Service: 03/16/23 Narrative: PREOP DIAGNOSIS: recurrent UTI's, pelvic pain, microscopic hematuria POSTOP DIAGNOSIS: recurrent UTI's, pelvic pain, microscopic hematuria, bladder wall thickening PROCEDURE: CYSTOSCOPY HYDRODISTENTION Anethesia: General Surgeon: Dr. Marbella Ellington Details of procedure: The patient was brought into the operating room placed on the OR table in supine position. 2 g of Ancef IV. General anesthesia was administered. The patient was repositioned into lithotomy position, prepped and draped in the usual sterile fashion. Time-out was done per protocol. A 22 fr cystoscope was placed transurethrally into the bladder. Urine was drained from the bladder measuring 50 mL.The right and left ureteral orifices were visualized. The entire bladder was visualized. There were no suspicious bladder lesions seen. There were mild/moderate trabeculations noted. The bladder was filled with sterile water at 80 cm of water pressure under gravity. The bladder was distended for 2 minutes. Bladder capacity measured 600 mL. Revisualization of the bladder, noted no glomerulations. No Cortez ulcerations. The bladder was refilled with sterile water again at 80 cm of water pressure under gravity. The bladder was distended for 3 minutes. The fluid was drained from the bladder and measured 625 mL. The cystoscope was removed. 2% lidocaine urojet was passed transurethrally, Solution of (1% lidocaine plain, 15 mL, 0.5 % Marcaine 15 mL placed transurethrally with a 16 fr red rubber catheter. The patient was brought out of anesthesia and taken to recovery in stable condition. Complications: None Drains: none
[2023-03-16] MEDS: Phenazopyridine HCL 100 MG TABLET 200 MG PO (09:05)
== END 2023-03-16 10:13 | disposition home or self-care (01) ==
PROVIDERS: PCP Internal Medicine; Visit Provider Urology
PROC: 0T7B7ZZ Dilation of Bladder, Via Natural or Artificial Opening (ICD-10-PCS; CPT 52000; principal; 2023-03-16 07:30)
DX: R10.2 Pelvic and perineal pain (principal); N39.0 Urinary tract infection, site not specified; N32.89 Other specified disorders of bladder; R31.29 Other microscopic hematuria; N20.0 Calculus of kidney; Z87.440 Personal history of urinary (tract) infections; J45.909 Unspecified asthma, uncomplicated; G40.909 Epilepsy, unspecified, not intractable, without status epilepticus; F32.A Depression, unspecified; G43.809 Other migraine, not intractable, without status migrainosus; F41.1 Generalized anxiety disorder; Z79.899 Other long term (current) drug therapy; Z88.0 Allergy status to penicillin; Z88.8 Allergy status to other drugs, medicaments and biological substances; Z91.040 Latex allergy status; Z98.51 Tubal ligation status
CPT/HCPCS: 52000; 87086; 94640; J0690; J1643; J2250; J2405; J2795; J3010

== ENCOUNTER 2023-04-08 15:16 | Emergency (ER) | payer OTHER, SELFPAY ==
--- NOTE | ~2023-04-08 | XR_ITS ---
EXAMINATION: XR CHEST CLINICAL INFORMATION: Headache and dizziness. COMPARISON: Chest radiograph 01/29/2022. TECHNIQUE: 2 views of the chest were obtained. FINDINGS: Normal appearance of the cardiomediastinal silhouette. No focal airspace opacity, pleural effusion or pneumothorax. Right upper quadrant surgical clips. No acute osseous findings. XR/XR chest 2V IMPRESSION: No acute cardiopulmonary findings.
--- NOTE | ~2023-04-08 | CT_ITS ---
EXAMINATION: CT HEAD WITHOUT CONTRAST CLINICAL INFORMATION: tingling to tongue/headache/dizziness COMPARISON: CT head 08/20/2020 TECHNIQUE: Contiguous axial imaging was performed from the skull base to vertex without intravenous administration of contrast. Coronal and sagittal reformatted images are performed at the CT scanner. [This CT examination was performed using dose optimization techniques as appropriate, variously including the following: *Automated exposure control *Adjustment of mA and/or kV according to patient size (this includes techniques or standardized protocols for targeted exams where dose is matched to indication/reason for exam; i.e. extremities or head) *Use of iterative reconstruction technique] DLP: 560 mGy-cm. FINDINGS: There is no evidence of acute intracranial hemorrhage or territorial infarction. No abnormal mass-effect or midline shift is seen. Hoffman to white matter differentiation is well preserved. No extra-axial fluid collections are identified. The ventricles are normal in size. There is no abnormal attenuation within the brain parenchyma. There is no osseous abnormality. The mastoid air cells and visualized portions of the paranasal sinuses are well-aerated. CT/CT head/brain wo IV con IMPRESSION: No acute intracranial pathology.
[2023-04-08 15:20] VITALS: BP 125/90; PULSE 85; RESP 18; TEMP 36.3; O2SAT 99; BMI 25.0
--- NOTE | 2023-04-08 15:21 | ED_ITS ---
HPI - General Adult General Chief complaint: General Medical Stated complaint: headache, swollen tongue Time Seen by Provider: 04/08/23 15:54 Source: patient Mode of arrival: ambulatory Limitations: no limitations History of Present Illness HPI narrative: 48-year-old female with a past medical history of anxiety, seizure disorder on Depakote and vertigo who is presenting to the ER with significant other present ing to the ER with complaints of dizziness, headache to the right side of her head and tongue tingling that started around 11:00 prior to arrival with increased anxiety. She reports that she has not been sleeping well and has had insomnia and she is unsure why. She normally takes meclizine although she does not have any more meclizine at her house. She reports that this feels like her normal headaches and the dizziness that she normally gets for her vertigo and tension-type headaches. Although she is unsure why she has the tingling to her tongue which is new to her. She denies any change in vision, facial paresthesias or paresthesias anywhere else in the body, focal weakness, chest pain or shortness of breath, recent falls or trauma, she denies any other symptoms complaints or concerns at this time. MD complaint: Dizziness, headache and tongue tingling with increased anxiety Related Data Home Medications Medication Instructions Recorded Confirmed divalproex 500 mg tablet,delayed 500 mg PO BID 06/25/20 03/12/23 release amitriptyline 10 mg tablet 5 mg PO BEDTIME 10/28/22 03/12/23 metoprolol succinate 25 mg 25 mg PO DAILY 10/28/22 03/12/23 tablet,extended release 24 hr Previous Rx's Medication Instructions Recorded albuterol sulfate 90 mcg/actuation 2 puff inhalation Q6H PRN 10/28/22 aerosol inhaler shortness of breath or wheezing 30 days #8.5 grams meclizine 25 mg tablet 25 mg PO TID PRN dizziness #30 tabs 10/28/22 venlafaxine 75 mg capsule,extended 75 mg PO DAILY 30 days #30 caps 10/28/22 release 24 hr lorazepam 0.5 mg tablet 0.5 mg PO TID PRN anxiety #7 tabs 02/08/23 meclizine 25 mg tablet 25 mg PO DAILY PRN dizziness #20 04/08/23 tabs Allergies Allergy/AdvReac Type Severity Reaction Status Date / Time aspirin [Aspirin] Allergy Severe RASH Verified 04/08/23 15:20 codeine [CODEINE] Allergy Severe ANAPHYLAXIS Verified 04/08/23 15:20 mayonnaise [MAYONNAISE] Allergy Mild UPSET Verified 04/08/23 15:20 STOMACH, RASH morphine [Morphine] Allergy Mild AGITATION/A Verified 04/08/23 15:20 NXIETY Penicillins Allergy Mild RASH Verified 04/08/23 15:20 cheese Allergy Unknown RASH Verified 04/08/23 15:20 latex [LATEX] Allergy Unknown RASH Verified 04/08/23 15:20 shrimp Allergy Shortness Verified 04/08/23 15:20 of Breath acetaminophen [From Tylenol] AdvReac Mild HEADACHES Verified 04/08/23 15:20 BUTTER FLAVOR Allergy Mild RASH, Uncoded 04/08/23 15:20 UPSET STOMACH Chocolate Allergy Mild UPSET Uncoded 04/08/23 15:20 STOMACH, RASH SPICY FOOD Allergy Mild UPSET Uncoded 04/08/23 15:20 STOMACH, RASH Review of Systems Review of Systems: Constitutional : No Weight loss, No Fever, No Chills, No Night Sweats, + Fatigue, + Malaise ENT/Mouth : No Hearing loss, No Ear Pain, No Nasal Congestion, No Sinus Pain, No Hoarseness, No sore throat, No Rhinorrhea, No Swallowing Difficulty Eyes: No Eye Pain, No Swelling, No Redness, No Foreign Body, No Discharge, No Vision Changes Cardiovascular : No Chest Pain, No SOB, No Dyspnea on Exertion, No Orthopnea, No Edema, No Palpitations Respiratory : No Cough, No Sputum, No Wheezing, No Smoke Exposure, No Dyspnea Gastrointestinal : No Nausea, No Vomiting, No Diarrhea, No Constipation, No abdominal Pain, No Hematochezia, No Melena Genitourinary : no irregular bleeding, No Dysuria, No Urinary Frequency, No Hematuria, No Urinary Incontinence, No Urgency, No Flank Pain, No Urinary Flow Changes, No Hesitancy Musculoskeletal : No joint pain, No Myalgias, No Joint Swelling Skin : No Skin Lesions, No rash Neuro : No Weakness, No Numbness, + tongue Paresthesias, No Loss of Consciousness, + Dizziness, + Headache Psych : No Anxiety/Panic, No Depression, No SI/HI/AH/VH, No Social Issues, Heme/Lymph: No Bruising, No Bleeding,No Lymphadenopathy Endocrine : No Polyuria, No Polydipsia, No Temperature Intolerance Yes all other systems are reviewed and are negative [facility] Past Medical History Attestation statement: The following information was validated with the patient. Source: old records reviewed, obtained from family and nursing notes reviewed Medical History Anxiety Asthma Chronic migraine Depression Encounter for Medicare annual wellness exam Epilepsy Nephrolithiasis Palpitations Pelvic pain in female UTI (urinary tract infection) Surgical History History of tubal ligation Family History Family History Father Hypertension Stroke CVD (cardiovascular disease) Mother CVD (cardiovascular disease) Hypertension Brother No problems noted. Sister No problems noted. Son No problems noted. Daughter No problems noted. Daughter No problems noted. Social History Social History Housing: Apartment Alcohol intake: never Patient Tobacco Use Status: Never used Tobacco e-Cigarette/Vaping Use: Never Used Second Hand Smoke Exposure: No Advance Directives: No Advance Directives Information Provided: Yes service: No Current occupational status: disabled Cognitive needs: No Hearing needs: No Vision needs: No Physical Exam ED Vital Signs: Vital Signs - 24 hr 04/08/23 15:20 Temperature 97.3 F Pulse Rate 85 Respiratory Rate 18 Blood Pressure 125/90 H Pulse Oximetry 99 Oxygen Delivery Method Room Air BMI result Body Mass Index 25.0 vital signs are all within normal limits. Appearance: Alert. Oriented X3. No acute distress. Head: Normal external exam. Normocephalic. Atraumatic. Able to rotate head bilaterally. Eyes: PERRLA. EOMI. No nystagmus noted. Conjunctiva and sclera normal. Eyelids normal. Corneal reflex normal. ENT: EAC normal. TM's Normal. Hearing normal. Pharynx normal. Uvula midline. tongue midline. Moist mucous membranes. No trismus noted. No drooling noted. No muffled voice noted. No nystagmus noted. Neck: Normal inspection. Neck supple. FROM. No adenopathy. Trachea midline. Thyroid Normal. No meningeal signs. No neck mass noted. CVS: Normal heart rate and rhythm. Heart sound normal. No murmurs noted. Pulses normal throughout. Respiratory: No respiratory distress. Painless inspiration. Breath sounds normal. No wheezes/rales/rhonchi noted. Chest nontender. No accessory muscle usage noted or decreased air movement noted. Abdomen: Soft and nontender. Bowel sounds normal in all 4 quadrants. No distention noted. No organomegaly noted. No visible injury noted. Back: No CVA tenderness. Full range of motion noted. Skin: Skin warm and dry. Normal skin color. Normal skin turgor. No rash es/lesions/lacerations noted. Extremities: No lower extremity edema. Extremities exhibit normal range of motion. Extremities nontender. Able to shrug shoulders bilaterally and keep up against resistance. Neuro: Oriented X 3. No motor deficit. No sensory deficit. Reflexes normal. Moving all extremities. No focal motor deficits. Cranial nerves II-XI intact bilaterally. Facial strength normal. Normal cognition. Speech normal. Gait normal. Strength 5/5 throughout. No pronator drift. No tremor noted. No fasciculations noted. No rigidity noted. Muscle tone normal throughout. No asterixis noted. Laotxd-co-vazw test normal. Heel to mancilla test normal. Tandem gait normal. Does not sway with eyes open. Romberg test negative. Rapid alternating movement upper extremity normal. Rapid alternating movement lower extremity normal. Hand drop from overhead Misses face. NIHSS score 0. Course Course Course Narrative: This is an RME: Additional HPI, ROS, PE not included below will be deferred to primary provider. This is a [id number]-female presenting to the ER with complaints of tongue swe lling since 11:00 a.m. this morning. Patient reports that she ate ham sandwich and follow up as though her tongue was swelling. She is feeling anxious. On exam, no tongue swelling noted, airway is widely patent, speaking in full sentences, under no acute distress. Lungs are clear to auscultation bilaterally, no stridor. Vital signs stable. Reevaluation(s) Reevaluation #1: Patient presenting with tingling, headache, dizziness and increased anxiety that started around 11:00. Reports that she has seizure disorders although did not have an actual seizure. Taking her Depakote as prescribed. Patient most likely exacerbation of her vertigo versus or tension headaches and anxiety. Not consistent with CVA, ACS, subarachnoid hemorrhages, or seizure at this time. Patient has a normal steady gait. NIH SS score 0. Patient has non disabling symptoms therefore she would not be a tPA candidate. Labs reviewed and patient's chloride 109. Anion gap 9. Calcium 10.5. Total CPK 169. Otherwise all other labs are within normal limits. EKG normal sinus rhythm with short HI interval ventricular rate of 100 otherwise no acute ischemic change are noted. CT scan of brain within normal limits no acute processes noted. Patient was given Reglan, Benadryl, Fioricet and Decadron reports symptomatic relief of all her symptoms. She continues to have a normal neuro exam. Therefore at this time will refill her meclizine and instructed return if any new or worsening symptoms follow up with primary care provider. Patient understands agrees with this plan. Medications Administered Discontinued Medications Generic Name Dose Route Start Last Admin Trade Name Freq PRN Reason Stop Dose Admin Acetaminophen/Butalbital/Caffeine 1 tab 04/08/23 18:48 04/08/23 19:06 Butalb/Acetamin/Caff 50/325/40 Tablet PO 04/08/23 18:49 1 tab ONCE ONE Administration Dexamethasone Sodium Phosphate 10 mg 04/08/23 18:47 04/08/23 19:08 Dexamethasone Sod Phosphate 10 Mg/Ml Vial IVPUSH 04/08/23 18:48 10 mg ONCE ONE Administration Diphenhydramine HCl 50 mg 04/08/23 18:47 04/08/23 19:06 Diphenhydramine Hcl 50 Mg/Ml Vial IVPUSH 04/08/23 18:48 50 mg ONCE ONE Administration Sodium Chloride 1,000 mls @ 999 mls/hr 04/08/23 17:15 04/08/23 18:22 Ns IVCONT 04/08/23 18:15 Infused .Q1H1M LJ Infusion Metoclopramide HCl 10 mg 04/08/23 18:47 04/08/23 19:10 Metoclopramide Hcl 10 Mg/2 Ml Vial IVPUSH 04/08/23 18:48 10 mg ONCE ONE Administration Medical Decision Making Medical Decision Making MDM Narrative: see course Differential Diagnosis Differential Diagnoses: The differential diagnosis associated with the presentation includes see course Lab Data [facility] Lab Attestation statement: I reviewed the patient's lab results. 04/08/23 16:49 04/08/23 16:49 Labs: Lab Results 04/08/23 04/08/23 04/08/23 Range/Units 16:49 16:49 16:49 WBC 8.0 (4.8-10.8) X10*3/uL RBC 5.04 (4.20-5.50) X10*6/uL Hgb 14.1 (12.0-16.0) g/dl Hct 43.1 (37.0-47.0) % MCV 85.5 (80.0-98.0) fL MCH 28.0 (27.0-33.0) pg MCHC 32.7 (31.0-35.0) g/dl RDW 13.7 (11.0-16.0) % Plt Count 183 (160-400) X10*3/uL MPV 13.8 H (9.4-12.3) fL Immature Gran % (Auto) Cancelled Neut % (Auto) Cancelled Lymph % (Auto) Cancelled Mcmullen % (Auto) Cancelled Eos % (Auto) Cancelled Baso % (Auto) Cancelled Lymph # (Auto) Cancelled Mcmullen # (Auto) Cancelled Eos # (Auto) Cancelled Baso # (Auto) Cancelled Abs Immat Gran (auto) Cancelled Absolute Neuts (auto) Cancelled Absolute Nucleated RBC 0.000 (0.0-0.012) X10*3/uL Nucleated RBC % (auto) 0.0 (0.0-0.2) /100WBC Neutrophils % (Manual) 60 (45-73) % Band Neutrophils % 0 L (3-5) % Lymphocytes % (Manual) 37 (20-40) % Monocytes % (Manual) 2 (2-11) % Basophils % (Manual) 1 (0-2) % Abs Neuts (Manual) 4.8 (2.0-8.3) X10*3/uL Lymphocytes # (Manual) 3.0 (1.2-4.9) X10*3/uL Monocytes # (Manual) 0.2 (0.1-1.2) X10*3/uL Basophils # (Manual) 0.1 (0.0-0.2) X10*3/uL Platelet Estimate NORMAL (NORMAL) Plt Morphology Comment NORMAL RBC Morphology NORMAL PT 11.0 (10.0-13.1) SEC INR 1.0 (0.9-1.1) Sodium 142 (135-145) mmol/L Potassium 4.2 (3.3-5.1) mmol/L Chloride 109 H (96-108) mmol/L Carbon Dioxide 28 (22-29) mmol/L Anion Gap 9 L (12-20) BUN 11 (9-16) mg/dL Creatinine 0.81 (0.5-1.4) mg/dL Estim Creat Clear Calc 71.4 Estimated GFR > 60 Random Glucose 86 (60-115) mg/dL Calcium 10.5 H D (8.4-10.2) mg/dL Magnesium 2.1 (1.6-2.6) mg/dL Total Bilirubin 0.3 (0.0-1.0) mg/dL AST 21 (5-31) U/L ALT 16 (0-31) U/L Alkaline Phosphatase 64 (39-117) U/L Total Creatine Kinase 169 H (26-140) U/L Troponin I High Sens (<3.5-17.0) ng/L Total Protein 7.8 (6.5-8.0) g/dL Albumin 4.3 (3.5-5.0) g/dL Valproic Acid (50.0-100.0) mcg/mL 04/08/23 04/08/23 Range/Units 16:49 16:49 WBC (4.8-10.8) X10*3/uL RBC (4.20-5.50) X10*6/uL Hgb (12.0-16.0) g/dl Hct (37.0-47.0) % MCV (80.0-98.0) fL MCH (27.0-33.0) pg MCHC (31.0-35.0) g/dl RDW (11.0-16.0) % Plt Count (160-400) X10*3/uL MPV (9.4-12.3) fL Immature Gran % (Auto) Neut % (Auto) Lymph % (Auto) Mcmullen % (Auto) Eos % (Auto) Baso % (Auto) Lymph # (Auto) Mcmullen # (Auto) Eos # (Auto) Baso # (Auto) Abs Immat Gran (auto) Absolute Neuts (auto) Absolute Nucleated RBC (0.0-0.012) X10*3/uL Nucleated RBC % (auto) (0.0-0.2) /100WBC Neutrophils % (Manual) (45-73) % Band Neutrophils % (3-5) % Lymphocytes % (Manual) (20-40) % Monocytes % (Manual) (2-11) % Basophils % (Manual) (0-2) % Abs Neuts (Manual) (2.0-8.3) X10*3/uL Lymphocytes # (Manual) (1.2-4.9) X10*3/uL Monocytes # (Manual) (0.1-1.2) X10*3/uL Basophils # (Manual) (0.0-0.2) X10*3/uL Platelet Estimate (NORMAL) Plt Morphology Comment RBC Morphology PT (10.0-13.1) SEC INR (0.9-1.1) Sodium (135-145) mmol/L Potassium (3.3-5.1) mmol/L Chloride (96-108) mmol/L Carbon Dioxide (22-29) mmol/L Anion Gap (12-20) BUN (9-16) mg/dL Creatinine (0.5-1.4) mg/dL Estim Creat Clear Calc Estimated GFR Random Glucose (60-115) mg/dL Calcium (8.4-10.2) mg/dL Magnesium (1.6-2.6) mg/dL Total Bilirubin (0.0-1.0) mg/dL AST (5-31) U/L ALT (0-31) U/L Alkaline Phosphatase (39-117) U/L Total Creatine Kinase (26-140) U/L Troponin I High Sens < 2.7 (<3.5-17.0) ng/L Total Protein (6.5-8.0) g/dL Albumin (3.5-5.0) g/dL Valproic Acid 61.2 (50.0-100.0) mcg/mL Independent Interpretation I performed an independent interpretation of an: Plain X-Ray and CT Scan Interpretation: Chest x-ray and CT scan of brain reviewed by myself agreeable with radiologist reports no acute findings Radiology Impression Discussion of test interpretation with radiology: I have reviewed the radiologist's reading. Radiologist Impression: FINDINGS: There is no evidence of acute intracranial hemorrhage or territorial infarction. No abnormal mass-effect or midline shift is seen. Hoffman to white matter differentiation is well preserved. No extra-axial fluid collections are identified. The ventricles are normal in size. There is no abnormal attenuation within the brain parenchyma. There is no osseous abnormality. The mastoid air cells and visualized portions of the paranasal sinuses are well-aerated. ? CT/CT head/brain wo IV con IMPRESSION: No acute intracranial pathology. FINDINGS: Normal appearance of the cardiomediastinal silhouette. No focal airspace opacity, pleural effusion or pneumothorax. Right upper quadrant surgical clips. No acute osseous findings. XR/XR chest 2V IMPRESSION: No acute cardiopulmonary findings. ? ? Independent Historian Clinical information obtained from an independent historian. History obtained from or confirmed by: Spouse External Record Review External record reviewed: Inpatient record, Office record, Outpatient record, Prior outpatient labs, Prior outpatient radiology, Primary care record and Outside ED record all prior lab/imaging /EKG and notes that our system reviewed by myself Prescription Management I considered prescription management with: Other Chronic Conditions Patient?s care impacted by: Other ( seizure disorder, anxiety, headaches and vertigo) Social Determinants Patient?s care significantly limited by Social Determinants of Health including: Low income and Other Social Determinant of Health Critical Care Time Critical Care Time Critical Care Time: Yes Total Critical Care Time: 60 Attestation: I personally attest to this time spent taking care of the patient Discharge Plan Discharge Clinical Impression: Headache, Paresthesia of tongue, Dizziness Patient Disposition: Home, Self-Care Instructions: Dizziness (ED), General Headache (ED) Prescriptions: New meclizine 25 mg tablet 25 mg PO DAILY PRN (Reason: dizziness) Qty: 20 0RF No Action lorazepam 0.5 mg tablet 0.5 mg PO TID PRN (Reason: anxiety) Qty: 7 0RF albuterol sulfate 90 mcg/actuation HFA aerosol inhaler 2 puff inhalation Q6H PRN (Reason: shortness of breath or wheezing) 30 Days Qty: 8.5 3RF meclizine 25 mg tablet 25 mg PO TID PRN (Reason: dizziness) Qty: 30 0RF venlafaxine 75 mg capsule,extended release 24hr 75 mg PO DAILY 30 Days Qty: 30 3RF amitriptyline 10 mg tablet 5 mg PO BEDTIME metoprolol succinate 25 mg tablet extended release 24 hr 25 mg PO DAILY divalproex 500 mg tablet,delayed release (DR/EC) 500 mg PO BID Referrals: Kwame Sutton MD [Primary Care Provider] - 1 day
--- NOTE | 2023-04-08 16:37 | ECG_ITS ---
Test Reason : SOB Blood Pressure : / mmHG Vent. Rate : 100 BPM Atrial Rate : 100 BPM P-R Int : 108 ms QRS Dur : 072 ms QT Int : 352 ms P-R-T Axes : 052 030 028 degrees QTc Int : 454 ms Sinus rhythm with short CT Otherwise normal ECG When compared with ECG of 29-JAN-2022 11:04, No significant change was found Referred By: Minda Salinas Electronically Signed By:Matteo Hill
[2023-04-08 16:56] LABS: Hematocrit 43.1 % (37.0-47.0); Hemoglobin 14.1 g/dl (12.0-16.0); Mean Corpuscular HGB Conc 32.7 g/dl (31.0-35.0); Mean Corpuscular Volume 85.5 fL (80.0-98.0); Mean Platelet Volume 13.8 fL (9.4-12.3); Platelet Count 183 X10*3/uL (160-400); Red Blood Count 5.04 X10*6/uL (4.20-5.50); Red Cell Distribution Width 13.7 % (11.0-16.0)
[2023-04-08 16:57] LABS: PLT ABN DIST 1; WBC ABN SCTR FOR CBC 1
[2023-04-08 17:10] LABS: Valproate 61.2 mcg/mL (50.0-100.0)
[2023-04-08 17:17] LABS: Alanine Aminotransferase 16 U/L (0-31); Albumin Level 4.3 g/dL (3.5-5.0); Alkaline Phosphatase 64 U/L (39-117); Anion Gap 9 (12-20); Aspartate Amino Transferase 21 U/L (5-31); Bilirubin Total 0.3 mg/dL (0.0-1.0); Blood Urea Nitrogen 11 mg/dL (9-16); Calcium 10.5 mg/dL (8.4-10.2); Carbon Dioxide 28 mmol/L (22-29); Chloride 109 mmol/L (96-108); Creatinine Clr Calc Pharmacy 71.4; Estimated Glomerular Filt Rate > 60; Glucose Random 86 mg/dL (60-115); Magnesium 2.1 mg/dL (1.6-2.6); Potassium 4.2 mmol/L (3.3-5.1); Sodium 142 mmol/L (135-145); Total Protein 7.8 g/dL (6.5-8.0)
[2023-04-08 17:21] LABS: Basophils Percent Manual 1 % (0-2); Lymphocytes Percent Manual 37 % (20-40); Monocytes Percent Manual 2 % (2-11); Neutrophils Percent Manual 60 % (45-73)
[2023-04-08 17:22] LABS: Band Neutrophils Percent 0 % (3-5); Platelet Estimate NORMAL (NORMAL); Platelet Morphology Comment NORMAL; RBC Morphology NORMAL
[2023-04-08] MEDS: 0.9 % Sodium Chloride 1,000 ML 999 ML IVCONT (17:25)
[2023-04-08 17:26] LABS: Troponin-I High Sensitivity < 2.7 ng/L (<3.5-17.0)
[2023-04-08 18:52] LABS: Basophils Abs Manual 0.1 X10*3/uL (0.0-0.2); Monocytes Absolute Manual 0.2 X10*3/uL (0.1-1.2); Neutrophils Absolute Manual 4.8 X10*3/uL (2.0-8.3)
[2023-04-08] MEDS: Butalb/Acetamin/Caff 50/325/40 TABLET 1 TAB PO (19:06)
[2023-04-08] MEDS: diphenhydrAMINE HCL 50 MG/ML VIAL IVPUSH (19:06)
[2023-04-08] MEDS: dexAMETHasone sod phosphate 10 MG/ML VIAL IVPUSH (19:08)
[2023-04-08] MEDS: Metoclopramide HCl 10 MG/2 ML VIAL IVPUSH (19:10)
--- NOTE | 2023-04-08 19:18 | PC.NURSE ---
Pt medicated per NOV, currently appears in NAD. Pt states she feels very drowsy, and that she is intermittently feeling as though she cannot breath & is very anxious. VSS. WCTA
== END 2023-04-08 20:02 | disposition home or self-care (01) ==
PROVIDERS: Physician Assistant Medical; Emergency Provider Emergency Medicine; PCP Internal Medicine
DX: R51.9 Headache, unspecified (principal); R20.2 Paresthesia of skin; R42 Dizziness and giddiness; F41.9 Anxiety disorder, unspecified; G47.00 Insomnia, unspecified; G40.909 Epilepsy, unspecified, not intractable, without status epilepticus; R29.700 NIHSS score 0; Z87.440 Personal history of urinary (tract) infections; Z79.899 Other long term (current) drug therapy
CPT/HCPCS: 36415; 70450; 71046; 80053; 80164; 82550; 83735; 84484; 85007; 85027; 85610; 93005; 96361; 96374; 96375; 99284; J1100; J1200; J2765

== ENCOUNTER → 2023-04-08 16:37 | Outpatient (BNV) | payer OTHER, SELFPAY | PROVIDERS: Emergency Provider Emergency Medicine; PCP Internal Medicine; Visit Provider Internal Medicine Cardiovascular Disease | DX: R06.02 Shortness of breath (principal) | CPT/HCPCS: 93010 ==

== ENCOUNTER 2023-04-14 11:20 | Outpatient (AMB) | payer OTHER, SELFPAY ==
--- NOTE | 2023-04-14 06:59 | MHC.OFFVIS ---
Intake Intake Visit Reasons: 4w follow up Allergies aspirin [Aspirin] Allergy (Severe, Verified 04/14/23 11:55) RASH codeine [CODEINE] Allergy (Severe, Verified 04/14/23 11:55) ANAPHYLAXIS mayonnaise [MAYONNAISE] Allergy (Mild, Verified 04/14/23 11:55) UPSET STOMACH, RASH morphine [Morphine] Allergy (Mild, Verified 04/14/23 11:55) AGITATION/ANXIETY Penicillins Allergy (Mild, Verified 04/14/23 11:55) RASH cheese Allergy (Unknown, Verified 04/14/23 11:55) RASH latex [LATEX] Allergy (Unknown, Verified 04/14/23 11:55) RASH shrimp Allergy (Verified 04/14/23 11:55) Shortness of Breath acetaminophen [From Tylenol] Adverse Reaction (Mild, Verified 04/14/23 11:55) HEADACHES BUTTER FLAVOR Allergy (Mild, Uncoded 04/14/23 11:55) RASH, UPSET STOMACH Chocolate Allergy (Mild, Uncoded 04/14/23 11:55) UPSET STOMACH, RASH SPICY FOOD Allergy (Mild, Uncoded 04/14/23 11:55) UPSET STOMACH, RASH HPI HPI Comments History of Present Illness Details Nida is a 48-year-old female who presents today to the office for an?evaluation due to recurrent UTI's. Last visit 11/05/22--She has been to the ED several times for UTI symptoms, She also complains of pelvic pain, lower abdominal area. Review of chart: ED visits--- 08/28/22, 03/12/2022, 01/29/2022, 11/16/2021, 08/31/2021 Urine culture 03/11/2022-no growth Urine culture 08/28/2022 less than 10,000 colonies Urine culture 08/31/[address] [facility] 03/12/2022 reviewed--right kidney few tiny stones 1-2 mm lower pole, mildly thick-walled bladder question cystitis Evaluation today:? Urinalysis leukocytes negative blood trace, bladder scan PVR 27 mL I have discussed further evaluate with cystoscopy hydrodistension?? 04/14/2023-- She is a status post Cystoscopy hydrodistension. Bladder capacity post distension was 625 mL. She mentions having mild pressure on the pelvic area. However, she denies any urinary tract symptoms at this time. She is not sexually active at this time. She states that she has a family history of breast cancer. Evaluation today -- UA -- Leukocytes: Trace; Blood: Trace. Plan: Recommend Post-coital antibiotic for prophylaxis. Prescribed Macrobid 100 mg Discussed OTC vaginal lubricants, OTC vaginal Replens Follow up in 6 months. [facility] Medical History Anxiety Asthma Chronic migraine Depression Encounter for Medicare annual wellness exam Epilepsy Nephrolithiasis Palpitations Pelvic pain in female UTI (urinary tract infection) Surgical History History of tubal ligation Family History Father Hypertension Stroke CVD (cardiovascular disease) Mother CVD (cardiovascular disease) Hypertension Brother No problems noted. Sister No problems noted. Son No problems noted. Daughter No problems noted. Daughter No problems noted. Social History Housing: Apartment Alcohol intake: never Patient Tobacco Use Status: Never used Tobacco e-Cigarette/Vaping Use: Never Used Second Hand Smoke Exposure: No service: No Current occupational status: disabled Cognitive needs: No Hearing needs: No Vision needs: No Review of Systems Const All systems reviewed & are unremarkable except as noted in HPI and below Reports no additional complaints Eyes Reports no additional complaints ENT Reports no additional complaints Card Denies dyspnea Resp Denies cough and Denies dyspnea GI Reports no additional complaints Reports no additional complaints Musc Reports no additional complaints Skin/Breast Denies rash and Denies unusual bruising Neuro Reports no additional complaints Psych Reports no additional complaints Endo Reports no additional complaints Jeremy/Lymph Reports no additional complaints Aller/Immun Reports no additional complaints Physical Exam Const General: cooperative, healthy appearing and no acute distress Orientation/consciousness: patient oriented x3 HEENT Head: Yes normal to inspection, Yes normocephalic and Yes atraumatic Eyes Conjunctivae: conjunctivae normal Neck Neck: Yes normal visual inspection and Yes trachea midline Chest Chest palpation & inspection: normal inspection of the chest Resp Effort & Inspection: normal respiratory effort Cardio Rate: regular rate GI Inspection: Yes normal to inspection Neuro General: patient oriented x3 Extrem General: No edema Psych Appearance: grossly normal Results AMB Urinalysis, Automated UA Leukoctes 0 Veto/uL Last Edit by Chantell Lucero CMA on 04/14/23 12:03 UA Nitrite Negative Last Edit by Chantell Lucero, JARRED on 04/14/23 12:03 UA Urobilinogen 0.2 mg/dL Last Edit by Chantell Lucero, JARRED on 04/14/23 12:03 UA Protein 0 mg/dL Last Edit by Chantell Lucero, COMMUNICATION EQUIPMENT REPAIRER on 04/14/23 12:03 UA pH 6.0 Last Edit by Chantell Lucero, COMMUNICATION EQUIPMENT REPAIRER on 04/14/23 12:[address]/uL Last Edit by Chantell Lucero, COMMUNICATION EQUIPMENT REPAIRER on 04/14/23 12:03 UA Specific Leonardo 1.015 Last Edit by Chantell Lucero, JARRED on 04/14/23 12:03 UA Ketone Negative Last Edit by Chantell Lucero, JARRED on 04/14/23 12:03 UA Bilirubin 0 mg/dL Last Edit by Chantell Lucero, COMMUNICATION EQUIPMENT REPAIRER on 04/14/23 12:03 UA Glucose 0 mg/dL Last Edit by Chantell Lucero, COMMUNICATION EQUIPMENT REPAIRER on 04/14/23 12:03 Results Reviewed Results Reviewed: Laboratory Last Values Urine pH (Auto) 6.0 04/14/23 11:56 Specific Leonardo (Auto) 1.015 04/14/23 11:56 Urine Protein (Auto) 0 mg/dL 04/14/23 11:56 Glucose (UA)(Auto) 0 mg/dL 04/14/23 11:56 Urine Ketones (Auto) Negative 04/14/23 11:56 Urine Blood (Auto) 0 Lane/uL 04/14/23 11:56 Urine Nitrite (Auto) Negative 04/14/23 11:56 Urine Bilirubin (Auto) 0 mg/dL 04/14/23 11:56 Urine Urobilinogen (Auto) 0.2 mg/dL 04/14/23 11:56 Leukocyte Esterase (Auto) 0 Veto/uL 04/14/23 11:56 Assessment & Plan Assessment & Plan (1) Chronic cystitis: Code(s): N30.20 - Other chronic cystitis without hematuria (2) Kidney stones: Code(s): N20.0 - Calculus of kidney (3) Suprapubic pain: Code(s): R10.2 - Pelvic and perineal pain (4) Pelvic pain in female: Code(s): R10.2 - Pelvic and perineal pain (5) Recurrent UTI: Code(s): N39.0 - Urinary tract infection, site not specified Plan Recommend Post-coital antibiotic for prophylaxis. Prescribed Macrobid 100 mg Discussed OTC vaginal lubricants, OTC vaginal Replens Follow up in 6 months. Orders: Orders AMB Urinalysis Automated 04/14/23 Z13.9 - Encounter for screening, unspecified Medications: New nitrofurantoin monohyd/m-cryst 100 mg (Macrobid) 100 mg orally use after intercourse prn as directed; do not take on an empty stomach 30 caps 3RF Patient Instructions: The patient had an opportunity to ask questions regarding treatment plan. All questions were answered. Imaging, Laboratory studies and physical exam results were discussed and reviewed in detail. No major barriers to understanding were identified. The patient expressed understanding and agreement with the above treatment plan.? ? ? The patient is aware they should contact our office by phone for worsening of their current condition or the appearance of new symptoms. Compliance is encouraged with any medications and followup testing that is ordered.? ? ? It is a privilege to be allowed the opportunity to participate in the urologic care of your patient. If you have any questions or concerns regarding treatment for the above conditions please do not hesitate to contact me. The office telephone contact is [phone].? ? ? This note is constructed in part using voice recognition software. While every effort has been made to ensure accuracy mammographer errors may have been included.? ? ? Yours sincerely,? ? ? Marbella Ellington MD? Coding Level of Care Code Est Pt Level 4 (61562) Diagnoses Chronic cystitis N30.20 Kidney stones N20.0 Suprapubic pain R10.2 Pelvic pain in female R10.2 Recurrent UTI N39.0
== END 2023-04-14 12:38 | disposition home or self-care (01) ==
PROVIDERS: PCP Internal Medicine; Visit Provider Urology
DX: N30.20 Other chronic cystitis without hematuria (principal); N20.0 Calculus of kidney; R10.2 Pelvic and perineal pain
CPT/HCPCS: 99214

== ENCOUNTER → 2023-04-14 11:20 | Outpatient (BNVA) | payer OTHER, SELFPAY | PROVIDERS: PCP Internal Medicine; Visit Provider Urology | DX: N30.20 Other chronic cystitis without hematuria (principal); N20.0 Calculus of kidney; N39.0 Urinary tract infection, site not specified; R10.2 Pelvic and perineal pain | CPT/HCPCS: 81003; 99212 ==

== ENCOUNTER 2023-06-29 20:34 | Emergency (ER) | payer OTHER, SELFPAY ==
[2023-06-29 21:13] VITALS: BP 134/80; PULSE 73; RESP 16; TEMP 37; O2SAT 98; BMI 25.0
[2023-06-29 22:12] LABS: Alanine Aminotransferase 11 U/L (0-31); Albumin Level 4.4 g/dL (3.5-5.0); Alkaline Phosphatase 61 U/L (39-117); Anion Gap 13 (12-20); Aspartate Amino Transferase 18 U/L (5-31); Bilirubin Direct 0.1 mg/dL (0.0-0.5); Bilirubin Total 0.3 mg/dL (0.0-1.0); Blood Urea Nitrogen 9 mg/dL (9-16); Calcium 9.6 mg/dL (8.4-10.2); Carbon Dioxide 24 mmol/L (22-29); Chloride 107 mmol/L (96-108); Creatinine Clr Calc Pharmacy 80.3; Estimated Glomerular Filt Rate > 60; Glucose Random 85 mg/dL (60-115); Lipase 25 U/L (8-78); Sodium 140 mmol/L (135-145); Total Protein 8.1 g/dL (6.5-8.0)
--- NOTE | 2023-06-29 23:38 | ED.CHESTPAIN ---
HPI - Chest Pain General Chief Complaint: Chest Pain Stated Complaint: Chest pain Time Seen by Provider: 06/29/23 22:54 Source: patient Mode of arrival: ambulatory Limitations: no limitations History of Present Illness HPI narrative: Patient history of anxiety/palpitation for last few days with history of chest pain which gets worse with palpitation also complaining of weakness and dizziness patient take metoprolol for palpated with dry cough since yesterday Related Data Home Medications Medication Instructions Recorded Confirmed divalproex 500 mg tablet,delayed 500 mg PO BID 06/25/20 03/12/23 release amitriptyline 10 mg tablet 5 mg PO BEDTIME 10/28/22 03/12/23 metoprolol succinate 25 mg 25 mg PO DAILY 10/28/22 03/12/23 tablet,extended release 24 hr Previous Rx's Medication Instructions Recorded albuterol sulfate 90 mcg/actuation 2 puff inhalation Q6H PRN 10/28/22 aerosol inhaler shortness of breath or wheezing 30 days #8.5 grams meclizine 25 mg tablet 25 mg PO TID PRN dizziness #30 tabs 10/28/22 lorazepam 0.5 mg tablet 0.5 mg PO TID PRN anxiety #7 tabs 02/08/23 meclizine 25 mg tablet 25 mg PO DAILY PRN dizziness #20 04/08/23 tabs nitrofurantoin 100 mg PO .COMPLEX #30 caps 04/14/23 monohydrate/macrocrystals 100 mg capsule (Macrobid) venlafaxine 75 mg capsule,extended 75 mg PO DAILY 30 days #30 caps 05/14/23 release 24 hr uwnyoidthd-hlcitguboonxz-ogapdjcq 1 tab PO Q6H PRN headache #20 tabs 06/30/23 50 mg-325 mg-40 mg tablet Allergies Allergy/AdvReac Type Severity Reaction Status Date / Time aspirin [Aspirin] Allergy Severe RASH Verified 04/14/23 11:55 codeine [CODEINE] Allergy Severe ANAPHYLAXIS Verified 04/14/23 11:55 mayonnaise [MAYONNAISE] Allergy Mild UPSET Verified 04/14/23 11:55 STOMACH, RASH morphine [Morphine] Allergy Mild AGITATION/A Verified 04/14/23 11:55 NXIETY Penicillins Allergy Mild RASH Verified 04/14/23 11:55 cheese Allergy Unknown RASH Verified 04/14/23 11:55 latex [LATEX] Allergy Unknown RASH Verified 04/14/23 11:55 shrimp Allergy Shortness Verified 04/14/23 11:55 of Breath acetaminophen [From Tylenol] AdvReac Mild HEADACHES Verified 04/14/23 11:55 BUTTER FLAVOR Allergy Mild RASH, Uncoded 04/14/23 11:55 UPSET STOMACH Chocolate Allergy Mild UPSET Uncoded 04/14/23 11:55 STOMACH, RASH SPICY FOOD Allergy Mild UPSET Uncoded 04/14/23 11:55 STOMACH, RASH Review of Systems Review of Systems: Yes all other systems are reviewed and are negative [facility] Past Medical History Medical History Palpitations UTI (urinary tract infection) Pelvic pain in female Encounter for Medicare annual wellness exam Nephrolithiasis Epilepsy Asthma Chronic migraine Anxiety Depression Surgical History History of tubal ligation Family History Family History Father Hypertension Stroke CVD (cardiovascular disease) Mother CVD (cardiovascular disease) Hypertension Brother No problems noted. Sister No problems noted. Son No problems noted. Daughter No problems noted. Daughter No problems noted. Social History Social History Housing: Apartment Alcohol intake: never Patient Tobacco Use Status: Never used Tobacco e-Cigarette/Vaping Use: Never Used Second Hand Smoke Exposure: No Advance Directives: No Advance Directives Information Provided: No service: No Current occupational status: disabled Cognitive needs: No Hearing needs: No Vision needs: No Physical Exam Vital Signs: Vital Signs: Last Vital Signs Temp 97.7 F 06/29/23 23:55 Pulse 77 06/29/23 23:55 Resp 20 06/29/23 23:55 BP 110/71 06/29/23 23:55 Pulse Ox 96 06/29/23 23:55 O2 Del Method Room Air 06/29/23 23:55 BMI result Body Mass Index 25.0 Appearance: Alert. Oriented X3. No acute distress. Anxious Eyes: PERRLA, No Nystagmus ENT: Pharynx normal. Oral Mucosa moist Neck: Normal inspection. Neck supple. CVS: Normal heart rate and rhythm. Pulses normal. Respiratory: No respiratory distress. Equal air entry bilateral, no wheezing/rales/rhonchi Abdomen: Soft and nontender. Bowel sounds are present, no mass palpable, no CVA tenderness Skin: Skin warm and dry. Normal skin color. Normal skin turgor. Extremities: No lower extremity edema. No calf tenderness Neuro: Oriented X 3. No motor deficit. No sensory deficit.No cerebellar signs , cranial nerves II-XII intact Medications Administered Discontinued Medications Generic Name Dose Route Start Last Admin Trade Name Freq PRN Reason Stop Dose Admin Acetaminophen/Butalbital/Caffeine 1 tab 06/29/23 23:52 06/30/23 00:05 Butalb/Acetamin/Caff 50/325/40 Tablet PO 06/29/23 23:53 1 tab ONCE ONE Administration Lorazepam 1 mg 06/29/23 23:52 06/30/23 00:05 Lorazepam 1 Mg Tablet PO 06/29/23 23:53 1 mg ONCE ONE Administration Medical Decision Making Medical Decision Making [facility] Narrative: Patient with anxiety migraine headaches and nonspecific palpitation with PACs had detailed workup done in the past patient felt better after Ativan and Fioricet discharge patient home Differential Diagnosis Anxiety/SVT/AFib/migraine Lab Data [facility] Lab Attestation statement: I reviewed the patient's lab results. 06/29/23 21:50 06/29/23 21:50 Labs: Lab Results 06/29/23 Range/Units 21:50 WBC 10.7 (4.8-10.8) X10*3/uL RBC 5.04 (4.20-5.50) X10*6/uL Hgb 14.3 (12.0-16.0) g/dl Hct 43.4 (37.0-47.0) % MCV 86.1 (80.0-98.0) fL MCH 28.4 (27.0-33.0) pg MCHC 32.9 (31.0-35.0) g/dl RDW 13.4 (11.0-16.0) % Plt Count 183 (160-400) X10*3/uL MPV 14.3 H (9.4-12.3) fL Immature Gran % (Auto) 0.3 (0.0-0.4) % Neut % (Auto) 58.0 (45-73) % Lymph % (Auto) 32.0 (20-40) % Emanuel % (Auto) 8.3 (2-11) % Eos % (Auto) 0.8 (0-4) % Baso % (Auto) 0.6 (0-2) % Lymph # (Auto) 3.4 (1.2-4.9) X10*3/uL Emanuel # (Auto) 0.9 (0.1-1.2) X10*3/uL Eos # (Auto) 0.1 (0.0-0.4) X10*3/uL Baso # (Auto) 0.1 (0.0-0.2) X10*3/uL Abs Immat Gran (auto) 0.03 (0.00-0.03) X10*3/uL Absolute Neuts (auto) 6.2 (2.0-8.3) x10*3/uL Absolute Nucleated RBC 0.000 (0.0-0.012) X10*3/uL Nucleated RBC % (auto) 0.0 (0.0-0.2) /100WBC Smear Tech's Comments VERIFIED Sodium 140 (135-145) mmol/L Potassium 4.0 (3.3-5.1) mmol/L Chloride 107 (96-108) mmol/L Carbon Dioxide 24 (22-29) mmol/L Anion Gap 13 (12-20) BUN 9 (9-16) mg/dL Creatinine 0.72 (0.5-1.4) mg/dL Estim Creat Clear Calc 80.3 Estimated GFR > 60 Random Glucose 85 (60-115) mg/dL Calcium 9.6 D (8.4-10.2) mg/dL Total Bilirubin 0.3 (0.0-1.0) mg/dL Direct Bilirubin 0.1 (0.0-0.5) mg/dL AST 18 (5-31) U/L ALT 11 (0-31) U/L Alkaline Phosphatase 61 (39-117) U/L Troponin I High Sens < 2.7 (<3.5-17.0) ng/L Total Protein 8.1 H (6.5-8.0) g/dL Albumin 4.4 (3.5-5.0) g/dL Lipase 25 (8-78) U/L Independent Interpretation I performed an independent interpretation of an: EKG Interpretation: Normal sinus rhythm heart rate 70 beats per minute normal interval normal axis no acute ST-T changes no ischemia Discharge Plan Discharge Clinical Impression: Headache, migraine, Palpitations Patient Disposition: Home, Self-Care Instructions: Heart Palpitations (ED), Migraine Headache (ED) Additional Instructions: Take medication as prescribed by your neurologist for anxiety Medicine for headache as prescribed Follow your PCP Prescriptions: New ybfvnjuncy-devutlsulqhzy-vcrs 50-325-40 mg tablet 1 tab PO Q6H PRN (Reason: headache) Qty: 20 0RF No Action venlafaxine 75 mg capsule,extended release 24hr 75 mg PO DAILY 30 Days Qty: 30 3RF lorazepam 0.5 mg tablet 0.5 mg PO TID PRN (Reason: anxiety) Qty: 7 0RF meclizine 25 mg tablet 25 mg PO DAILY PRN (Reason: dizziness) Qty: 20 0RF albuterol sulfate 90 mcg/actuation HFA aerosol inhaler 2 puff inhalation Q6H PRN (Reason: shortness of breath or wheezing) 30 Days Qty: 8.5 3RF meclizine 25 mg tablet 25 mg PO TID PRN (Reason: dizziness) Qty: 30 0RF amitriptyline 10 mg tablet 5 mg PO BEDTIME metoprolol succinate 25 mg tablet extended release 24 hr 25 mg PO DAILY divalproex 500 mg tablet,delayed release (DR/EC) 500 mg PO BID nitrofurantoin monohyd/m-cryst [Macrobid] 100 mg capsule 100 mg PO .COMPLEX Qty: 30 3RF Rx Instructions: 100 mg orally use after intercourse prn as directed; do not take on an empty stomach
[2023-06-29 23:55] VITALS: BP 110/71; PULSE 77; RESP 20; TEMP 36.5; O2SAT 96
== END 2023-06-30 02:07 | disposition home or self-care (01) ==
PROVIDERS: Emergency Provider Internal Medicine; PCP Internal Medicine
DX: G43.909 Migraine, unspecified, not intractable, without status migrainosus (principal); R07.89 Other chest pain; R42 Dizziness and giddiness; R05.9 Cough, unspecified; R00.2 Palpitations; Z79.899 Other long term (current) drug therapy
CPT/HCPCS: 36415; 80048; 80076; 83690; 84484; 85025; 93005; 99283; 99284

== ENCOUNTER 2023-08-11 20:55 | Emergency (ER) | payer OTHER, SELFPAY ==
--- NOTE | ~2023-08-11 | XR_ITS ---
EXAMINATION: XR CHEST CLINICAL INFORMATION: Cough. COMPARISON: None available. TECHNIQUE: Frontal view of the chest was obtained. FINDINGS: No significant abnormality is noted involving the heart, lungs, mediastinum, bony thorax or soft tissues. XR/XR chest 1V IMPRESSION: Unremarkable examination.
--- NOTE | 2023-08-11 20:56 | ECG_ITS ---
Test Reason : chest pain Blood Pressure : / mmHG Vent. Rate : 085 BPM Atrial Rate : 085 BPM P-R Int : 122 ms QRS Dur : 074 ms QT Int : 358 ms P-R-T Axes : 052 040 033 degrees QTc Int : 426 ms Normal sinus rhythm RSR' or QR pattern in V1 suggests right ventricular conduction delay Otherwise normal ECG When compared with ECG of 29-JUN-2023 20:37, No significant change was found Referred By: Gissell Osorio Electronically Signed By:FERMIN MONTENEGRO MD
[2023-08-11 21:01] VITALS: BP 134/77; PULSE 82; RESP 20; TEMP 36.6; O2SAT 97; BMI 22.7
[2023-08-11 21:21] LABS: Basophils Absolute Auto 0.1 X10*3/uL (0.0-0.2); Basophils Percent Auto 0.4 % (0-2); Eosinophils Absolute Auto 0.1 X10*3/uL (0.0-0.4); Eosinophils Percent Auto 0.7 % (0-4); Hematocrit 42.2 % (37.0-47.0); Hemoglobin 13.8 g/dl (12.0-16.0); Imm Gran Abs Auto 0.02 X10*3/uL (0.00-0.03); Imm Gran Pct Auto 0.2 % (0.0-0.4); Lymphocytes Absolute Auto 5.1 X10*3/uL (1.2-4.9); Lymphocytes Percent Auto 44.3 % (20-40); MANUAL DIFF FLAG SCAN; Mean Corpuscular HGB Conc 32.7 g/dl (31.0-35.0); Mean Corpuscular Hemoglobin 27.8 pg (27.0-33.0); Mean Corpuscular Volume 85.1 fL (80.0-98.0); Mean Platelet Volume 13.5 fL (9.4-12.3); Monocytes Absolute Auto 0.9 X10*3/uL (0.1-1.2); Monocytes Percent Auto 8.2 % (2-11); Neutrophils Absolute Auto 5.3 x10*3/uL (2.0-8.3); Neutrophils Percent Auto 46.2 % (45-73); Platelet Count 216 X10*3/uL (160-400); Red Blood Count 4.96 X10*6/uL (4.20-5.50); Red Cell Distribution Width 12.9 % (11.0-16.0); SCAN SMEAR FLAG 1; White Blood Count 11.4 X10*3/uL (4.8-10.8)
[2023-08-11 21:36] LABS: Alanine Aminotransferase 33 U/L (0-31); Albumin Level 4.4 g/dL (3.5-5.0); Alkaline Phosphatase 74 U/L (39-117); Anion Gap 13 (12-20); Aspartate Amino Transferase 53 U/L (5-31); Bilirubin Total 0.2 mg/dL (0.0-1.0); Blood Urea Nitrogen 17 mg/dL (9-16); Calcium 9.3 mg/dL (8.4-10.2); Carbon Dioxide 24 mmol/L (22-29); Chloride 106 mmol/L (96-108); Creatinine Clr Calc Pharmacy 49.5; Estimated Glomerular Filt Rate 56; Glucose Random 89 mg/dL (60-115); Sodium 139 mmol/L (135-145); Total Protein 8.3 g/dL (6.5-8.0)
[2023-08-11 21:42] LABS: SLIDE REVIEW VERIFIED
[2023-08-11 21:43] LABS: Troponin-I High Sensitivity < 2.7 ng/L (<3.5-17.0)
[2023-08-11 21:44] VITALS: BP 133/79; PULSE 76; RESP 16; TEMP 36.8; O2SAT 99
--- NOTE | 2023-08-11 21:55 | ED.CHESTPAIN ---
HPI - Chest Pain General Chief Complaint: Chest Pain Stated Complaint: Chest pain, dizziness Time Seen by Provider: 08/11/23 21:52 Source: patient Mode of arrival: ambulatory Limitations: no limitations History of Present Illness HPI narrative: Patient history of depression anxiety epilepsy asthma no known coronary disease been coughing for last few days today she took NyQuil about 20 minutes ago went to shower felt lightheaded and dizzy with midsternal chest pain which is reproducible on palpation and taking deep breaths no radiation of the pain no nausea or vomiting no syncope episode patient seems to be anxious on arrival Related Data Home Medications Medication Instructions Recorded Confirmed divalproex 500 mg tablet,delayed 500 mg PO BID 06/25/20 03/12/23 release amitriptyline 10 mg tablet 5 mg PO BEDTIME 10/28/22 03/12/23 metoprolol succinate 25 mg 25 mg PO DAILY 10/28/22 03/12/23 tablet,extended release 24 hr Previous Rx's Medication Instructions Recorded albuterol sulfate 90 mcg/actuation 2 puff inhalation Q6H PRN 10/28/22 aerosol inhaler shortness of breath or wheezing 30 days #8.5 grams meclizine 25 mg tablet 25 mg PO TID PRN dizziness #30 tabs 10/28/22 lorazepam 0.5 mg tablet 0.5 mg PO TID PRN anxiety #7 tabs 02/08/23 meclizine 25 mg tablet 25 mg PO DAILY PRN dizziness #20 04/08/23 tabs nitrofurantoin 100 mg PO .COMPLEX #30 caps 04/14/23 monohydrate/macrocrystals 100 mg capsule (Macrobid) venlafaxine 75 mg capsule,extended 75 mg PO DAILY 30 days #30 caps 05/14/23 release 24 hr gemwsquqzx-awihngxqcxntn-biiooeqj 1 tab PO Q6H PRN headache #20 tabs 06/30/23 50 mg-325 mg-40 mg tablet benzonatate 200 mg capsule 200 mg PO TID PRN cough #30 caps 08/12/23 ibuprofen 600 mg tablet 600 mg PO Q6H PRN fever or pain 08/12/23 #30 tabs Allergies Allergy/AdvReac Type Severity Reaction Status Date / Time aspirin [Aspirin] Allergy Severe RASH Verified 08/11/23 21:05 codeine [CODEINE] Allergy Severe ANAPHYLAXIS Verified 08/11/23 21:05 mayonnaise [MAYONNAISE] Allergy Mild UPSET Verified 08/11/23 21:05 STOMACH, RASH morphine [Morphine] Allergy Mild AGITATION/A Verified 08/11/23 21:05 NXIETY Penicillins Allergy Mild RASH Verified 08/11/23 21:05 cheese Allergy Unknown RASH Verified 08/11/23 21:05 latex [LATEX] Allergy Unknown RASH Verified 08/11/23 21:05 shrimp Allergy Shortness Verified 08/11/23 21:05 of Breath acetaminophen [From Tylenol] AdvReac Mild HEADACHES Verified 08/11/23 21:05 BUTTER FLAVOR Allergy Mild RASH, Uncoded 04/14/23 11:55 UPSET STOMACH Chocolate Allergy Mild UPSET Uncoded 04/14/23 11:55 STOMACH, RASH SPICY FOOD Allergy Mild UPSET Uncoded 04/14/23 11:55 STOMACH, RASH Review of Systems Review of Systems: Yes all other systems are reviewed and are negative PMFSH Past Medical History Medical History Palpitations UTI (urinary tract infection) Pelvic pain in female Encounter for Medicare annual wellness exam Nephrolithiasis Epilepsy Asthma Chronic migraine Anxiety Depression Surgical History History of tubal ligation Family History Family History Father Hypertension Stroke CVD (cardiovascular disease) Mother CVD (cardiovascular disease) Hypertension Brother No problems noted. Sister No problems noted. Son No problems noted. Daughter No problems noted. Daughter No problems noted. Social History Housing: Apartment Alcohol intake: never Patient Tobacco Use Status: Never used Tobacco Smoked in Last 30 Days: No e-Cigarette/Vaping Use: Never Used Second Hand Smoke Exposure: No Use of substances other than those prescribed or required for medical reasons: No Advance Directives: No Advance Directives Information Provided: Yes Patient : No service: No Current occupational status: disabled Cognitive needs: No Hearing needs: No Vision needs: No Physical Exam Vital Signs: Vital Signs: Last Vital Signs Temp 98.3 F 08/11/23 21:44 Pulse 76 08/11/23 21:44 Resp 16 11/22/23 21:44 BP 133/79 08/11/23 21:44 Pulse Ox 99 08/11/23 21:44 O2 Del Method Room Air 08/11/23 21:44 BMI result Body Mass Index 22.7 Appearance: Alert. Oriented X3. No acute distress. Eyes: No pallor ENT: Pharynx normal. Oral Mucosa moist Neck: Normal inspection. Neck supple. CVS: Normal heart rate and rhythm. Pulses normal. Respiratory: No respiratory distress. Equal air entry bilateral, no wheezing/rales/rhonchi chest wall tenderness+ Abdomen: Soft and nontender. Bowel sounds are present, Skin: Skin warm and dry. Normal skin color. Normal skin turgor. Extremities: No lower extremity edema. No calf tenderness Neuro: Oriented X 3. No motor deficit. Const: Other: Appearance: Alert. Oriented X3. No acute distress. Anxious Eyes: PERRLA, No Nystagmus ENT: Pharynx normal. Oral Mucosa moist Neck: Normal inspection. Neck supple. CVS: Normal heart rate and rhythm. Pulses normal. Respiratory: No respiratory distress. Equal air entry bilateral, no wheezing/rales/rhonchi tenderness to mid sternal and left 2nd intercostal space Abdomen: Soft and nontender. Bowel sounds are present, Skin: Skin warm and dry. Normal skin color. Normal skin turgor. Extremities: No lower extremity edema. No calf tenderness Neuro: Oriented X 3. No motor deficit. Medications Administered Discontinued Medications Generic Name Dose Route Start Last Admin Trade Name Freq PRN Reason Stop Dose Admin Ibuprofen 600 mg 08/11/23 22:08 08/11/23 22:20 Ibuprofen 600 Mg Tablet PO 08/11/23 22:09 600 mg ONCE ONE Administration Medical Decision Making Medical Decision Making [facility] Narrative: Patient with atypical chest pain with cough history of asthma chest x-ray negative COVID/flu/RSV negative high sensitive troponin 2 times negative discharge patient home advised to have cough drops likely patient pain is musculoskeletal patient's heart score is 0 Differential Diagnosis Differential Diagnoses: The differential diagnosis associated with the presentation includes ACS/chest wall pain/musculoskeletal pain Admission/Observation Consideration of admission/observation: Escalation of care including admission/observation considered Lab Data [facility] Lab Attestation statement: I reviewed the patient's lab results. 08/11/23 21:14 08/11/23 21:14 Labs: Lab Results 08/11/23 08/11/23 08/12/23 Range/Units 21:14 22:02 00:00 WBC 11.4 H (4.8-10.8) X10*3/uL RBC 4.96 (4.20-5.50) X10*6/uL Hgb 13.8 (12.0-16.0) g/dl Hct 42.2 (37.0-47.0) % MCV 85.1 (80.0-98.0) fL MCH 27.8 (27.0-33.0) pg MCHC 32.7 (31.0-35.0) g/dl RDW 12.9 (11.0-16.0) % Plt Count 216 (160-400) X10*3/uL MPV 13.5 H (9.4-12.3) fL Immature Gran % (Auto) 0.2 (0.0-0.4) % Neut % (Auto) 46.2 (45-73) % Lymph % (Auto) 44.3 H (20-40) % [place] % (Auto) 8.2 (2-11) % Eos % (Auto) 0.7 (0-4) % Baso % (Auto) 0.4 (0-2) % Lymph # (Auto) 5.1 H (1.2-4.9) X10*3/uL [place] # (Auto) 0.9 (0.1-1.2) X10*3/uL Eos # (Auto) 0.1 (0.0-0.4) X10*3/uL Baso # (Auto) 0.1 (0.0-0.2) X10*3/uL Abs Immat Gran (auto) 0.02 (0.00-0.03) X10*3/uL Absolute Neuts (auto) 5.3 (2.0-8.3) x10*3/uL Absolute Nucleated RBC 0.000 (0.0-0.012) X10*3/uL Nucleated RBC % (auto) 0.0 (0.0-0.2) /100WBC Smear Tech's Comments VERIFIED Sodium 139 (135-145) mmol/L Potassium 4.0 (3.3-5.1) mmol/L Chloride 106 (96-108) mmol/L Carbon Dioxide 24 (22-29) mmol/L Anion Gap 13 (12-20) BUN 17 H (9-16) mg/dL Creatinine 1.06 (0.5-1.4) mg/dL Estim Creat Clear Calc 49.5 Estimated GFR 56 Random Glucose 89 (60-115) mg/dL Calcium 9.3 (8.4-10.2) mg/dL Total Bilirubin 0.2 (0.0-1.0) mg/dL AST 53 H (5-31) U/L ALT 33 H (0-31) U/L Alkaline Phosphatase 74 (39-117) U/L Troponin I High Sens < 2.7 < 2.7 (<3.5-17.0) ng/L Total Protein 8.3 H (6.5-8.0) g/dL Albumin 4.4 (3.5-5.0) g/dL Influenza Type A (PCR) NEGATIVE (Negative) Influenza Type B (PCR) NEGATIVE (Negative) RSV RNA Qual (PCR) NEGATIVE (Negative) SARS-CoV-2 RNA (RT-PCR) NEGATIVE (Negative) Independent Interpretation I performed an independent interpretation of an: EKG and Plain X-Ray Interpretation: Normal sinus rhythm heart rate 85 beats per minute normal interval normal axis no acute dyspnea no acute ischemic Radiology Impression Discussion of test interpretation with radiology: I have reviewed the radiologist's reading. Discharge Plan Discharge Clinical Impression: Chest pain Patient Disposition: Home, Self-Care Instructions: Chest Pain (ED) Additional Instructions: Your chest pain unlikely from the heart Take ibuprofen for pain as needed and follow with PCP Take Tessalon for cough and use your inhaler Prescriptions: New ibuprofen 600 mg tablet 600 mg PO Q6H PRN (Reason: fever or pain) Qty: 30 0RF benzonatate 200 mg capsule 200 mg PO TID PRN (Reason: cough) Qty: 30 0RF No Action venlafaxine 75 mg capsule,extended release 24hr 75 mg PO DAILY 30 Days Qty: 30 3RF lorazepam 0.5 mg tablet 0.5 mg PO TID PRN (Reason: anxiety) Qty: 7 0RF meclizine 25 mg tablet 25 mg PO DAILY PRN (Reason: dizziness) Qty: 20 0RF emrmyjbzsh-ccdkvqzkoomqw-ecxa 50-325-40 mg tablet 1 tab PO Q6H PRN (Reason: headache) Qty: 20 0RF albuterol sulfate 90 mcg/actuation HFA aerosol inhaler 2 puff inhalation Q6H PRN (Reason: shortness of breath or wheezing) 30 Days Qty: 8.5 3RF meclizine 25 mg tablet 25 mg PO TID PRN (Reason: dizziness) Qty: 30 0RF amitriptyline 10 mg tablet 5 mg PO BEDTIME metoprolol succinate 25 mg tablet extended release 24 hr 25 mg PO DAILY divalproex 500 mg tablet,delayed release (DR/EC) 500 mg PO BID nitrofurantoin monohyd/m-cryst [Macrobid] 100 mg capsule 100 mg PO .COMPLEX Qty: 30 3RF Rx Instructions: 100 mg orally use after intercourse prn as directed; do not take on an empty stomach
[2023-08-11 22:13] VITALS: PULSE 90
--- NOTE | 2023-08-11 22:13 | PC.NURSE ---
Patient reports having cough for 3 days, took some dayquil for the 1st time and developed tight epigastrc chest pain 05/30. Reporting she has been coughing and now has nausea and vomiting. EKG and labs complete, pending results.
[2023-08-11] MEDS: Ibuprofen 600 MG TABLET PO (22:20)
[2023-08-11 22:43] LABS: Influenza A PCR NEGATIVE (Negative); Influenza B PCR NEGATIVE (Negative); Resp Syncy Virus RNA Qual PCR NEGATIVE (Negative); SARS COV2 PCR INHOUSE NEGATIVE (Negative)
[2023-08-12 00:26] LABS: Troponin-I High Sensitivity < 2.7 ng/L (<3.5-17.0)
[2023-08-12 01:11] VITALS: BP 130/85; PULSE 77; RESP 16; O2SAT 97
== END 2023-08-12 01:13 | disposition home or self-care (01) ==
PROVIDERS: Emergency Provider Internal Medicine
DX: R07.9 Chest pain, unspecified (principal); R05.9 Cough, unspecified; R07.89 Other chest pain; G40.909 Epilepsy, unspecified, not intractable, without status epilepticus; Z20.822 Contact with and (suspected) exposure to COVID-19; Z20.828 Contact with and (suspected) exposure to other viral communicable diseases
CPT/HCPCS: 0241U; 36415; 71045; 80053; 84484; 85025; 93005; 99283; 99285

== ENCOUNTER 2024-01-28 12:41 | Outpatient (REF) | payer OTHER, SELFPAY ==
--- NOTE | ~2024-01-28 | CT_ITS ---
EXAMINATION: CT HEAD WITHOUT CONTRAST CLINICAL INFORMATION: Seizure disorder COMPARISON: CT head 04/08/2023, 08/20/2020, 10/19/2008 report TECHNIQUE: Contiguous axial imaging was performed from the skull base to vertex without intravenous administration of contrast. This CT examination was performed using dose optimization techniques as appropriate, variously including the following: *Automated exposure control *Adjustment of mA and/or kV according to patient size (this includes techniques or standardized protocols for targeted exams where dose is matched to indication/reason for exam; i.e. extremities or head) *Use of iterative reconstruction technique DLP: 574 . mGy-cm FINDINGS: The ventricles and sulci are normal in size and configuration. No focal parenchymal lesions of the brain or abnormal extra-axial fluid collections noted. No intracranial hemorrhage, tumors or infarcts visualized. No gross evidence of velazquez matter heterotopia or cortical malformations. The hippocampal formations are grossly normal in appearance. The pituitary is grossly normal in appearance. The visualized components of the septum pellucidum, corpus callosum, cerebellar vermis and cervicomedullary junction are normal in appearance. Normal appearance of the orbits and globes. No significant opacification of the visualized paranasal sinuses, mastoid air cells and middle ear cavities CT/CT head/brain wo IV con IMPRESSION: Normal unenhanced CT the head. No findings to correlate with a history of seizure disorder. No focal parenchymal lesions of the brain identified. Grossly normal appearance of the hippocampal formations. No evidence of neuronal migrational abnormalities. Of note, MRI of the brain may be a more sensitive examination in the detection of epileptogenic lesions compared with unenhanced CT of the head.
== END 2024-01-28 12:42 | disposition home or self-care (01) ==
LOC: HO.CT 12:41
PROVIDERS: PCP Internal Medicine; Visit Provider Registered Nurse
DX: G40.909 Epilepsy, unspecified, not intractable, without status epilepticus (principal)
CPT/HCPCS: 70450

== ENCOUNTER 2024-09-19 08:59 | Outpatient (AMB) | payer OTHER, SELFPAY ==
--- NOTE | 2024-09-19 09:06 | A.OFFPC_ITS ---
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 Required: No Accompanied by: Self / Same As Patient Allergies aspirin [Aspirin] Allergy (Severe, Verified 09/19/24 09:17) RASH codeine [CODEINE] Allergy (Severe, Verified 09/19/24 09:17) ANAPHYLAXIS mayonnaise [MAYONNAISE] Allergy (Mild, Verified 09/19/24 09:17) UPSET STOMACH, RASH morphine [Morphine] Allergy (Mild, Verified 09/19/24 09:17) AGITATION/ANXIETY Penicillins Allergy (Mild, Verified 09/19/24 09:17) RASH cheese Allergy (Unknown, Verified 09/19/24 09:17) RASH latex [LATEX] Allergy (Unknown, Verified 09/19/24 09:17) RASH shrimp Allergy (Verified 09/19/24 09:17) Shortness of Breath acetaminophen [From Tylenol] Adverse Reaction (Mild, Verified 09/19/24 09:17) HEADACHES BUTTER FLAVOR Allergy (Mild, Uncoded 09/19/24 09:17) RASH, UPSET STOMACH Chocolate Allergy (Mild, Uncoded 09/19/24 09:17) UPSET STOMACH, RASH SPICY FOOD Allergy (Mild, Uncoded 09/19/24 09:17) UPSET STOMACH, RASH Medication List - Last Reconciled 09/19/24 by Kwame Sutton MD albuterol sulfate 90 mcg/actuation 2 puffs inhalation Q6H PRN 30 days amitriptyline 5 mg PO BEDTIME lhfyrxngio-tskijuccvpwmi-ybzu 50-325-40 mg 1 tab PO Q6H PRN divalproex 500 mg PO BID ibuprofen 600 mg PO Q6H PRN lorazepam 0.5 mg PO TID PRN meclizine 25 mg PO TID PRN metoprolol succinate ER 25 mg PO DAILY nitrofurantoin monohyd/m-cryst 100 mg (Macrobid) 100 mg orally use after intercourse prn as directed; do not take on an empty stomach venlafaxine ER 75 mg PO DAILY 30 days Tobacco use date assessed: 09/19/24 Dental Screening Dental Screen Date: 09/19/24 Did you have a dental visit in the last 12 months?: Yes Did you have a dental problem in the last 6 months where you did not have access to dental care?: No Was dental information given to patient?: Patient has dentist HPI annual exam HPI Details Patient comes in today for her annual physical examination - was last seen here over a yeara ago on 10/28/2022 States that she currently feels okay She denies any dizziness but is still experiencing recurrent headaches (migraine), especially over the right frontal area States that she also still has recurrent seizures and seizure-like activity, most recently including twitching movements of the left side of the face - states that her most recent seizure episode was around 8 days ago She is still [place] [facility] [place] but has been seeing a nurse practitioner (Bela Bautista) recently as Dr. Abrams has retired from active practice She had a head CT again done back in January 2024 that came out negative She denies any chest pains, no SOB No nausea/vomiting, no abdominal pain No change in bowel habits noted She denies any acute urinary symptoms She is overdue for her annual mammogram and yearly gynecology exam and pap smear She has also never had a screening colonoscopy done in the past [facility] Medical History (Updated 09/19/24 @ 10:12 by Kwame Sutton MD) Overweight (BMI 25.0-29.9) Palpitations Pelvic pain in female Nephrolithiasis Epilepsy Asthma Chronic migraine Anxiety Depression Surgical History (Updated 09/19/24 @ 09:31 by Kwame Sutton MD) History of laparoscopic cholecystectomy History of tubal ligation Family History Father Hypertension Stroke CVD (cardiovascular disease) Mother CVD (cardiovascular disease) Hypertension Brother No problems noted. Sister No problems noted. Son No problems noted. Daughter No problems noted. Daughter No problems noted. Social History Housing: Apartment Alcohol intake: never Patient Tobacco Use Status: Never used Tobacco e-Cigarette/Vaping Use: Never Used Second Hand Smoke Exposure: No service: No Current occupational status: disabled Cognitive needs: No Hearing needs: No Vision needs: No Questionnaire PHQ-9 Over the last 2 weeks, how often have you been bothered by any of the following problems? 1. Little interest or pleasure in doing things: several days 2. Feeling down, depressed, or hopeless: not at all 3. Trouble falling or staying asleep, or sleeping too much: several days 4. Feeling tired or having little energy: more than half the days 5. Poor appetite or overeating: more than half the days 6. Feeling bad about yourself - or that you are a failure or have let yourself or your family down: not at all 7. Trouble concentrating on things, such as reading the newspaper or watching television: several days 8. Moving or speaking so slowly that other people could have noticed. Or the opposite - being so fidgety or restless that you have been moving around a lot more than usual: several days 9. Thoughts that you would be better off or of hurting yourself in some way: not at all Total score: 8 Depression Screening Interpretation: Positive Depression Screening Follow-up: Existing condition and In treatment Depression Screening Done: Yes 50319 - PHQ-9 Billing: Yes Source: Developed by Drs. Javan Guzman, Hilaria Herrera, Long Goldberg and colleagues, with an educational franco from [employer] Thrive Questionnaire Date Thrive assessed: 09/19/24 I am a: Patient What is your living situation today?: I have a steady place to live Within the past 12 months, did the food you bought not last and you didn't have the money to get more?: Never true Within the past 12 months, did you worry whether your food would run out before you got money to buy more?: Never true Do you have trouble paying for medicines?: No Do you have trouble getting transportation to medical appointments?: Yes Do you have trouble paying your heating and electricity bill?: No Do you have trouble taking care of your child, family member or friend?: I choose not to answer this question Do you have trouble with day-to-day activities such as bathing, preparing meals, shopping, managing finances, etc.?: No Are you currently unemployed and looking for a job?: Yes Are you interested in more education?: Yes Please select the resources that you would like help with: Transportation Currently or been in a relationship where the following occur: No concerns reported THRIVE Score: 1 AUDIT C Alcohol Use Questionnaire (AUDIT-C) 1. How often do you have a drink containing alcohol?: Never 3. How often do you have six or more drinks on one occasion?: Never Total Score: 0 Score Reviewed/Action Taken: Yes MAHSA-7 AMB Questionnaire MAHSA-7 Date MAHSA - 7 assessed: 09/19/24 Feeling nervous, anxious, or on edge: 1 = Several days Not being able to stop or control worryin = Several days Worrying too much about different things: 1 = Several days Trouble relaxin = Several days Being so restless that it is hard to sit still: 0 = Not at all Becoming easily annoyed or irritable: 0 = Not at all Feeling afraid as if something awful might happen: 0 = Not at all Total MAHSA-7 score (0-4 normal; 5-9 mild; 10-14 moderate; 15-21 severe): 4 Source: Developed by Drs. Javan Guzman, Hilaria Herrera, Long Goldberg and colleagues, with an educational franco from [employer] Review of Systems Const Denies chills, Reports fatigue, Denies fever(s), Reports headache(s) (recurrent - see HPI) and Denies malaise Eyes Denies blurry vision, Denies change in vision, Denies irritation and Denies itchy eyes ENT Denies dysphagia, Denies dizziness, Denies otalgia, Reports headache(s) (recurrent - see HPI), Denies nasal congestion, Denies neck pain, Denies odynophagia, Denies sinus pain and Denies sore throat Card Denies chest pain, Denies rapid heart rate, Denies irregular heart rhythm, Denies palpitations and Denies dyspnea Resp Denies chest congestion, Denies cough, Denies dyspnea and Denies wheezing GI Denies abdominal pain, Denies bloating, Reports constipation, Denies dysphagia, Denies heartburn, Denies diarrhea, Denies nausea, Denies odynophagia and Denies vomiting Denies hematuria, Denies urinary frequency, Denies dysuria, Denies urinary incontinence and Denies urinary urgency Musc Denies back pain, Denies arthralgias, Denies joint swelling, Denies muscle weakness and Denies neck pain Skin/Breast Denies breast pain, Denies breast mass, Denies change in pigmentation, Denies lesions, Denies rash and Denies unusual bruising Neuro Denies dizziness, Reports headache(s) (recurrent - see HPI), Reports convulsions, Reports seizure-like activity and Denies paresthesias Psych Reports anxiety and Reports depression Endo Reports fatigue and Denies palpitations Jeremy/Lymph Denies easy bruising Aller/Immun Denies itchy eyes and Denies wheezing Physical exam (Primary Care) Vital Signs: Last Vital Signs Pulse 93 09/19/24 09:07 BP 110/72 09/19/24 09:07 Pulse Ox 98 09/19/24 09:07 Oxygen Delivery Method Room Air 09/19/24 09:07 BMI result Body Mass Index 27.8 Tobacco/Smoking Status: Tobacco use Status Tobacco use date assessed 09/19/24 09/19/24 09:11 Patient Tobacco Use Status Never used Tobacco 09/19/24 09:11 e-Cigarette/Vaping Use Never Used 09/19/24 09:11 PHQ-9: PHQ-9 Score PHQ-9: Total score 8 09/19/24 09:11 Depression Screening Interpretation: Positive Depression Screening Follow-up: Existing condition and In treatment Thrive Assessment: Date of Thrive Assessment Date Thrive assessed 09/19/24 09/19/24 09:11 Currently or been in a relationship where the following occur: No concerns reported Const General: no acute distress, alert and awake Orientation/consciousness: patient oriented x3 HENMT Head: Yes normocephalic and Yes atraumatic Ears: external ears normal, TM's normal bilaterally and EAC's normal General nose exam: No nasal discharge present Face and sinus: Yes normal facial exam and Yes sinuses nontender Teeth and gingiva: dentition normal Throat: Yes posterior oropharynx normal and Yes tonsils normal (no TP congestion) Eyes Eyelids: Yes eyelids normal Conjunctivae: conjunctivae normal Pupils: Equal, round and reactive pupils present EOM: EOMs intact bilaterally Neck Neck: Yes no lymphadenopathy and Yes supple Thyroid: Thyroid normal Resp Auscultation: clear to auscultation bilaterally, no rales and no wheezes Cardio Rate: regular rate Rhythm: regular rhythm Heart sounds: no murmurs GI Palpation (GI): Soft to palpation, nontender and No hepatosplenomegaly present Auscultation: normal bowel sounds General: Yes no CVA tenderness Back/Spine/Pelvis Back: no CVA tenderness Thoracic/Lumbar Spine: thoracic and lumbar spine normal to inspection Skin Lesions: no lesions Rashes: no rashes Neuro General: patient oriented x3, moves all extremities, no focal motor deficits and CN's II-XI intact bilaterally Cranial nerves: Yes Equal, round and reactive pupils present Cognition (Neuro): normal cognition Gait exam (Neuro): Normal gait present Extrem General: Yes no clubbing, cyanosis or edema Coding Level of Care Code Est Pt Prev Care 40-64y(85438) Diagnoses Annual physical exam Z00.00 Nonintractable epilepsy without status epilepticus, unspecified epilepsy type G40.909 Epilepsy type: unspecified Intractability: not intractable Status epilepticus: without status epilepticus Chronic migraine G43.709 Mild intermittent asthma without complication J45.20 Asthma severity: mild Asthma persistence: intermittent Asthma complication type: uncomplicated Nephrolithiasis N20.0 Pelvic pain in female R10.2 Anxiety F41.9 Episode of recurrent major depressive disorder, unspecified depression episode severity F33.9 Depression Type: major depressive disorder Major depression recurrence: recurrent Active/Remission status: currently active Major depression episode severity: unspecified Overweight (BMI 25.0-29.9) E66.3 Breast cancer screening by mammogram Z12.31 Cervical cancer screening Z12.4 Colon cancer screening Z12.11 Additional Codes PHQ-9 - 15233 - PHQ-9 Billing: Yes ([id number]) Assessment & Plan Assessment & Plan (1) Annual physical exam: Code(s): Z00.00 - Encounter for general adult medical examination without abnormal findings Category: Medical Plan: Check labs She is overdue on all of her cancer screenings, including her annual mammogram, yearly pap smear/gynecology exam and screening colonoscopy As for her cardiac work ups for her recurrent chest pains in the past, EKG done in early 2022 showed normal sinus rhythm with sinus arrhythmia, heart rate at 79/min. Echocardiogram done on 01/28/2023 revealed EF of 67%, with no valvular abnormalities and no regional wall motion abnormalities An exercise stress test done on 01/28/2023 showed exercise at 6 minutes achieving 94% MPHR, with no chest discomfort and no EKG changes during exercise Holter monitor done on 01/28/2023 for 2 days showed sinus rhythm with average hea rt rate of 93/min, heart rate ranging from 71-152, 30% of the time heart rate greater than 100, rare ectopy (2) Epilepsy: Code(s): G40.909 - Epilepsy, unspecified, not intractable, without status epilepticus Category: Medical Qualifiers: Epilepsy type: unspecified Intractability: not intractable Status epilepticus: without status epilepticus Qualified Code(s): G40.909 - Epilepsy, unspecified, not intractable, without status epilepticus Plan: Continue Depakote 500 mg BID Follow up with neurology as scheduled (3) Chronic migraine: Code(s): G43.709 - Chronic migraine without aura, not intractable, without status migrainosus Category: Medical Plan: Reinforced complete avoidance of all potential migraine triggers Continue Amitriptyline 5 mg Q HS and Fioricet 50-325-40 mg PRN for headaches Head CT done back in January 2024 came back normal but radiology did comment that an MRI of the brain may be a more sensitive examination in the detection of epileptogenic lesions compared with unenhanced CT of the head Due to her recurrent headaches and seizure episodes, will try sending her for an MRI of the brain for further evaluation Follow up with neurology as scheduled (4) Asthma: Code(s): J45.909 - Unspecified asthma, uncomplicated Category: Medical Qualifiers: Asthma severity: mild Asthma persistence: intermittent Asthma complication type: uncomplicated Qualified Code(s): J45.20 - Mild intermittent asthma, uncomplicated Plan: Stable - continue Albuterol HFA 1 to 2 inhalations Q 6 hours PRN (5) Nephrolithiasis: Code(s): N20.0 - Calculus of kidney Category: Medical Plan: Abdominal and pelvic CT done in February 2022 revealed (+) small 1 to 2 mm non-obstr ucting calculus in the mid to lower pole of the right kidney; there is no hydronephrosis noted. (+) mildly thick-walled bladder - cystitis cannot be excluded She underwent cystoscopy and hydrodistention with urology in February 2023 - no suspicious bladder lesions were seen Follow up with urology as scheduled (6) Pelvic pain in female: Code(s): R10.2 - Pelvic and perineal pain Category: Medical Plan: Pelvic US done in November 2022 revealed (+) 2.7 cm right fundal fibroid. Engorged left parametrial veins may reflect pelvic congestion Follow up with gynecology and urology as scheduled (7) Anxiety: Code(s): F41.9 - Anxiety disorder, unspecified Category: Medical Plan: Continue Lorazepam 0.5 mg TID PRN; she is also on Venlafaxine ER 75 mg QD (8) Depression: Code(s): F32.9 - Major depressive disorder, single episode, unspecified Category: Medical Qualifiers: Depression Type: major depressive disorder Major depression recurrence: recurrent Active/Remission status: currently active Major depression episode severity: unspecified Qualified Code(s): F33.9 - Major depressive disorder, recurrent, unspecified Plan: Continue Venlafaxine ER 75 mg QD Follow up with psychiatry as scheduled (9) Overweight (BMI 25.0-29.9): Code(s): E66.3 - Overweight Category: Medical Plan: Reinforced diet/exercise as tolerated/lose weight (10) Breast cancer screening by mammogram: Code(s): Z12.31 - Encounter for screening mammogram for malignant neoplasm of breast Category: Medical Plan: Will send her for annual mammogram (11) Cervical cancer screening: Code(s): Z12.4 - Encounter for screening for malignant neoplasm of cervix Category: Medical Plan: Will refer her to [facility]Res[facility] Program Specialist for her annual pap smear and gynecology exam (12) Colon cancer screening: Code(s): Z12.11 - Encounter for screening for malignant neoplasm of colon Category: Medical Plan: Will refer her to GI for her screening colonoscopy Plan Follow up in 4 months Orders: Orders Complete Blood Count Auto Diff Today D64.9 - Anemia, unspecified, Z00.00 - Encounter for general adult medical examination without abnormal findings Comprehensive [place]. Panel Fast Today E78.00 - Pure hypercholesterolemia, unspecified, Z00.00 - Encounter for general adult medical examination without abnormal findings Lipid Panel Today E78.00 - Pure hypercholesterolemia, unspecified, Z00.00 - Encounter for general adult medical examination without abnormal findings TSH reflex Free T4 Today E78.00 - Pure hypercholesterolemia, unspecified, Z00.00 - Encounter for general adult medical examination without abnormal findings Vitamin B12 and Folate Today E53.8 - Deficiency of other specified B group vitamins, Z00.00 - Encounter for general adult medical examination without abnormal findings MM tomosynthesis screening BI Today Z12.31 - Encounter for screening mammogram for malignant neoplasm of breast UA CC w/rflx Micro + Cult Today R30.0 - Dysuria, Z00.00 - Encounter for general adult medical examination without abnormal findings Vitamin D 25-OH Total Today E55.9 - Vitamin D deficiency, unspecified, Z00.00 - Encounter for general adult medical examination without abnormal findings Valproate Today G40.909 - Epilepsy, unspecified, not intractable, without status epilepticus, Z00.00 - Encounter for general adult medical examination without abnormal findings MR head/brain wo con Today G40.909 - Epilepsy, unspecified, not intractable, without status epilepticus, G43.709 - Chronic migraine without aura, not intractable, without status migrainosus 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
[2024-09-19 09:07] VITALS: BP 110/72; PULSE 93; O2SAT 98; BMI 27.8
== END 2024-09-19 09:42 | disposition home or self-care (01) ==
PROVIDERS: PCP Internal Medicine; Visit Provider Internal Medicine
DX: Z00.00 Encounter for general adult medical examination without abnormal findings (principal); G40.909 Epilepsy, unspecified, not intractable, without status epilepticus; F33.9 Major depressive disorder, recurrent, unspecified; G43.709 Chronic migraine without aura, not intractable, without status migrainosus; J45.20 Mild intermittent asthma, uncomplicated; N20.0 Calculus of kidney; R10.2 Pelvic and perineal pain; F41.9 Anxiety disorder, unspecified; E66.3 Overweight; Z12.31 Encounter for screening mammogram for malignant neoplasm of breast; Z12.11 Encounter for screening for malignant neoplasm of colon

== ENCOUNTER → 2024-09-19 08:59 | Outpatient (BNVA) | payer OTHER, SELFPAY | PROVIDERS: PCP Internal Medicine; Visit Provider Internal Medicine | DX: Z00.00 Encounter for general adult medical examination without abnormal findings (principal); G40.909 Epilepsy, unspecified, not intractable, without status epilepticus; G43.709 Chronic migraine without aura, not intractable, without status migrainosus; J45.20 Mild intermittent asthma, uncomplicated; R10.2 Pelvic and perineal pain; F41.9 Anxiety disorder, unspecified; F33.9 Major depressive disorder, recurrent, unspecified; E66.3 Overweight; Z68.27 Body mass index [BMI] 27.0-27.9, adult; Z71.3 Dietary counseling and surveillance | CPT/HCPCS: 96127; 99396 ==

== ENCOUNTER 2024-10-04 10:49 | Outpatient (REF) | payer OTHER, SELFPAY | END 2024-10-04 10:50 | disposition home or self-care (01) | LOC: HO.MAMMO 10:49 | PROVIDERS: PCP Internal Medicine; Visit Provider Internal Medicine | DX: Z12.31 Encounter for screening mammogram for malignant neoplasm of breast (principal) | CPT/HCPCS: 77063; 77067 ==

== ENCOUNTER → 2024-10-04 11:00 | Outpatient (BNV) | payer OTHER, SELFPAY | PROVIDERS: PCP Internal Medicine; Visit Provider Internal Medicine | DX: Z12.31 Encounter for screening mammogram for malignant neoplasm of breast (principal) | CPT/HCPCS: 77063; 77067 ==

== ENCOUNTER 2024-10-13 17:46 | Outpatient (REF) | payer OTHER, SELFPAY ==
--- NOTE | ~2024-10-13 | MR_ITS ---
EXAMINATION: MR BRAIN WITHOUT CONTRAST CLINICAL INFORMATION: Epilepsy. COMPARISON: None available. TECHNIQUE: MRI of the brain was obtained using routine sequences without contrast. FINDINGS: No acute intracranial hemorrhage, mass effect, midline shift, hydrocephalus or herniation. Hoffman-white matter differentiation is normal. No restricted diffusion. No signal abnormality or volume loss in the hippocampi. Flow-void signal within the main cerebral vessels is normal. Sellar/suprasellar region is normal. Craniocervical junction is intact and normal. Midline structures are normal. Posterior cranial fossa contents demonstrated no signal abnormality or masses. MR/MR head/brain wo con IMPRESSION: No acute or structural brain abnormality. Electronically signed by: Kermit Khan MD 10/16/2024 02:36 PM EST
== END 2024-10-13 17:47 | disposition home or self-care (01) ==
LOC: HO.MRI 17:46
PROVIDERS: PCP Internal Medicine; Visit Provider Internal Medicine
DX: G40.909 Epilepsy, unspecified, not intractable, without status epilepticus (principal); G43.709 Chronic migraine without aura, not intractable, without status migrainosus
CPT/HCPCS: 70551

== ENCOUNTER → 2024-10-13 17:57 | Outpatient (BNV) | payer OTHER, SELFPAY | PROVIDERS: PCP Internal Medicine; Visit Provider Radiology Diagnostic Radiology | DX: G40.909 Epilepsy, unspecified, not intractable, without status epilepticus (principal) | CPT/HCPCS: 70551 ==

== ENCOUNTER 2024-10-27 12:11 | Outpatient (REF) | payer OTHER, SELFPAY ==
--- NOTE | ~2024-10-27 | US_ITS ---
EXAMINATION: MM DIAGNOSTIC DIGITAL BREAST TOMOSYNTHESIS, LEFT Limited left breast ultrasound. CLINICAL INFORMATION: Call back from screening for left breast asymmetries on MLO view. COMPARISON: Mammography: Comparison is made with prior available imaging. TECHNIQUE: Digital breast tomosynthesis is performed in both the craniocaudal and mediolateral oblique views along with computer-aided detection (CAD). Synthesized 2D images are generated from the tomosynthesis. Limited left breast ultrasound. FINDINGS: The breasts are heterogeneously dense, which may obscure small masses (ACR BI-RADS breast composition Category c). 2 circumscribed oval masses measuring 8 and 6 mm in the superior left breast posterior depth on MLO view persists and localizes slightly lateral. No suspicious calcifications or other abnormal findings. Targeted color Doppler ultrasound scanning in the upper outer quadrant of the left breast from 10-3 o'clock demonstrates 2 adjacent simple cyst at 2:00 7 cm from nipple 1 measuring 8 x 7 x 5 mm the other measuring 5 x 4 x 6 mm these correlate with the circumscribed oval masses seen on mammography and are benign. US/US breast LT limited mamm only IMPRESSION: Simple cysts on ultrasound. Benign. ASSESSMENT: BI-RADS BI-RADS 2 - Benign Findings RECOMMENDATION: 1 year F/U Results were provided to the patient at time of visit by the technologist. This patient's information was entered into a reminder system with a target due date for their next mammogram. Electronically signed by: Rhonda Das DO 10/27/2024 01:05 PM [facility]
== END 2024-10-27 12:12 | disposition home or self-care (01) ==
LOC: HO.MAMMO 12:11
PROVIDERS: PCP Internal Medicine; Visit Provider Internal Medicine
DX: N64.89 Other specified disorders of breast (principal)
CPT/HCPCS: 76642; 77061; 77065

== ENCOUNTER → 2024-10-27 12:15 | Outpatient (BNV) | payer OTHER, SELFPAY | PROVIDERS: PCP Internal Medicine; Visit Provider Internal Medicine | DX: N60.02 Solitary cyst of left breast (principal); R92.332 Mammographic heterogeneous density, left breast | CPT/HCPCS: 76642; 77065; G0279 ==

== ENCOUNTER 2025-01-02 08:30 | Outpatient (REF) | payer OTHER, SELFPAY ==
[2025-01-02 08:46] LABS: MANUAL DIFF FLAG NO
[2025-01-02 09:41] LABS: Basophils Percent Auto 0.6 % (0-2); Eosinophils Absolute Auto 0.1 X10*3/uL (0.0-0.4); Eosinophils Percent Auto 0.9 % (0-4); Hematocrit 40.1 % (37.0-47.0); Hemoglobin 13.2 g/dl (12.0-16.0); Imm Gran Abs Auto 0.01 X10*3/uL (0.00-0.03); Imm Gran Pct Auto 0.1 % (0.0-0.4); Lymphocytes Absolute Auto 2.7 X10*3/uL (1.2-4.9); Lymphocytes Percent Auto 39.2 % (20-40); Mean Corpuscular HGB Conc 32.9 g/dl (31.0-35.0); Mean Corpuscular Hemoglobin 28.1 pg (27.0-33.0); Mean Corpuscular Volume 85.5 fL (80.0-98.0); Mean Platelet Volume 14.6 fL (9.4-12.3); Monocytes Absolute Auto 0.7 X10*3/uL (0.1-1.2); Monocytes Percent Auto 9.8 % (2-11); Neutrophils Absolute Auto 3.4 x10*3/uL (2.0-8.3); Neutrophils Percent Auto 49.4 % (45-73); Platelet Count 161 X10*3/uL (160-400); Red Blood Count 4.69 X10*6/uL (4.20-5.50); Red Cell Distribution Width 13.5 % (11.0-16.0); White Blood Count 6.9 X10*3/uL (4.8-10.8)
[2025-01-02 10:28] LABS: Valproate 66.3 mcg/mL (50.0-100.0)
[2025-01-02 10:30] LABS: Alanine Aminotransferase 16 U/L (0-31); Albumin Level 4.2 g/dL (3.5-5.0); Alkaline Phosphatase 62 U/L (39-117); Anion Gap 9 (12-20); Aspartate Amino Transferase 23 U/L (5-31); Bilirubin Total 0.3 mg/dL (0.0-1.0); Blood Urea Nitrogen 12 mg/dL (9-16); Calcium 9.1 mg/dL (8.4-10.2); Carbon Dioxide 24 mmol/L (22-29); Chloride 110 mmol/L (96-108); Cholesterol 167 mg/dL (<200); Estimated Glomerular Filt Rate > 60; Glucose Fasting 82 mg/dL (60-99); HDL Cholesterol 58 mg/dL (>40); LDL Cholesterol Calculated 92 mg/dL (<100); Potassium 3.8 mmol/L (3.3-5.1); Sodium 139 mmol/L (135-145); Total Protein 7.4 g/dL (6.5-8.0); Triglycerides 85 mg/dL (<150)
[2025-01-02 10:50] LABS: TSH reflex Free T4 2.27 uIU/mL (0.32-4.0); Vitamin D 25-OH Total 20.1 ng/mL (>30)
[2025-01-02 10:55] LABS: Appearance Urine Clear; Color Urine Yellow; Glucose Urine UA Negative (Negative); Leukocyte Esterase Urine Negative (Negative); Nitrite Urine Negative (Negative); PH 5.5 (5.0-9.0); UMIC TRIGGER UACC YES; Urine Blood Trace (Negative); Urine Ketones Negative (Negative); Urine Protein Negative (Neg-Trace)
[2025-01-02 10:58] LABS: Bacteria Urine None Seen (None Seen); Hyaline Casts Urine 0-2 /LPF (0-2); WBC Urine 0-5 /HPF (0-5)
[2025-01-02 11:08] LABS: Folate 8.8 ng/mL (> or = 4.0); Vitamin B12 321 pg/mL (200-900)
== END 2025-01-02 08:31 | disposition home or self-care (01) ==
LOC: HO.LAB 08:30
PROVIDERS: PCP Internal Medicine; Visit Provider Internal Medicine
DX: Z00.00 Encounter for general adult medical examination without abnormal findings (principal); E78.00 Pure hypercholesterolemia, unspecified; E53.8 Deficiency of other specified B group vitamins; G40.909 Epilepsy, unspecified, not intractable, without status epilepticus; D64.9 Anemia, unspecified; E55.9 Vitamin D deficiency, unspecified; R30.0 Dysuria
CPT/HCPCS: 36415; 80053; 80061; 80164; 81001; 81003; 82306; 82607; 82746; 84443; 85025

== ENCOUNTER 2025-06-14 02:08 | Emergency (ER) | payer OTHER, SELFPAY ==
--- NOTE | 2025-06-14 | ECG_ITS ---
Test Reason : DIZZINESS Blood Pressure : */* mmHG Vent. Rate : 87 BPM Atrial Rate : 87 BPM P-R Int : 148 ms QRS Dur : 76 ms QT Int : 352 ms P-R-T Axes : 58 16 21 degrees QTcB Int : 423 ms Normal sinus rhythm Normal ECG When compared with ECG of 11-Aug-2023 21:00, No significant change was found Referred By: Generic ED Physician Electronically Signed By: Mateto Hill
--- NOTE | ~2025-06-14 | XR_ITS ---
CLINICAL HISTORY: chest pain 1 view chest x-ray. Comparison: CR/SR - XR CHEST 2 VIEWS - 08/11/23 21:55 EST Findings: No focal pulmonary consolidation, pneumothorax, or pleural effusion. Small linear opacity identified over the right upper lobe. Heart size normal. Impression: 1. Small linear opacity identified over the right upper lobe, possibly consistent with subsegmental atelectasis, scarring, or artifact. Otherwise, no acute cardiopulmonary process. No focal pulmonary consolidation. This document has been electronically signed by: Yefri Jones MD on 06/14/2025 03:54:40
[2025-06-14 02:20] VITALS: BP 133/81; BP 133/87; PULSE 93
[2025-06-14 02:23] VITALS: BP 151/91; PULSE 98
[2025-06-14 02:26] VITALS: BP 135/87; PULSE 94
--- NOTE | 2025-06-14 02:28 | ED.GENADULT ---
HPI - General Adult General Chief complaint: General Medical Stated complaint: Dizziness Time Seen by Provider: 06/14/25 02:13 Source: patient Mode of arrival: ambulatory Limitations: no limitations History of Present Illness ED Provider: Dr. Taylor Daugherty HPI narrative: Patient comes to the emergency room with multiple complaints. Patient states that earlier today she started feeling anxious, feeling dizzy , explained as feeling like she was going to fell backwards but did not fall. No room spinning. Then patient started having left flank pain and then started becoming more anxious. Also, patient states that 2-3 weeks ago she had intravenous laser ablation in both legs. Patient states that sometimes her legs hurt, no swelling, no calf pain, no chest pain or shortness of breath Related Data Home Medications ?Medication ?Instructions ?Recorded ?Confirmed amitriptyline 10 mg tablet 5 mg PO BEDTIME 10/28/22 09/19/24 metoprolol succinate 25 mg 25 mg PO DAILY 10/28/22 09/19/24 tablet,extended release 24 hr Previous Rx's ?Medication ?Instructions ?Recorded albuterol sulfate 90 mcg/actuation 2 puff inhalation Q6H PRN 10/28/22 aerosol inhaler shortness of breath or wheezing 30 days #8.5 grams meclizine 25 mg tablet 25 mg PO TID PRN dizziness #30 tabs 10/28/22 nitrofurantoin 100 mg PO .COMPLEX #30 caps 04/14/23 monohydrate/macrocrystals 100 mg capsule (Macrobid) yextkvvuhm-fikuqjwzgtqtf-pqcecxdb 1 tab PO Q6H PRN headache #20 tabs 06/30/23 50 mg-325 mg-40 mg tablet ibuprofen 600 mg tablet 600 mg PO Q6H PRN fever or pain 08/12/23 #30 tabs venlafaxine 75 mg capsule,extended 75 mg PO DAILY 30 days #30 caps 09/22/24 release 24 hr divalproex 500 mg tablet,delayed 500 mg PO BID 90 days #180 tabs 04/17/25 release (Depakote) lorazepam 0.5 mg tablet 0.5 mg PO .COMPLEX 30 days #60 tabs 04/17/25 meclizine 25 mg tablet 25 mg PO TID PRN dizziness #14 tabs 06/14/25 Allergies Allergy/AdvReac Type Severity Reaction Status Date / Time aspirin (Aspirin) Allergy Severe RASH Verified 06/14/25 02:38 codeine (CODEINE) Allergy Severe ANAPHYLAXIS Verified 06/14/25 02:38 mayonnaise (MAYONNAISE) Allergy Mild UPSET Verified 06/14/25 02:38 STOMACH, RASH morphine (Morphine) Allergy Mild AGITATION/A Verified 06/14/25 02:38 NXIETY Penicillins Allergy Mild RASH Verified 06/14/25 02:38 cheese Allergy Unknown RASH Verified 06/14/25 02:38 latex (LATEX) Allergy Unknown RASH Verified 06/14/25 02:38 shrimp Allergy Shortness Verified 06/14/25 02:38 of Breath acetaminophen (From Tylenol) AdvReac Mild HEADACHES Verified 06/14/25 02:38 BUTTER FLAVOR Allergy Mild RASH, Uncoded 09/19/24 09:17 UPSET STOMACH Chocolate Allergy Mild UPSET Uncoded 09/19/24 09:17 STOMACH, RASH SPICY FOOD Allergy Mild UPSET Uncoded 09/19/24 09:17 STOMACH, RASH Review of Systems Review of Systems: Constitutional : No Weight loss, No Fever, No Chills, No Night Sweats, No Fatigue, No Malaise ENT/Mouth : No Hearing loss, No Ear Pain, No Nasal Congestion, No Sinus Pain, No Hoarseness, No sore throat, No Rhinorrhea, No Swallowing Difficulty Eyes: No Eye Pain, No Swelling, No Redness, No Foreign Body, No Discharge, No Vision Changes Cardiovascular : No Chest Pain, No SOB, No Dyspnea on Exertion, No Orthopnea, No Edema, No Palpitations Respiratory : No Cough, No Sputum, No Wheezing, No Smoke Exposure, No Dyspnea Gastrointestinal : No Nausea, No Vomiting, No Diarrhea, No Constipation, No abdominal Pain, No Hematochezia, No Melena Genitourinary : no irregular bleeding, No Dysuria, No Urinary Frequency, No Hematuria, No Urinary Incontinence, No Urgency, No Flank Pain, No Urinary Flow Changes, No Hesitancy Musculoskeletal : No joint pain, No Myalgias, No Joint Swelling Skin : No Skin Lesions, No rash Neuro : No Weakness, No Numbness, No Paresthesias, No Loss of Consciousness, complaining of dizziness described as sensation of falling back, no headache Psych : Admits to feeling anxious No Depression, No SI/HI/AH/VH, No Social Issues, Heme/Lymph: No Bruising, No Bleeding,No Lymphadenopathy Endocrine : No Polyuria, No Polydipsia, No Temperature Intolerance [facility] Past Medical History Medical History Overweight (BMI 25.0-29.9) Palpitations Pelvic pain in female Nephrolithiasis Epilepsy Asthma Chronic migraine Anxiety Depression Surgical History (Updated 09/19/24 @ 09:31 by Kwame Sutton MD) History of laparoscopic cholecystectomy History of tubal ligation Family History Family History Father Hypertension Stroke CVD (cardiovascular disease) Mother CVD (cardiovascular disease) Hypertension Brother No problems noted. Sister No problems noted. Son No problems noted. Daughter No problems noted. Daughter No problems noted. Social History Social History Housing: Apartment Alcohol intake: never Patient Tobacco Use Status: Never used Tobacco Smoked in Last 30 Days: No e-Cigarette/Vaping Use: Never Used Second Hand Smoke Exposure: No Use of substances other than those prescribed or required for medical reasons: No Advance Directives: No Advance Directives Information Provided: Yes Do you have a plan to hurt others: No Plan service: No Current occupational status: disabled Cognitive needs: No Hearing needs: No Vision needs: No Physical Exam ED Exam Exam: Appearance: Alert. Oriented X3. No acute distress. Eyes: Pupils equal, round and reactive to light. ENT: Pharynx normal. Neck: Normal inspection. Neck supple. No lymph nodes noted. No crepitus CVS: Normal heart rate and rhythm. Pulses normal. Normal S1 and S2, no reproducible pain to palpation Respiratory: No respiratory distress. Breath sounds normal. No Wheezing. No rales Abdomen: Soft and nontender. No rigidity. No distention. Skin: Skin warm and dry. Normal skin color. Normal skin turgor. Extremities: No lower extremity edema. No Lacerations. No Rash, no ecchymosis, no lower extremity edema, no calf pain to palpation Neuro: Oriented X 3. No motor deficit. No sensory deficit. Moving all extremities. No slurred speech. CN 2 through 12 grossly intact Psych: calm, cooperative, anxious Vital Signs: Vital Signs - 24 hr 06/14/25 02:20 06/14/25 02:23 06/14/25 02:26 Temperature Pulse Rate 93 98 94 Respiratory Rate Blood Pressure 133/87 151/91 H 135/87 Pulse Oximetry Oxygen Delivery Method 06/14/25 02:30 06/14/25 02:34 Temperature 98.4 F 98.4 F Pulse Rate 85 88 Respiratory Rate 14 20 Blood Pressure 135/87 135/87 Pulse Oximetry 98 98 Oxygen Delivery Method Room Air Room Air BMI result Body Mass Index 32.1 Course Course Course Narrative: Patient arrives with multiple complaints including anxiety, chest pain, nausea, back pain, leg pain for 2 weeks in specific spots in the upper thighs Patient states that all of her symptoms triggered her anxiety At this time patient denies chest pain or shortness of breath Medications Administered Discontinued Medications Generic Name Dose Route Start Last Admin Trade Name Freq PRN Reason Stop Dose Admin Lorazepam 2 mg 06/14/25 02:28 06/14/25 02:44 Lorazepam 1 Mg Tablet PO 06/14/25 02:29 2 mg ONCE ONE Administration Meclizine HCl 50 mg 06/14/25 02:28 06/14/25 02:45 Meclizine Hcl 25 Mg Tablet PO 06/14/25 02:29 50 mg ONCE ONE Administration Medical Decision Making Medical Decision Making [facility] Narrative: My interpretation of EKG: Normal sinus rhythm, heart rate 87, no ST segment depression or elevation, no T-wave inversion, QTC 423 My interpretation of labs: No hematology abnormality, normal chemistry, normal LFTs, normal troponin, urinalysis negative for UTI, ETOH level negative Patient's vitals: Blood pressure 135/87, pulse 88, respirations 20, temperature 98.4 degrees, oxygen saturation 98% on room air Patient has normal steady gait, good truncal stability, CVA, TIA not suspected Patient has not reported any seizure-like activity, unlikely the patient had a seizure Chest x-ray shows a small linear opacity, possible atelectasis versus scarring. Patient has no symptoms in the right upper lobe area. Overall, patient feels better now, had Ativan and meclizine. Patient feeling better Differential Diagnosis Differential Diagnoses: The differential diagnosis associated with the presentation includes (Anxiety, viral syndrome, seizures, UTI) Admission/Observation Consideration of admission/observation: Escalation of care including admission/observation considered (Given patient's multiple complaints, observation was considered) Lab Data [facility] Lab Attestation statement: I reviewed the patient's lab results. 06/14/25 02:27 06/14/25 02:27 Labs: Lab Results 06/14/25 06/14/25 Range/Units 02:27 02:34 WBC 9.7 (4.8-10.8) X10*3/uL RBC 4.58 (4.20-5.50) X10*6/uL Hgb 12.8 (12.0-16.0) g/dl Hct 38.1 (37.0-47.0) % MCV 83.2 (80.0-98.0) fL MCH 27.9 (27.0-33.0) pg MCHC 33.6 (31.0-35.0) g/dl RDW 13.6 (11.0-16.0) % Plt Count 175 (160-400) X10*3/uL MPV 13.6 H (9.4-12.3) fL Absolute Nucleated RBC 0.000 (0.0-0.012) X10*3/uL Nucleated RBC % (auto) 0.0 (0.0-0.2) /100WBC Sodium 143 (135-145) mmol/L Potassium 3.7 (3.3-5.1) mmol/L Chloride 109 H (96-108) mmol/L Carbon Dioxide 24 (22-29) mmol/L Anion Gap 14 (12-20) BUN 11 (9-16) mg/dL Creatinine 0.82 (0.5-1.4) mg/dL Estim Creat Clear Calc 77.9 Estimated GFR > 60 Random Glucose 92 (60-115) mg/dL Calcium 9.5 (8.4-10.2) mg/dL Total Bilirubin 0.3 (0.0-1.0) mg/dL AST 25 (5-31) U/L ALT 26 (0-31) U/L Alkaline Phosphatase 78 (39-117) U/L Troponin I High Sens < 2.7 (<3.5-17.0) ng/L Total Protein 7.8 (6.5-8.0) g/dL Albumin 4.4 (3.5-5.0) g/dL Beta HCG, Quant < 2 mIU/mL Urine Color Yellow Urine Appearance Clear Urine pH 7.0 (5.0-9.0) Ur Specific Spencer 1.010 (1.005-1.025) Urine Protein Negative (Neg-Trace) mg/dL Urine Glucose (UA) Negative (Negative) mg/dL Urine Ketones Negative (Negative) mg/dL Urine Blood Negative (Negative) Urine Nitrite Negative (Negative) Ur Leukocyte Esterase Small (1+) H (Negative) Urine RBC 0-2 (0-2) /HPF Urine WBC 6-10 (0-5) /HPF Ur Squamous Epith Cells 3-5 (0-2) /HPF Urine Bacteria Trace (None Seen) Hyaline Casts 0-2 (0-2) /LPF Ethyl Alcohol < 10 mg/dL Independent Interpretation I performed an independent interpretation of an: EKG Critical Care Time Critical Care Time Critical Care Time: Yes Total Critical Care Time: 35 Attestation: I have personally provided critical care time. Time includes review of lab data, radiology results, discussion with consultants, and monitoring for potential decompensation. Intervention performed as documented. Discharge Plan Discharge Clinical Impression: Dizziness Patient Disposition: Home, Self-Care Instructions: Dizziness (ED) Additional Instructions: Please follow-up with your primary care physician tomorrow. If you have any worsening or new symptoms, please return to the emergency room or call 911 Prescriptions: New meclizine 25 mg tablet 25 mg PO TID PRN (Reason: dizziness) Qty: 14 0RF No Action venlafaxine 75 mg capsule,extended release 24hr 75 mg PO DAILY 30 Days Qty: 30 1RF divalproex [Depakote] 500 mg tablet,delayed release (DR/EC) 500 mg PO BID 90 Days Qty: 180 1RF lorazepam 0.5 mg tablet 0.5 mg PO .COMPLEX 30 Days Qty: 60 0RF Rx Instructions: 0.5 mg orally 1 tablet at bedtime and 1 tablet as needed (up to 2x/day); mzjbikosss-eclmvbvxlsxpp-dczj 50-325-40 mg tablet 1 tab PO Q6H PRN (Reason: headache) Qty: 20 0RF ibuprofen 600 mg tablet 600 mg PO Q6H PRN (Reason: fever or pain) Qty: 30 0RF albuterol sulfate 90 mcg/actuation HFA aerosol inhaler 2 puff inhalation Q6H PRN (Reason: shortness of breath or wheezing) 30 Days Qty: 8.5 3RF meclizine 25 mg tablet 25 mg PO TID PRN (Reason: dizziness) Qty: 30 0RF amitriptyline 10 mg tablet 5 mg PO BEDTIME metoprolol succinate 25 mg tablet extended release 24 hr 25 mg PO DAILY nitrofurantoin monohyd/m-cryst [Macrobid] 100 mg capsule 100 mg PO .COMPLEX Qty: 30 3RF Rx Instructions: 100 mg orally use after intercourse prn as directed; do not take on an empty stomach Print Language: Italian
[2025-06-14 02:30] VITALS: BP 135/87; PULSE 85; RESP 14; TEMP 36.9; O2SAT 98
[2025-06-14 02:34] VITALS: BP 135/87; BP 136/92; PULSE 88; PULSE 95; RESP 20; TEMP 36.9; O2SAT 98; BMI 32.1
[2025-06-14 02:39] LABS: Mean Corpuscular HGB Conc 33.6 g/dl (31.0-35.0); Mean Corpuscular Hemoglobin 27.9 pg (27.0-33.0); NRBC Abs Auto 0.000 X10*3/uL (0.0-0.012); NRBC Pct Auto 0.0 /100WBC (0.0-0.2)
--- NOTE | 2025-06-14 02:40 | PC.NURSE ---
pt changed over into hospital attire, placed on bedside monitor, EKG completed, labs collected and sent, medicated per nov.
[2025-06-14 02:41] LABS: Hematocrit 38.1 % (37.0-47.0); Hemoglobin 12.8 g/dl (12.0-16.0); Mean Corpuscular Volume 83.2 fL (80.0-98.0); PLT CLUMP 1; Red Blood Count 4.58 X10*6/uL (4.20-5.50)
--- NOTE | 2025-06-14 02:41 | PC.NURSE ---
ortho statics completed.
[2025-06-14 02:42] LABS: PLT ABN DIST 1; WBC ABN SCTR FOR CBC 1
[2025-06-14 02:49] LABS: Appearance Urine Clear; Glucose Urine UA Negative (Negative); PH 7.0 (5.0-9.0); Specific Gravity - Urine 1.010 (1.005-1.025); UMIC TRIGGER UACC YES
[2025-06-14 02:56] LABS: Platelet Count 175 X10*3/uL (160-400); White Blood Count 9.7 X10*3/uL (4.8-10.8)
[2025-06-14 02:58] LABS: Alanine Aminotransferase 26 U/L (0-31); Albumin Level 4.4 g/dL (3.5-5.0); Alkaline Phosphatase 78 U/L (39-117); Anion Gap 14 (12-20); Aspartate Amino Transferase 25 U/L (5-31); Blood Urea Nitrogen 11 mg/dL (9-16); Calcium 9.5 mg/dL (8.4-10.2); Carbon Dioxide 24 mmol/L (22-29); Chloride 109 mmol/L (96-108); Creatinine Clr Calc Pharmacy 77.9; Estimated Glomerular Filt Rate > 60; Potassium 3.7 mmol/L (3.3-5.1); Sodium 143 mmol/L (135-145); Total Protein 7.8 g/dL (6.5-8.0)
[2025-06-14 03:04] LABS: Troponin-I High Sensitivity < 2.7 ng/L (<3.5-17.0)
[2025-06-14 03:07] LABS: UACC Culture Trigger YES
--- NOTE | 2025-06-14 04:39 | PC.NURSE ---
Reviewed discharge instructions completed with pt. pt verbalized understanding. no sign of distress upon discharge.
[2025-06-14 04:40] VITALS: BP 144/69; PULSE 84; RESP 20; TEMP 36.9; O2SAT 98
== END 2025-06-14 04:43 | disposition home or self-care (01) ==
PROVIDERS: Emergency Provider Emergency Medicine; PCP Internal Medicine
DX: R42 Dizziness and giddiness (principal); M79.605 Pain in left leg; M79.604 Pain in right leg; F41.9 Anxiety disorder, unspecified; R10.2 Pelvic and perineal pain; Z51.81 Encounter for therapeutic drug level monitoring; Z79.899 Other long term (current) drug therapy
CPT/HCPCS: 36415; 71045; 80053; 80307; 81001; 84484; 84702; 85027; 87086; 93005; 99283; 99285

== ENCOUNTER → 2025-06-14 02:16 | Outpatient (BNV) | payer OTHER, SELFPAY | PROVIDERS: Emergency Provider Emergency Medicine; PCP Internal Medicine; Visit Provider Internal Medicine Cardiovascular Disease | DX: R42 Dizziness and giddiness (principal) | CPT/HCPCS: 93010 ==

== ENCOUNTER → 2025-06-14 02:54 | Outpatient (BNV) | payer OTHER, SELFPAY | PROVIDERS: Emergency Provider Emergency Medicine; PCP Internal Medicine; Visit Provider Radiology Diagnostic Radiology | DX: R07.9 Chest pain, unspecified (principal) | CPT/HCPCS: 71045 ==

== ENCOUNTER 2025-08-10 09:40 | Outpatient (AMB) | payer OTHER, SELFPAY ==
--- NOTE | 2025-08-10 09:42 | A.OFFVIS_ITS ---
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 Service Required: No Information Interpreted: non-clinical & clinical Academic Affairs Specialist: Academic Affairs Specialist Present (Wandy Vigil LPN) Accompanied by: Self / Same As Patient Allergies aspirin (Aspirin) Allergy (Severe, Verified 06/14/25 02:38) RASH codeine (CODEINE) Allergy (Severe, Verified 06/14/25 02:38) ANAPHYLAXIS mayonnaise (MAYONNAISE) Allergy (Mild, Verified 06/14/25 02:38) UPSET STOMACH, RASH morphine (Morphine) Allergy (Mild, Verified 06/14/25 02:38) AGITATION/ANXIETY Penicillins Allergy (Mild, Verified 06/14/25 02:38) RASH cheese Allergy (Unknown, Verified 06/14/25 02:38) RASH latex (LATEX) Allergy (Unknown, Verified 06/14/25 02:38) RASH shrimp Allergy (Verified 06/14/25 02:38) Shortness of Breath acetaminophen (From Tylenol) Adverse Reaction (Mild, Verified 06/14/25 02:38) HEADACHES BUTTER FLAVOR Allergy (Mild, Uncoded 09/19/24 09:17) RASH, UPSET STOMACH Chocolate Allergy (Mild, Uncoded 09/19/24 09:17) UPSET STOMACH, RASH SPICY FOOD Allergy (Mild, Uncoded 09/19/24 09:17) UPSET STOMACH, RASH Medication List - Last Reconciled 08/10/25 by Clementine Oglesby CNM albuterol sulfate 90 mcg/actuation 2 puffs inhalation Q6H PRN 30 days amitriptyline 5 mg PO BEDTIME [id number]-plqqrabanykvk-hojd 50-325-40 mg 1 tab PO Q6H PRN divalproex (Depakote) 500 mg PO BID 90 days ibuprofen 600 mg PO Q6H PRN lorazepam 0.5 mg orally 1 tablet at bedtime and 1 tablet as needed (up to 2x/day); 30 days meclizine 25 mg PO TID PRN metoprolol succinate ER 25 mg PO DAILY venlafaxine ER 75 mg PO DAILY 30 days Is last menstrual period known: Yes Last menstrual period: 07/08/25 Do you need a note to return to daycare/school/sports/work: No HPI Comments Details: Pt presents today for ANNUAL exam , she is new to the office and here to establish care She has the following concerns: vag discharge with odor , especially with intercourse. she has taken probiotics with little effect. she is concerned of her husbands infidelity, they are currently and requesting complete STD screening, including serum testing She is in a relationship x 16 yrs. 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 Last mammo: 10/2024 2 simple cyst noted to follow up in one year reports + fam hx Br Ca mom and dad side with + BRCA, reports she has not had BRCA screening and is interested in more testing Followed by Neuro for epilepsy s/p head injury age 20. + hx dep/anx does not like to take the anti-depressants as it makes her feel drowsy, she is not interested in counseling, has used in the past and did not feel it was helpful PFS Medical History Overweight (BMI 25.0-29.9) Palpitations Pelvic pain in female Nephrolithiasis Epilepsy Asthma Chronic migraine Anxiety Depression Surgical History History of laparoscopic cholecystectomy History of tubal ligation Family History (Updated 08/10/25 @ 12:07 by Clementine Oglesby CNM) Father Hypertension Stroke CVD (cardiovascular disease) Skin cancer Mother CVD (cardiovascular disease) Hypertension Brother No problems noted. Sister No problems noted. Son No problems noted. Daughter No problems noted. Daughter Abnormal skin growth Maternal Aunt Breast CA Paternal Aunt Breast CA Paternal Aunt Ovarian cancer Social History Housing: Apartment Alcohol intake: never Patient Tobacco Use Status: Never used Tobacco e-Cigarette/Vaping Use: Never Used Second Hand Smoke Exposure: No service: No Current occupational status: disabled Cognitive needs: No Hearing needs: No Vision needs: No Female Reproductive History Menstrual Age of Menarche: 13 Date of last menstrual period: 07/08/25 control method: permanent sterilization Total pregnancies: 3 Number of Living Children: 3 Date of last pap smear: 08/10/03 History of abnormal pap smear: Yes (2002 abnormal done at [facility]) Date of Mammogram: 10/04/24 Review of Systems Const Reports no additional complaints Eyes Reports no additional complaints ENT Reports no additional complaints Card Reports no additional complaints Resp Reports no additional complaints GI Reports no additional complaints Reports as per [facility] Skin/Breast Reports system reviewed and no additional complaints, except as documented Neuro Reports as per HPI Psych Reports as per HPI Physical Exam Vital Signs: Last Vital Signs BP 106/60 08/10/25 09:44 BMI result Body Mass Index 27.4 Const General: cooperative, healthy appearing and no acute distress Orientation/consciousness: patient oriented x3 HEENT Head: Yes normal to inspection and Yes normocephalic Ears: external ears normal General nose exam: Normal external nose present Neck Neck: Yes normal visual inspection Chest Breast/axilla inspection: normal inspection of the breasts, normal inspection of the axillae and Other (No skin changes, peau d orange, or nipple discharge noted) Breast/axilla palpation: normal palpation of the axillae, no axillary lymphadenopathy and other (left breast tender mobile cyst 2cm from nipple @ 7 oclock) Chest/axillae images: 2 1. 2cm from nipple, mobile , tender cyst at 7 o'clock Resp Effort & Inspection: normal respiratory effort and able to speak in complete sentences GI Inspection: No distended Palpation (GI): Soft to palpation, nontender and no masses Percussion: Yes normal to percussion Rectal Exam - Female: External hemorrhoid(s) present ([present/absent]) External Female Exam: normal external appearance and normal appearance of the urethra Speculum Exam - Vagina: normal appearance of the vagina and normal vaginal discharge Speculum Exam - Cervix: normal appearance of the cervix and normal palpation (neg CMT) Bimanual exam- vagina & uterus: normal bimanual exam, normal palpation (neg CMT), uterine mobility normal and non-tender Bimanual Exam- Adnexa, other: no masses and No adnexal tenderness Skin General skin exam: no rashes or lesions noted Neuro General: patient oriented x3 and moves all extremities Extrem General: Yes full ROM Psych Speech and movement: Normal speech and movement present Affect: normal affect Attitude: cooperative Thought process: Normal thought process present Assessment & Plan Assessment & Plan (1) Encounter for well woman exam with routine gynecological exam: Code(s): Z01.419 - Encounter for gynecological examination (general) (routine) without abnormal findings (2) Screening breast examination: Code(s): Z12.39 - Encounter for other screening for malignant neoplasm of breast (3) Encounter for screening examination for sexually transmitted infection: Code(s): Z11.3 - Encounter for screening for infections with a predominantly sexual mode of transmission (4) Vaginal odor: Code(s): N89.8 - Other specified noninflammatory disorders of vagina (5) Encounter for screening for malignant neoplasm of cervix: Code(s): Z12.4 - Encounter for screening for malignant neoplasm of cervix (6) Family history of BRCA gene mutation: Code(s): Z84.81 - Family history of carrier of genetic disease (7) Family history of breast cancer: Code(s): Z80.3 - Family history of malignant neoplasm of breast Plan During the visit, the following areas of concern were addressed: Monitoring of the menstrual cycle Regular exercise Healthy lifestyle STD strategies to avoid exposure Domestic violence Menopausal/bree-menopausal signs and symptoms, including nonprescription strategies for management Health Maintenance and Screening -Reviewed ASCCP guidelines for Paps and yearly (bi-yearly ) pelvic exam. -Reviewed and encouraged diet and exercise for cardiovascular and bone health -Reviewed breast self-awareness. Importance of yearly mammogram after age 40 (earlier if first-degree relative with breast cancer at a younger age ) Discuss use of 3 times per week weight-bearing exercise, vitamin D3 and servings of dietary calcium daily for bone health. -continue to follow with PCP for general medical care, immunizations. Family and personal history of cancer reviewed. Genetic screening optional - referral genetics The patient has BMI: 27.4 The patient is overweight. Approaches towards weight loss are discussed including burning more calories than one takes in by frequent, small meals, portion control, avoiding eating before bedtime, regular exercise with an emphasis on duration rather than intensity, strength training exercise, referral to trailhead construction worker or to weight loss management center upon patient request. RTO one year or sooner prronak Oglesby CNM Note about provider documentation : If you or the patient named in this chart and are reviewing your medical notes, please note that medical documentation is often written with abbreviations and medical terminology, and directed for other providers who may be involved in your care as well. Documentation is critical to record what has happened, what tests were ordered, and so they are interpreted with the resulting diagnoses. These nodes have been made available for patient review but not specifically written for the patient. Important health information is always given to my patients in clinical instructions. Please review your after visit summary and our contact our clinical staff if you have any questions. Orders: Orders 2 HIV Ab/Ag Today B96.89 - Other specified bacterial agents as the cause of diseases classified elsewhere, N76.0 - Acute vaginitis Hepatitis B Surface Antigen Today Z20.2 - Contact with and (suspected) exposure to infections with a predominantly sexual mode of transmission Pap Smear Today Z01.419 - Encounter for gynecological examination (general) (routine) without abnormal findings, Z12.4 - Encounter for screening for malignant neoplasm of cervix Hepatitis C Antibody Today B96.89 - Other specified bacterial agents as the cause of diseases classified elsewhere, N76.0 - Acute vaginitis Bacterial Vaginosis Panel Today N89.8 - Other specified noninflammatory disorders of vagina CT NG by PCR Vag/Cerv Today Z11.3 - Encounter for screening for infections with a predominantly sexual mode of transmission Syphilis Screen Today B96.89 - Other specified bacterial agents as the cause of diseases classified elsewhere, N76.0 - Acute vaginitis HPV High risk Today Z01.419 - Encounter for gynecological examination (general) (routine) without abnormal findings Referrals 2 Genetics Referral Z80.3 - Family history of malignant neoplasm of breast, Z84.81 - Family history of carrier of genetic disease Coding Level of Care Code New Pt Prev Care 40-64y([id number]) Diagnoses Encounter for well woman exam with routine gynecological exam Z01.419 Screening breast examination Z12.39 Encounter for screening examination for sexually transmitted infection Z11.3 Vaginal odor N89.8 Encounter for screening for malignant neoplasm of cervix Z12.4 Family history of BRCA gene mutation Z84.81 Family history of breast cancer Z80.3
[2025-08-10 09:44] VITALS: BP 106/60; BMI 27.4
== END 2025-08-10 10:36 | disposition home or self-care (01) ==
LOC: HO.HWS 09:40
PROVIDERS: PCP Internal Medicine; Visit Provider Advanced Practice Midwife
DX: Z01.419 Encounter for gynecological examination (general) (routine) without abnormal findings (principal); N89.8 Other specified noninflammatory disorders of vagina; Z12.39 Encounter for other screening for malignant neoplasm of breast; Z11.3 Encounter for screening for infections with a predominantly sexual mode of transmission; Z84.81 Family history of carrier of genetic disease; Z80.3 Family history of malignant neoplasm of breast
CPT/HCPCS: 99386; 99459

== ENCOUNTER 2025-08-10 09:40 | Outpatient (REF) | payer OTHER, SELFPAY ==
--- OUTSIDE RECORDS SUMMARY | 2025-06-08 06:30 | XMS_ITS | Continuity of Care Document ---
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 Name Role Phone Enrique HERNANDES, ANSON, Javan POOL Unavailable U navailable Allergies, Adverse Reactions, Alerts Substance Reaction Status Criticality morphine Active No Information PENICILLIN Active No Information aspirin Active No Information Procedures Procedure Date Varithena, Single Truncal Vein - CT & [place] Duplex Scan-extrem Veins; Uni/ CT & [place] S Varithena, Single Truncal Vein - CT & [place] Offic/outpt E&m Estab 5 Min Trial- Telem edicine CT & [place] Office/Oupt E&M New Pt 45 Mins- CT & [place] Surgical Stockings CVR Reveal Knee High Duplex Scan-extrem Veins; Comp- CT & [place] Advance Directives Directive Yes / No Effective Date File Name No Information Encounters Encounter Description Practice Location Reason(s) For Visit Diagnoses Date Provider Providers Copied on Encounter [facility], [address] [place] [address] Dr Arguelles [address], [place], [id number], [place] tel:[phone] CV[place] Varicose veins of left lower extremity with other complications Sep- Enrique HERNANDES, YRN GRIGGS. [address] [facility] [address], [place], [id number] , [place]. tel: [phone] Referring Provider: Kwame Sutton MD, [address] [place] [address] Dr [address], [place], [address]. tel:[phone] [facility], [address] [place] [address] Dr Arguelles [address]Suite Darío Lopez [place], [id number], [place] [phone] CV[place] - [place] Encounter for follow-up examination after completed treatment for conditions other than malignant neoplasmChroni c venous hypertension (idiopathic) with other complications of right lower extremity Sep-1 5 Enrique HERNANDES RVT, RYN [place]. [address] [place] [address], [address], [facility] [place], [id number] , [place]. tel:[phone] Referring Provider: Javan Nunez MD, RVT, YRN, [address] [place] [address], [facility] [place], [address] . tel:[phone] [facility], [address] [place] [address] Dr Arguelles [address]Suite Darío Lopez [place], [id number], [place] [phone] CVR - [facility] Varicose veins of right lower extremity with other complications Sep-0 5 Enrique HERNANDES RVT, YRN [place]. [address] [place] [address], [address], [facility] [place], [id number] , [place]. tel:[phone] Referring Provider: Kwame Sutton MD, [address] [place] [address] Dr [address], [place], [address]. tel:[phone] [facility], [address] [place] [address] Dr Argu[address]Darío [place], [id number], [place] [phone] CVR - [place] No Information 5 Enrique HERNANDES RVT, YRN [place]. [address] [place] [address], [address], [facility] [place], [id number] , [place]. tel:[phone] Offic/outpt E&m Estab 5 Min Trial- Telemedicine CT & [place] [facility], [address] [place] [address] Dr Argu[address]Darío [place], [id number], [place] tel:[phone] CVR - [place] Localized edemaCramp and spasmVenous insufficiency (chronic) (peripheral) 5 Enrique HERNANDES RVT, RPVI Robert. [address] [place] [address], Roberta [place]aint [place], [id number] , [place]. [phone] Referring Provider: Kwame Sutton MD, [address] [place] [address] Dr [address], [place], [address]. tel:[phone] Office/Oupt E&M New Pt 45 Mins- CT & [place] [facility], [address] [place] [address] Dr [address]Darío [place], [id number], [place] tel:[phone] CVR - [place] Chronic venous hypertension (idiopathic) with other complications of bilateral lower extremityVenou s insufficiency (chronic) (peripheral)Cr amp and spasmLocalized edema 5 Enrique HERNANDES RVT, RPVI Robert. [address] [place] [address], Rober[place], [id number] , [place]. [phone] Referring Provider: Kwame Sutton MD, [address] [place] [address] Dr [address], [place], [address]. tel:[phone] [facility], [address] [place] [address] [address]Darío [place], [id number], [place] tel:[phone] CVR - [facility] Chronic venous hypertension (idiopathic) with other complications of bilateral lower extremity 5 Enrique HERNANDES RVT, RPVI Robert. [address] [place] [address], Roberta toussaint [place], [id number] , [place]. [phone] Referring Provider: Javan Nunez MD, RVT, RPVI, [address] [place] [address], [place], [address] . tel:[phone] Family History Family Member Type Diagnosis Age At Onset No Information Payers Payer name Insurance type Covered republican ID Authorviktoriyaa tibárbara(s) [facility] CI [id number] Social History Type Description Quantity Date Captured Comments Sex Female Smoking Status No Information Chief Complaint And Reason For Visit No Information Reason For Referral Reason For Referral No Information Plan Of Treatment Date Type Action Status Goal Diet education completed Referral Ordered: Weight management: Referral to physician timeframe: 3 Months (related to Body mass index (BMI) 24.0-24.9, adult) ordered History Of Present Illness Encounter Date Complaint History Of Prese nt Illness No Information Functional Status Date Functional Assessmen t No Information Instructions Date Instruction Additional Infor mation Patient education booklet given Related to Localized edema Pre and post instruc tions reviewed and provided Related to Localized edema Patient education booklet given Related to Chronic venous hypertension (idiopathic) with other complications of bilateral lower extremity Pre and post instruc tions reviewed and provided Related to Chronic venous hypertension (idiopathic) with other complications of bilateral lower extremity Diet education Related to Body mass index (BMI) 24.0-24.9, adult Giving Encouragement to exercise Related to Body mass index (BMI) 24.0-24.9, adult Lifestyle education Related to B kevin mass index (BMI) 24.0-24.9, adult Assessments Type Assessment Date No Information Patient Care Teams Name Effective Dates (start - stop) Status Members No Information
[2025-08-10 14:57] LABS: Bacterial Vaginosis PCR NEGATIVE (Negative); Candida Group PCR NOT DETECTED (Not Detect); Candida glab krusei PCR NOT DETECTED (Not Detect); Trichomonas vaginalis PCR NOT DETECTED (Not Detect)
[2025-08-10 15:27] LABS: CT PCR NOT DETECTED (Not Detect.); NG PCR NOT DETECTED (Not Detect.)
== END 2025-08-10 09:41 | disposition home or self-care (01) ==
LOC: HO.LNP 09:40
PROVIDERS: PCP Internal Medicine; Visit Provider Advanced Practice Midwife
DX: Z13.89 Encounter for screening for other disorder (principal)
CPT/HCPCS: 81515; 87491; 87591; 87626; 88175

== ENCOUNTER 2025-08-10 10:48 | Outpatient (REF) | payer OTHER, SELFPAY ==
[2025-08-10 12:41] LABS: HBsAGNum1 0.28 S/CO (0.00-0.99); HIV Num 1 0.06 S/CO (0.00-0.99); Hepatitis B Surface Antigen Negative (Negative); ~HepC Num1 0.18 S/CO (0.00-0.79); ~Hepatitis C Antibody Nonreactive (Nonreactive)
[2025-08-10 12:42] LABS: Syphilis Screen Nonreactive (Nonreactive)
== END 2025-08-10 10:49 | disposition home or self-care (01) ==
LOC: HO.LAB 10:48
PROVIDERS: PCP Internal Medicine; Visit Provider Advanced Practice Midwife
DX: Z01.419 Encounter for gynecological examination (general) (routine) without abnormal findings (principal); Z11.51 Encounter for screening for human papillomavirus (HPV); B96.89 Other specified bacterial agents as the cause of diseases classified elsewhere; Z20.2 Contact with and (suspected) exposure to infections with a predominantly sexual mode of transmission; Z11.4 Encounter for screening for human immunodeficiency virus [HIV]; N76.0 Acute vaginitis
CPT/HCPCS: 36415; 81515; 86780; 86803; 87340; 87389; 87491; 87591; 87626; 88175